=== PATIENT | male | born 1960 | race Caucasian/White ===

== ENCOUNTER 2021-03-06 06:59 | Day surgery (SDC) | payer MEDICARE, MEDICAID, SELFPAY ==
[2021-02-28 10:10] VITALS: BMI 26.2
--- NOTE | 2021-03-04 14:30 | P.CONAN_ITS ---
Documented by User: Michelle Gupta 03/04/21 14:31 HPI - Anesthesia Eval Consult details Narrative: 60yo M for Upper Endoscopy and Colonoscopy [facility] Past Medical History Medical History Back pain DDD (degenerative disc disease) Elevated cholesterol GERD (gastroesophageal reflux disease) History of asbestos exposure Hx of migraines Hypothyroidism Psoriatic arthritis Spinal stenosis Surgical History Surgical History Hx of cholecystectomy Hx of colonoscopy Hx of left inguinal hernia repair Hx of left inguinal hernia repair Hx of lumbar discectomy Hx of right inguinal hernia repair S/P scrotal varicocelectomy Social History Social History Are you a primary career and guidance counselor to a significant other at home: No Do you presently have visiting nurse or other home services: No Smoking Status: Never smoker Use of substances other than those prescribed or required for medical reasons: No Have you been hit, kicked, punched, or otherwise hurt by someone within the past year? If so, by whom?: No Advance Directives: No Advance Directives Information Provided: No Advance Directives on File: No Recently lost weight without trying: No Meds Allergies Allergy/AdvReac Type Severity Reaction Status Date / Time carisoprodol [From SOMA] Allergy Severe THROAT Unverified 02/28/21 09:58 SWELLING methotrexate [METHOTREXATE] Allergy Severe SEVERE Unverified 02/28/21 09:58 COUGH, cough monosodium glutamate [MSG] Allergy Severe MIGRAINES Unverified 02/28/21 09:58 Benadryl Allergy Unknown throat Uncoded 02/28/21 09:58 swelling Home Medications Medication Instructions Recorded Confirmed Last Taken Type diazepam 1 tab PO BEDTIME 02/28/21 02/28/21 Unknown History etanercept [Enbrel SureClick] 1 syringe SUBCUT QWEEK 02/28/21 02/28/21 Unknown History levothyroxine 1 tab PO DAILY 02/28/21 02/28/21 Unknown History omeprazole 1 cap PO DAILY 02/28/21 02/28/21 Unknown History oxycodone 1 tab PO QID PRN 02/28/21 02/28/21 Unknown History sumatriptan succinate 1 tab PO DIRECTED 02/28/21 02/28/21 Unknown History Exam Exam Date and Time: March 04, 2021 1430 Height,Weight and Vital Signs: Height 5 ft 9 in Weight 80.739 kg Assessment and Plan Assessment Anesthesia Assessment: Chart Reviewed Documented by User: Rachelle Vale 03/06/21 08:01 [facility] Past Medical History Medical History Back pain DDD (degenerative disc disease) Elevated cholesterol GERD (gastroesophageal reflux disease) History of asbestos exposure Hx of migraines Hypothyroidism Psoriatic arthritis Spinal stenosis Family History Family history of problems with anesthesia: No Surgical History Surgical History Hx of cholecystectomy Hx of colonoscopy Hx of left inguinal hernia repair Hx of left inguinal hernia repair Hx of lumbar discectomy Hx of right inguinal hernia repair S/P scrotal varicocelectomy History of Problems with Anesthesia: No Social History Social History Are you a primary career and guidance counselor to a significant other at home: No Do you presently have visiting nurse or other home services: No Smoking Status: Never smoker Use of substances other than those prescribed or required for medical reasons: No Have you been hit, kicked, punched, or otherwise hurt by someone within the past year? If so, by whom?: No Advance Directives: No Advance Directives Information Provided: No Advance Directives on File: No Recently lost weight without trying: No Meds Allergies Allergy/AdvReac Type Severity Reaction Status Date / Time carisoprodol [From SOMA] Allergy Severe THROAT Unverified 02/28/21 09:58 SWELLING methotrexate [METHOTREXATE] Allergy Severe SEVERE Unverified 02/28/21 09:58 COUGH, cough monosodium glutamate [MSG] Allergy Severe MIGRAINES Unverified 02/28/21 09:58 Benadryl Allergy Unknown throat Uncoded 02/28/21 09:58 swelling Home Medications Medication Instructions Recorded Confirmed Last Taken Type diazepam 1 tab PO BEDTIME 02/28/21 02/28/21 Unknown History etanercept [Enbrel SureClick] 1 syringe SUBCUT QWEEK 02/28/21 02/28/21 Unknown History levothyroxine 1 tab PO DAILY 02/28/21 02/28/21 Unknown History omeprazole 1 cap PO DAILY 02/28/21 02/28/21 Unknown History oxycodone 1 tab PO QID PRN 02/28/21 02/28/21 Unknown History sumatriptan succinate 1 tab PO DIRECTED 02/28/21 02/28/21 Unknown History Exam Height,Weight and Vital Signs: Vital Signs Temp Pulse Resp BP Pulse Ox 03/06/21 07:14 98.3 F 69 20 118/80 97 Airway Mallampati Class: II TM Dist: >3cm Loose/Missing/Broken Teeth: Yes (Chipped top front, a few mis-shapen, Cap top front) Heart: RRR Lungs: CTAB Assessment and Plan Assessment Anesthesia Assessment: Anesthesia Plan Discussed and Chart Reviewed Final Anesthetic Review NPO: Yes ASA Class: II Final Preanesthetic Review: No Changes in Pt Med Stat, Meds/Allgs Chart Reviewed, Consent Obtained/Reviewed and Anes Risks/Benef Reviewed Patient Risk: Low Procedure Risk: Low Assessment/Block/Sedation in SS: Assess/Block/Sedation-SS Anesthetic Plan Anesthetic Plan: MAC: Disposition: Standard PACU
[2021-03-06 07:14] VITALS: BP 118/80; PULSE 69; RESP 20; TEMP 36.8; O2SAT 97
[2021-03-06] MEDS: Lactated Ringers 1,000 ML 100 ML IVCONT (07:27)
[2021-03-06 09:18] VITALS: BP 96/48; PULSE 63; RESP 12; TEMP 36.8; O2SAT 96
--- NOTE | 2021-03-06 09:22 | PM.OP ---
Brief Operative Note Date of Service: 03/06/21 Pre-op diagnosis: GERD, Screening Post-op diagnosis: other (Hiatal hernia, Gastric polyps, Colon polyps) Procedure: EGD with biopsy, Colonoscopy to the cecum with snare polypectomy and Biospy/Removal of polyp Surgeon: Young Dillon Anesthesia: MAC Estimated blood loss (mL): 4.0 Pathology: other (A. EG Junction at 36cm B. Gastric polyps C. Ascending colon polyp D. Transverse colon polyp E. Polyp at 15cm) Condition: stable Disposition: other
[2021-03-06 09:33] VITALS: BP 105/63; PULSE 58; RESP 16; O2SAT 98
--- NOTE | 2021-03-06 11:09 | OP_ITS ---
SURGEON: Young Dillon MD INDICATIONS: The patient presents for evaluation of gastroesophageal reflux, personal history of tubular adenoma of the colon, and colorectal cancer screening. Full consent has been obtained from him for this, including risks of bleeding and perforation. PREOPERATIVE DIAGNOSIS: POSTOPERATIVE DIAGNOSIS: PROCEDURE PERFORMED: Esophagogastroduodenoscopy with biopsies, and colonoscopy to the cecum with biopsy and removal of polyp, and snare polypectomy. ESTIMATED BLOOD LOSS: COMPLICATIONS: ANESTHESIA: Monitored anesthesia care. ASSISTANTS: SPECIMENS: PREOPERATIVE DIAGNOSES: Gastroesophageal reflux, personal history of tubular adenoma of the colon, and colorectal cancer screening. POSTOPERATIVE DIAGNOSES: Gastroesophageal reflux, personal history of tubular adenoma of the colon, colorectal cancer screening, hiatal hernia, gastric polyps, colon polyps, diverticulosis, and internal hemorrhoids. DESCRIPTION OF PROCEDURE: The patient was placed in the left lateral decubitus position. The Olympus video gastroscope was passed in the posterior oropharynx and upper esophagus under direct vision. The scope was passed slowly into the distal esophagus. The gastroesophageal junction appeared at 36 cm. There was some minimal irregularity but no evidence of any esophagitis nor any definitive evidence of Mcneill's mucosa. The scope entered into the stomach. There was a small hiatal hernia. The scope was advanced to the pylorus and the duodenum was cannulated to the descending portion. The duodenum including the bulb appeared normal without mass or ulceration. The scope was withdrawn back to the stomach. The gastric antrum and body appeared normal with good peristalsis. The scope was retroflexed visualizing the proximal stomach carefully, which appeared normal, without any sign of mass or ulceration, other than some hyperplastic appearing gastric polyps. Some of these were biopsied. The scope was straightened and withdrawn back into the esophagus. Biopsies were obtained at the EG junction at 36 cm. Proximal to that, the esophageal mucosa appeared normal. The scope was withdrawn from the patient. He was turned around for the colonoscopy. The digital rectal exam revealed no abnormalities. The Olympus video pediatric colonoscope was entered into the rectum and advanced easily to the cecum. Once in the cecum, I did identify normal-appearing cecal pouch with appendiceal orifice and a normal-appearing ileocecal valve. The entire cecum and ileocecal valve appeared normal. There was transillumination of light deep in the right lower quadrant. The scope was slowly withdrawn assessing all mucosal surfaces carefully. Preparation was excellent. In the ascending colon, there was a flat approximately 3 or 4 mm polyp, which was biopsied and completely removed with cold biopsy forceps. In the transverse colon, there was approximately 8 mm polyp, which was snared and recovered by suction. The polypectomy site appeared clean, without any sign of residual polyp nor bleeding. At 15 cm was an approximately 6 to 8 mm polyp, which was snared and recovered by suction. The polypectomy site appeared clean, without any sign of residual polyp nor bleeding. I did not visualize any other polyps, colitis, or angiodysplasia. There was a mild amount of sigmoid diverticulosis. In the rectum, scope was retroflexed visualizing internal hemorrhoids, but no other pathology. The rectal mucosa appeared normal. The scope was straightened out and withdrawn from the patient. He tolerated the procedure well and was returned to the recovery area in stable condition. IMPRESSION: 1. Small hiatal hernia, gastroesophageal reflux. 2. Gastric polyps. 3. Colon polyps. 4. Diverticulosis. 5. Internal hemorrhoids. PLAN: The results of the pathology will be checked. I would recommend a repeat colonoscopy in 5 years. He was advised not to use any aspirin and NSAIDs for 1 week. He was advised to continue his daily omeprazole. MD BLAKE Ibarra/MATI / [id number] SANA
== END 2021-03-06 10:53 | disposition home or self-care (01) ==
PROVIDERS: PCP Physician Assistant; Visit Provider Internal Medicine
PROC: (CPT 45385; principal; 2021-03-06 08:00)
DX: Z12.11 Encounter for screening for malignant neoplasm of colon (principal); Z86.010 Personal history of colon polyps; D12.2 Benign neoplasm of ascending colon; D12.3 Benign neoplasm of transverse colon; K63.5 Polyp of colon; K57.30 Diverticulosis of large intestine without perforation or abscess without bleeding; K64.8 Other hemorrhoids; K21.9 Gastro-esophageal reflux disease without esophagitis; K31.7 Polyp of stomach and duodenum; K44.9 Diaphragmatic hernia without obstruction or gangrene; L40.50 Arthropathic psoriasis, unspecified; Z79.899 Other long term (current) drug therapy; Z77.090 Contact with and (suspected) exposure to asbestos; Z90.49 Acquired absence of other specified parts of digestive tract
CPT/HCPCS: 45385; 45380; 43239; 88305; 88342; J3010

== ENCOUNTER 2021-12-19 08:22 | Outpatient (REF) | payer MEDICARE, MEDICAID, SELFPAY ==
--- NOTE | 2021-12-19 15:35 | MHC.AU.HAS ---
Hearing Aid Evaluation Date of Visit: 12/19/21 Oracle Brm Developer Used: Historical Information: Description of Hearing: Normal hearing sloping to a mild to moderately-severe/severe sensorineural hearing loss. Current personal amplification information, if applicable: None Summary: Based on type and degree of hearing loss, as well as Mr. Zamarripa's report of hearing difficulties, binaural amplification is recommended to help facilitate improved communication. Discussed hearing aid styles and technologies. He is interested in rechargeable JESSICA style hearing aids. He is interested in streaming capabilities with his iPhone. Hearing Aid Prescription: Based on the individual?s shared listening needs, communication environments, dexterity, desire for connectivity, and personal preferences, the following prescription for amplification has been made: Right ear: Furnace Converter: ReSound Model: One 7 CHAUNCEY 61 DRWC Battery Size: Rechargeable Color: #75 Bookmobile Librarian: Size 1 MP Left ear: Left ear prescription to be same as Right Hearing Aid above: Furnace Converter: ReSound Model: One 7 CHAUNCEY 61 DRWC Battery Size: Rechargeable Color: #75 Bookmobile Librarian: Size 1 MP Plan of Care: Medical Clearance to be requested from PCP/ENT. Hearing Instrument Fitting to be scheduled when materials arrive. Hearing aids will be ordered once MD clearance is received. Primary Diagnosis: H90.3 Bilateral Sensorineural Hearing Loss Signature: Provider: Cuco Moses, CCC-A
--- NOTE | 2021-12-19 15:36 | MHC.AU.ANR ---
Adult Audiological Evaluation Date of Visit: 12/19/21 Reason for Appointment: Audiological evaluation due to concern for decreased hearing. Mr. Zamarripa feels his hearing has gradually decreased over time. 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 He notes that he often has to ask for repetition. Does patient feel they have a hearing loss?: Yes If Yes, Which Ear?: Both Ears When Was Hearing Difficulty First Noticed?: Years ago Hearing Handicap Inventory: HHIE SCORE: 26 Based on HHIE score, patient has: Severe perceived hearing handicap Ear History: Recent Ear Pain: Right Ear History of Ear Wax Buildup: Both Ears History of occupational noise exposure?: Yes: Toure, 30+ years Medical History: Medical History: Autoimmune Disease, Headache, Migraines, Mumps, Thyroid Disease Medical History (Other): Hypothyroid Allergies: Benadryl, carisoprodol, methotrexate, monosodium glutamate Medication List: Sumatriptan, levothroxine, omeprazole, fluticasone propionate, diazepam, oxycodone, naloxone, Enbrel Otoscopy: Right Ear: Unremarkable Left Ear: Unremarkable Tympanometry: Tympanometry performed due to: To assess integrity of the middle ear system Right Ear: Normal Middle Ear System (Type A) Left Ear: Normal Middle Ear System (Type A) Hearing Evaluation: Transducer(s) Used: Insert Earphones, Bone Conduction Method: Conventional Audiometry Stimuli Used: Pure Tones Right Ear: Description of Hearing: Normal hearing from 250-500 Hz, sloping to a mild sensorineural hearing loss (SNHL) from 0439-6860 Hz, a modereately-severe SNHL at 1899-2769 Hz, and rising to a moderate hearing loss at 6000 Hz and mild hearing loss at 8000 Hz. Left Ear: Description of Hearing: Normal hearing from 250-1000 Hz, sloping to a mild sensorineural hearing loss (SNHL) at 1500 Hz, a moderate SNHL at 2000 Hz, a severe SNHL at 3000 Hz, and rising to a moderately-severe SNHL at 4000 Hz, and mild hearing loss from 2541-2560 Hz. Speech Recognition Threshold (SRT): Method Used: Monitored Live Voice Stimuli Used: Spondee Words Right Ear: 25 dBHL Left Ear: 15 dBHL Word Discrimination: Method: Recorded Lists Word Lists Used: NU-6 Right Ear: 100% at 75 dBHL Left Ear: 100% at 75 dBHL QuickSIN: 4 dB SNR loss when presented at 75 dBHL binaurally, indicating mild [id number] understanding deficits. Recommendations: Audiological re-evaluation in one year. Trial with amplification is recommended. Mr. Zamarripa is interested in pursuing hearing aids. Discussed hearing aid styles and technologies. Decided to try JESSICA style rechargeable hearing aids. Medical clearance from a physician is required before fitting. Hearing aid(s) will be ordered after approval is received. Diagnosis: Primary Diagnosis: H90.3 Bilateral Sensorineural Hearing Loss Services Performed: Services Performed: Comprehensive Audiological Evaluation (CPT 25244) Tympanometry (CPT 89519) Signature: Student/Clinical Fellow: No I have reviewed/agreed with student/fellow documentation: N/A Provider: Cuco Moses, CCC-A
--- NOTE | 2021-12-20 15:38 | MHC.AU.MED ---
Medical Clearance for Hearing Instrumentation Date: 12/20/21 Patient Name: Emiliano Zamarripa Date of : 1960 Referring Provider: PAPITO Torres We have seen your patient on 12/19/21 and have determined that they are a candidate for amplification (See accompanying report). Specifically, they would benefit from: Hearing aid use in both ears There is a statute that addresses Medical Evaluation Requirements prior to fitting a patient with a hearing aid. According to [place] statute [facility] CMR:6.03(1), (a) General. Except as provided in 265 CMR 6.03(1)(b), a alarm signaler shall not sell a hearing aid unless the prospective user has presented to the alarm signaler a written statement signed by a licensed physician that states that the patient's hearing loss has been medically evaluated and the patient may be considered a candidate for a hearing aid. The medical evaluation must have taken place within the preceding six months. Please note: Due to the [place] Statute referenced above, we cannot accept a signature other than that of a licensed physician. SWATCH CLERK and PA signatures cannot be accepted. I am in agreement with the above recommendation. There is no medical contraindication for hearing instrumentation. Physician Signature Date Physician Name (Printed)
== END 2021-12-19 08:23 | disposition home or self-care (01) ==
LOC: HO.SH 08:22
PROVIDERS: Visit Provider Physician Assistant
DX: Z01.118 Encounter for examination of ears and hearing with other abnormal findings (principal); Z46.1 Encounter for fitting and adjustment of hearing aid; H90.3 Sensorineural hearing loss, bilateral
CPT/HCPCS: 92557; 92567; 92591

== ENCOUNTER 2022-01-10 09:11 | Outpatient (REF) | payer MEDICARE, MEDICAID, SELFPAY | END 2022-01-10 09:12 | disposition home or self-care (01) | LOC: HO.HAP 09:11 | PROVIDERS: Visit Provider Family Medicine | DX: Z46.1 Encounter for fitting and adjustment of hearing aid (principal); H90.3 Sensorineural hearing loss, bilateral | CPT/HCPCS: V5011; V5020; V5160; V5261 ==

== ENCOUNTER 2022-01-27 10:28 | Outpatient (REF) | payer MEDICARE, MEDICAID, SELFPAY ==
--- NOTE | 2022-01-27 13:22 | MHC.AU.HFU ---
Hearing Instrument Follow-Up- Binaural Date of Visit: 01/27/22 Right Ear: Certified Public Accountant: ReSound Model: One 7 [id number] Serial Number: [id number] Repair Warranty: 02/05/2025 Loss and Damage Warranty: 02/05/2025 Battery Size: Rechargeable Color: #75 Riverboat Master: Size 1 MP Type of Dome: Medium open dome Dispensed By: [facility] Date of Fittin01/10/22 Left Ear: Certified Public Accountant: ReSound Model: One 7 RT761 Serial Number: [id number] Repair Warranty: 02/05/2025 Loss and Damage Warranty: 02/05/2025 Battery Size: Rechargeable Color: #75 Riverboat Master: Size 1 MP Type of Dome: Medium open Dispensed By: [facility] Date of Fittin01/10/22 Follow-Up Summary: Patient reports that he is having trouble with the BTE portion of the hearing aids with his glasses and the left keeps sliding out of his ear. He states that his glasses are always rubbing over the hearing aids and it is very bothersome. Changed from medium open domes to large open domes for a more secure fit. He would like to try CIC style hearing aids with Bluetooth capabilities. Ordering a pair of ReSound Linx Quattro CIC-W hearing aids. Took earmold impressions without incident. He is going to hold on to the JESSICA hearing aids in the meantime. Recommendations: Patient will be contacted when materials have arrived. Diagnosis Code(s): Primary Diagnosis: H90.3 Bilateral Sensorineural Hearing Loss Signature: Provider: Cuco Moses, [facility]
== END 2022-01-27 10:29 | disposition home or self-care (01) ==
LOC: HO.HAP 10:28
PROVIDERS: Visit Provider Physician Assistant
DX: H90.3 Sensorineural hearing loss, bilateral (principal)
CPT/HCPCS: V5275

== ENCOUNTER 2022-02-27 13:42 | Outpatient (REF) | payer MEDICARE, MEDICAID, SELFPAY | END 2022-02-27 13:43 | disposition home or self-care (01) | LOC: HO.HAP 13:42 | PROVIDERS: Visit Provider Family Medicine | DX: Z13.89 Encounter for screening for other disorder (principal) ==

== ENCOUNTER 2022-03-05 14:01 | Outpatient (REF) | payer MEDICARE, MEDICAID, SELFPAY | END 2022-03-05 14:02 | disposition home or self-care (01) | LOC: HO.HAP 14:01 | PROVIDERS: Visit Provider Physician Assistant | DX: Z13.89 Encounter for screening for other disorder (principal) ==

== ENCOUNTER 2022-03-07 10:26 | Outpatient (AMB) | payer MEDICARE, MEDICAID, SELFPAY ==
--- NOTE | 2022-03-07 10:37 | A.OFFVIS_ITS ---
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 He is a patient of Dr. Gomez. He is seen for following urologic conditions - testicular microlithiasis - lower urinary tract symptoms Testicular microlithiasis Seen on prior ultrasound Reassurance provided Plan repeat ultrasound Urinary tract symptoms Progressive urinary weakness Feeling of incomplete emptying Plan for trial tamsulosin PFSH Medical History Tubular adenoma of colon Nocturia more than twice per night Back pain Psoriatic arthritis Spinal stenosis DDD (degenerative disc disease) Hypothyroidism GERD (gastroesophageal reflux disease) Hx of migraines History of asbestos exposure Elevated cholesterol Surgical History History of lumbar discectomy History of colonoscopy History of esophagogastroduodenoscopy (EGD) History of cholecystectomy History of right inguinal hernia repair History of left inguinal hernia repair S/P scrotal varicocelectomy Family History Brother Myocardial infarction Diabetes Mother Myocardial infarction Father No problems noted. Social History (Updated 10/13/23 @ 10:17 by Carola Carroll LPN) Are you a primary hospice care consultant to a significant other at home: No Do you presently have visiting nurse or other home services: No Patient Tobacco Use Status: Never used Tobacco Review of Systems Const Denies chills and Denies fever(s) Card Reports no additional complaints and Denies syncope Resp Denies cough GI Denies abdominal pain and Denies heartburn Reports as per HPI and Denies change in libido Neuro Denies syncope Psych Denies change in libido Endo Denies change in libido Physical Exam Const General: cooperative, healthy appearing, comfortable and no acute distress Orientation/consciousness: patient oriented x3 HEENT Face and sinus: Yes normal facial exam Mouth: moist mucous membranes Neck Neck: Yes normal visual inspection, Yes full ROM and Yes trachea midline Chest Chest palpation & inspection: normal inspection of the chest Resp Effort & Inspection: normal respiratory effort, able to speak in complete sentences and no respiratory distress GI Inspection: Yes normal to inspection Back/Spine/Pelvis Cervical Spine: normal cervical lordosis Thoracic/Lumbar Spine: thoracic and lumbar spine normal to inspection Skin General skin exam: no rashes or lesions noted Neuro General: patient oriented x3, gait normal, tone normal and moves all extremities Extrem General: Yes normal to inspection and Yes capillary refill normal Assessment & Plan Assessment & Plan (1) Testicular microlithiasis: Code(s): N50.89 - Other specified disorders of the male genital organs (2) Nocturia more than twice per night: Code(s): R35.1 - Nocturia Plan Ultrasound scrotum Trial tamsulosin Orders: Orders US scrotum 03/07/22 N43.3 - Hydrocele, unspecified, N50.89 - Other specified disorders of the male genital organs Medications: New tamsulosin 0.4 mg PO BEDTIME 30 caps 1RF 30 days N50.89 - Other specified disorders of the male genital organs, R35.1 - Nocturia, N40.1 - Benign prostatic hyperplasia with lower urinary tract symptoms Patient Instructions: Imaging studies, laboratory and physical exam results were discussed and reviewed in detail. No major barriers to patient understanding were identified. An opportunity to ask questions regarding the treatment plan was provided. All questions were answered. The patient expressed understanding and agreement with the above treatment plan. The patient is aware they should contact our office by phone for worsening of their current condition or the appearance of new urologic symptoms. Compliance is encouraged with any medications and followup testing that is ordered. It is a privilege to participate in the urologic care of your patient. If you have any questions or concerns regarding treatment for the above conditions, or other urologic issues, please do not hesitate to contact me. The office telephone contact is [phone]. This note is constructed using voice recognition software. While every effort has been made to ensure accuracy jewelry facer errors may have been included. Yours sincerely, Dr Bon Marie MD, [facility] - Urology Providers of Expert, Compassionate Care for the Genitourinary System Coding Level of Care Code New Pt Level 4 (23004) Diagnoses Testicular microlithiasis N50.89 Nocturia more than twice per night R35.1
== END 2022-03-07 11:39 | disposition home or self-care (01) ==
LOC: HO.HUSH 10:26
PROVIDERS: PCP Physician Assistant; Visit Provider Urology
DX: N50.89 Other specified disorders of the male genital organs (principal); R35.1 Nocturia
CPT/HCPCS: 99499

== ENCOUNTER → 2022-03-07 10:26 | Outpatient (BNVA) | payer MEDICARE, MEDICAID, SELFPAY | PROVIDERS: PCP Physician Assistant; Visit Provider Urology | DX: Z13.89 Encounter for screening for other disorder (principal) ==

== ENCOUNTER 2022-04-14 09:17 | Outpatient (REF) | payer MEDICARE, MEDICAID, SELFPAY | END 2022-04-14 09:18 | disposition home or self-care (01) | LOC: HO.HAP 09:17 | PROVIDERS: Visit Provider Physician Assistant | DX: Z13.89 Encounter for screening for other disorder (principal) ==

== ENCOUNTER 2022-04-24 09:18 | Outpatient (REF) | payer MEDICARE, MEDICAID, SELFPAY | END 2022-04-24 09:19 | disposition home or self-care (01) | LOC: HO.HAP 09:18 | PROVIDERS: Visit Provider Physician Assistant | DX: Z13.89 Encounter for screening for other disorder (principal) ==

== ENCOUNTER 2022-05-09 08:50 | Outpatient (REF) | payer MEDICARE, MEDICAID, SELFPAY | END 2022-05-09 08:51 | disposition home or self-care (01) | LOC: HO.HAP 08:50 | PROVIDERS: Visit Provider Physician Assistant | DX: Z46.1 Encounter for fitting and adjustment of hearing aid (principal); H90.3 Sensorineural hearing loss, bilateral | CPT/HCPCS: V5266 ==

== ENCOUNTER 2022-06-06 12:14 | Outpatient (REF) | payer MEDICARE, MEDICAID, SELFPAY ==
[2022-06-12 16:02] LABS: Thyroxine Binding Globulin 19.8 mcg/mL (12.7-25.1)
== END 2022-06-06 12:15 | disposition home or self-care (01) ==
LOC: HO.LAB 12:14
PROVIDERS: PCP Physician Assistant; Visit Provider Internal Medicine Rheumatology
DX: L40.50 Arthropathic psoriasis, unspecified (principal); Z79.899 Other long term (current) drug therapy
CPT/HCPCS: 36415; 84442

== ENCOUNTER 2022-06-10 09:12 | Outpatient (REF) | payer MEDICARE, MEDICAID, SELFPAY ==
--- NOTE | 2022-06-12 16:24 | MHC.AU.HFU ---
Hearing Instrument Follow-Up- Binaural Date of Visit: 06/10/22 Right Ear: Filling And Packing Supervisor: ReSound Model: Linx Quattro 7 [facility] Serial Number: [id number] Dispensed By: [facility] Date of Fittin02/27/22 Left Ear: Filling And Packing Supervisor: ReSound Model: Linx Quattro 7 [facility] Serial Number: [id number] Dispensed By: [facility] Date of Fittin02/27/2022 Follow-Up Summary: Patient's left hearing aid was dropped off on 06/10/22, reporting the Bluetooth was not working. He wanted to know if there were any better hearing aid options, as this is the second time since February this has happened. Hearing aid was inspected on 06/12/22 (no staff available 06/10 and 06/11). The external wireless antenna is loose. Contacted Marlyn Recinos at [facility]- she said that the hearing aids can still be made into ITCs so that the antenna will be protected on the inside. If patient continues to experience issues, she could potentially extend the trial period. Called patient to discuss- he would like to have the current ones remade into ITCs. We will send the left side out today, then the right side out when it has returned, as patient does not want to be without any hearing aids. Recommendations: Patient will be contacted when the left hearing aid has returned. Diagnosis Code(s): Primary Diagnosis: H90.3 Bilateral Sensorineural Hearing Loss Signature: Provider: Cuco Haro, [facility]
== END 2022-06-10 09:13 | disposition home or self-care (01) ==
LOC: HO.HAP 09:12
PROVIDERS: Visit Provider Physician Assistant
DX: Z13.89 Encounter for screening for other disorder (principal)

== ENCOUNTER 2022-06-26 09:38 | Outpatient (REF) | payer MEDICARE, MEDICAID, SELFPAY ==
--- NOTE | 2022-06-26 10:19 | MHC.AU.HFU ---
Hearing Instrument Follow-Up- Binaural Date of Visit: 06/26/22 Right Ear: Zoology Teacher: ReSound Model: Linx Quattro 7 CIC Serial Number: [id number] Repair Warranty: 03/10/2025 Battery Size: 10 Left Ear: Zoology Teacher: ReSound Model: Linx Quattro 7 ITC Serial Number: [id number] Repair Warranty: 03/10/2025 Battery Size: 312 Follow-Up Summary: Patient arrived to sampler pickup his remade left hearing aid. It was remade from a CIC to an ITC so that the wireless antennae could be internal and better protected. Patient was pleased with the fit and sound of the instrument. It was re-paired to his phone. He would like the same remake done to the right hearing aid. Recommendations: The right hearing aid was sent to [facility]. He will be contacted when the remake has arrived. Diagnosis Code(s): Primary Diagnosis: H90.3 Bilateral Sensorineural Hearing Loss Signature: Provider: Cuco Haro, [facility]
== END 2022-06-26 09:39 | disposition home or self-care (01) ==
LOC: HO.HAP 09:38
PROVIDERS: Visit Provider Physician Assistant
DX: Z13.89 Encounter for screening for other disorder (principal)

== ENCOUNTER 2022-06-27 08:32 | Outpatient (REF) | payer MEDICARE, MEDICAID, SELFPAY | END 2022-06-27 08:33 | disposition home or self-care (01) | LOC: HO.HAP 08:32 | PROVIDERS: Visit Provider Physician Assistant | DX: Z13.89 Encounter for screening for other disorder (principal) ==

== ENCOUNTER 2022-07-15 07:58 | Outpatient (REF) | payer MEDICARE, MEDICAID, SELFPAY ==
--- NOTE | 2022-07-15 12:01 | MHC.AU.HFU ---
Hearing Instrument Follow-Up- Binaural Date of Visit: 07/15/22 Right Ear: Director Reactor Projects: ReSound Model: Linx Quattro 7 CIC Serial Number: [id number] Repair Warranty: 03/10/2025 Loss and Damage Warranty: 03/10/2025 Battery Size: 10 Type of Wax Guard: ReSound Dispensed By: [facility] Date of Fittin02/27/22 Left Ear: Director Reactor Projects: ReSound Model: Linx Quattro 7 ITC Serial Number: [id number] Repair Warranty: 03/10/2025 Loss and Damage Warranty: 03/10/2025 Battery Size: 312 Dispensed By: [facility] Date of Fittin02/27/2022 Follow-Up Summary: Fit left aid from repair which needed to be paired with the Right CIC. Had difficulty with the software not identifying both aids at the same time. Guido from [facility] walked me through un-identifying each aid separately in software, then connecting aids together. Also unpaired cell phone from aids and ReSound nakita and started from the beginning. The nakita was working for both aids while in office, but did not practice phone calls. Patient wants to see how the left aid works before sending the right to make the same changes. Patient called office after this morning's appointment saying the same bluetooth problem he has been experiencing in last visit continues to be happening. He call ReSound support who told him this is an Apple problem and [employer] needs to update their ReSound nakita. Patient is very discouraged and wants to return the aids for credit. I plan to talk with Rosalva Cohn tomorrow and told patient we would contact our Explosive Operator Bomb an see if we should have the Rep come in. Signature:Provider: Cuco Vera, CCC-A
== END 2022-07-15 07:59 | disposition home or self-care (01) ==
LOC: HO.HAP 07:58
PROVIDERS: Visit Provider Physician Assistant
DX: Z13.89 Encounter for screening for other disorder (principal)

== ENCOUNTER 2022-07-30 15:36 | Outpatient (REF) | payer MEDICARE, MEDICAID, SELFPAY | END 2022-07-30 15:37 | disposition home or self-care (01) | LOC: HO.HAP 15:36 | PROVIDERS: Visit Provider Physician Assistant | DX: Z46.1 Encounter for fitting and adjustment of hearing aid (principal); H90.3 Sensorineural hearing loss, bilateral | CPT/HCPCS: V5275 ==

== ENCOUNTER 2022-08-15 11:34 | Outpatient (REF) | payer MEDICARE, MEDICAID, SELFPAY | END 2022-08-15 11:35 | disposition home or self-care (01) | LOC: HO.HAP 11:34 | PROVIDERS: Visit Provider Physician Assistant | DX: Z46.1 Encounter for fitting and adjustment of hearing aid (principal); H90.3 Sensorineural hearing loss, bilateral | CPT/HCPCS: V5266 ==

== ENCOUNTER 2022-10-10 16:00 | Outpatient (REF) | payer MEDICARE, MEDICAID, SELFPAY ==
--- NOTE | 2022-10-13 08:04 | MHC.AU.HFU ---
Hearing Instrument Follow-Up- Binaural Date of Visit: 10/10/22 Right Ear: Police Commanding Officer: Phonak Virto P 70-312 Serial #[id number] Repair Warranty: 11/05/2025 Loss and Damage Warranty: 11/05/2025 Service Plan: 08/15/2023 Battery Size: 312 Color: Eldora Type of Wax Guard: CeruStop Dispensed By: [facility] Date of Fittin08/15/2022 Left Ear: Police Commanding Officer: Phonak Virto P 70-312 Serial #[id number] Repair Warranty: 11/05/2022 Loss and Damage Warranty: 11/05/2022 Service Plan: 08/15/2023 Battery Size: 312 Type of Wax Guard: CeruStop Dispensed By: [facility] Date of Fittin08/15/2022 Follow-Up Summary: Patient is doing better with the Phonak aids and wants to keep them. Datalogging shows over 40% streaming and patient is changing battery every 2 1/2 days. Still having some problems with understanding TV, discussed trying bluetooth speakers next to his seat or try to pair to TV directly. . Recommendations: Hearing instrument follow-up or maintenance as needed.Please contact our clinic with any questions or concerns. Diagnosis Code(s):Primary Diagnosis: H90.3 Bilateral Sensorineural Hearing Loss Signature:Provider: Lilian Vera, [facility]
== END 2022-10-10 16:01 | disposition home or self-care (01) ==
LOC: HO.HAP 16:00
PROVIDERS: Visit Provider Physician Assistant
DX: Z13.89 Encounter for screening for other disorder (principal)

== ENCOUNTER 2022-10-27 09:44 | Outpatient (REF) | payer MEDICARE, MEDICAID, SELFPAY | END 2022-10-27 09:45 | disposition home or self-care (01) | LOC: HO.HAP 09:44 | PROVIDERS: Visit Provider Physician Assistant | DX: Z46.1 Encounter for fitting and adjustment of hearing aid (principal); H90.3 Sensorineural hearing loss, bilateral | CPT/HCPCS: V5266 ==

== ENCOUNTER → 2023-01-27 08:45 | Outpatient (REF) | payer MEDICARE, MEDICAID, SELFPAY ==
--- NOTE | 2023-01-27 08:51 | CA_ITS ---
Acquisition Time: 2023-01-27 09:16:26 Total Exercise Time: 00:06:47 Test Indications: Dyspnea CP Medications: LEVOTHYROXINE OMEPRAZOLE SUMATRIPTAN TIZANADINE Protocol: MAGALI Max HR: 136 BPM 85% of Pred: 159 BPM Max BP: 156/084 mmHG Max Work Load: 8.2 METS Exercise stress test with exercise 6 min 47 sec of Magali protocol, achieving 86% MPHR, with moderate sob, no chest discomfort, without arrythmia, with normotensive response to exercise, without EKG changes meeting criteria for ischemia. Test reviewed with Dr Abbott Referred By: Michelle Gomez Overread By: BORIS JACOB
== END ==
LOC: HO.CARD 08:45
PROVIDERS: PCP Physician Assistant; Visit Provider Physician Assistant
DX: R06.09 Other forms of dyspnea (principal)
CPT/HCPCS: 93017

== ENCOUNTER 2023-02-04 11:54 | Outpatient (REF) | payer MEDICARE, MEDICAID, SELFPAY | END 2023-02-04 11:55 | disposition home or self-care (01) | LOC: HO.HAP 11:54 | PROVIDERS: Visit Provider Physician Assistant | DX: H90.3 Sensorineural hearing loss, bilateral (principal) | CPT/HCPCS: V5266 ==

== ENCOUNTER 2023-05-19 09:39 | Outpatient (REF) | payer MEDICARE, MEDICAID, SELFPAY | END 2023-05-19 09:40 | disposition home or self-care (01) | LOC: HO.HAP 09:39 | PROVIDERS: Visit Provider Physician Assistant | DX: Z46.1 Encounter for fitting and adjustment of hearing aid (principal); H90.3 Sensorineural hearing loss, bilateral | CPT/HCPCS: V5266 ==

== ENCOUNTER 2023-06-05 08:40 | Outpatient (AMB) | payer MEDICARE, MEDICAID, SELFPAY ==
[2023-06-05 08:51] VITALS: BP 136/70; PULSE 65; O2SAT 98; BMI 27.8
--- NOTE | 2023-06-05 08:51 | MHC.OFFVIS ---
Intake Vital Signs 06/05/23 08:51 Height 5 ft 7 in Weight 177 lb 7.554 oz BMI 27.8 BP 136/70 Blood Pressure Location Lt brachial Position Sitting Pulse 65 Pulse Oximetry (%) 98 Oxygen Delivery Method Room Air Intake Visit Reasons: Abnormal CT scan Intake Note: New patient visit today states he feels like he has a hard time getting enough O2. Reports SOB with exertion.(2 flights of stairs) Teacher Of The Sight Impaired Required: No Marketing Programs Specialist: Marketing Programs Specialist offered & declined Accompanied by: Self / Same As Patient Allergies carisoprodol [From SOMA] Allergy (Severe, Verified 06/05/23 08:59) THROAT SWELLING methotrexate [METHOTREXATE] Allergy (Severe, Verified 06/05/23 08:59) SEVERE COUGH, cough monosodium glutamate [MSG] Allergy (Severe, Verified 06/05/23 08:59) MIGRAINES Benadryl Allergy (Unknown, Uncoded 06/05/23 08:59) throat swelling Medication List - Last Reconciled 06/05/23 by Carola Carroll LPN erythromycin 1 appl ophthalmic-Left DAILY 7 days etanercept (Enbrel SureClick) 1 syringe subcut QWEEK levothyroxine 1 tab PO DAILY omeprazole 1 cap PO DAILY oxycodone 1 tab PO QID PRN sumatriptan succinate 1 tab PO DIRECTED HPI Abnormal CT scan HPI Details Emiliano is a pleasant 63 year old male, never smoker, with underlying CAD and anxiety. He presents for pulmonary evaluation as he has had notable shortness of breath with moderate exertion over the past 3-4 months. He was also found to have elevated left hemidiaphragm on imaging that was new when compared to imaging ten years ago. 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 He was also sent for a stress test, as significant family history of CAD/RI. This was negative for any ischemic changes on EKG. He denies any personal or family history of lung conditions. He denies any environmental allergies. When reviewing record, states possible asbestos exposure, but patient denies. [facility] Medical History Back pain DDD (degenerative disc disease) Elevated cholesterol GERD (gastroesophageal reflux disease) History of asbestos exposure Hx of migraines Hypothyroidism Nocturia more than twice per night Psoriatic arthritis Spinal stenosis Surgical History Hx of cholecystectomy Hx of colonoscopy Hx of left inguinal hernia repair Hx of left inguinal hernia repair Hx of lumbar discectomy Hx of right inguinal hernia repair S/P scrotal varicocelectomy Social History (Updated 06/05/23 @ 09:00 by Carola Carroll LPN) Are you a primary customer care representative to a significant other at home: No Do you presently have visiting nurse or other home services: No Patient Tobacco Use Status: Never used Tobacco Review of Systems Const Denies chills, Denies excessive sweating, Denies fever(s), Denies headache(s) and Denies night sweats Eyes Denies dry eyes, Denies irritation and Denies itchy eyes ENT Reports Normal hearing present, Denies headache(s), Denies nasal congestion, Denies nasal discharge, Denies post nasal drip and Denies sore throat Card Denies chest pain, Denies chest pain at rest, Denies chest pain with activity, Denies leg edema, Denies orthopnea and Denies paroxysmal nocturnal dyspnea Resp Denies chest congestion, Denies cough, Denies excessive phlegm production, Denies pain on inspiration, Denies pain with cough, Denies stridor and Denies wheezing Musc Denies myalgias Neuro Reports Normal hearing present and Denies headache(s) Endo Denies excessive sweating Bebeto/Lymph Denies lymphadenopathy Aller/Immun Denies itchy eyes, Denies seasonal rhinorrhea and Denies wheezing Physical Exam Vital Signs: Last Vital Signs Pulse 65 06/05/23 08:51 BP 136/70 06/05/23 08:51 Pulse Ox 98 06/05/23 08:51 Oxygen Delivery Method Room Air 06/05/23 08:51 BMI result Body Mass Index 27.8 Const General: cooperative, healthy appearing, comfortable, no acute distress, well developed and alert Orientation/consciousness: patient oriented x3 Limitations: no limitations HEENT Head: Yes normal to inspection, Yes normocephalic and Yes atraumatic Ears: hearing grossly normal bilaterally and external ears normal Eyes General: appearance normal, both eyes and all related structures Eyelids: Yes eyelids normal Sclerae: sclerae normal EOM: EOMs intact bilaterally Neck Neck: Yes normal visual inspection and Yes no lymphadenopathy Lymphatic: no lymphadenopathy noted Chest Chest palpation & inspection: normal inspection of the chest Resp Other: diminished in left lower base Effort & Inspection: normal respiratory effort, able to speak in complete sentences, no audible wheezes, no cough, no stridor, not tachypneic, no tripod positioning and no use of accessory muscles Cardio Jugular venous distension: no JVD Rate: regular rate Rhythm: regular rhythm Skin Other: warm, dry General skin exam: no rashes or lesions noted Neuro General: patient oriented x3 Cranial nerves: Yes Normal hearing present Cognition (Neuro): normal cognition Gait exam (Neuro): Normal gait present Extrem General: Yes normal to inspection, Yes capillary refill normal, Yes no clubbing, cyanosis or edema and Yes no pedal edema Psych Appearance: grossly normal and well kempt Speech and movement: Normal speech and movement present and Clear speech present Affect: normal affect Attitude: cooperative Thought process: Normal thought process present Thought content: Normal thought content present Insight: Good insight present (Psych) Judgement: Good judgement present (Psych) Results Reviewed Results Reviewed: Assessment & Plan Assessment & Plan (1) Dyspnea on exertion: Code(s): R06.09 - Other forms of dyspnea (2) Elevated hemidiaphragm: Code(s): J98.6 - Disorders of diaphragm Plan Discussed findings on imaging, report above. Explained to patient that thinning and atelectatis is likely related to decreased lung expansion secondary to reduced function of elevated left hemidiaphragm. Will send for PFT to see if this is contributing to his dyspnea on exertion. If there are consistencies, then consider SNIFF test. All questions were answered and patient is in agreement of plan. Will follow up to review results. Orders: Orders PFT pulmonary function test Today R06.09 - Other forms of dyspnea Coding Level of Care Code New Pt Level 4 (76077) Diagnoses Dyspnea on exertion R06.09 Elevated hemidiaphragm J98.6
== END 2023-06-05 09:28 | disposition home or self-care (01) ==
PROVIDERS: PCP Physician Assistant; Visit Provider Nurse Practitioner Family
DX: R06.09 Other forms of dyspnea (principal); J98.6 Disorders of diaphragm
CPT/HCPCS: 99204

== ENCOUNTER → 2023-06-05 08:40 | Outpatient (BNVA) | payer MEDICARE, MEDICAID, SELFPAY | PROVIDERS: PCP Physician Assistant; Visit Provider Nurse Practitioner Family | DX: R06.09 Other forms of dyspnea (principal); J98.6 Disorders of diaphragm | CPT/HCPCS: 99202 ==

== ENCOUNTER 2023-06-22 07:21 | Outpatient (REF) | payer MEDICARE, MEDICAID, SELFPAY ==
--- NOTE | 2023-06-22 08:09 | PFT_ITS ---
INDICATION: Dyspnea. SPIROMETRY: FEV1 to FVC of 83% with an FEV1 of 1.96 L, which is 55% predicted and an FVC of 2.38 L, which is 52% predicted. No significant response to bronchodilators noted. Of note, the [id number] is down to 69% predicted and did have a significant response to bronchodilation. Maximum voluntary ventilation 50% predicted. LUNG VOLUMES: Total lung capacity 54% predicted with an expiratory reserve volume of 19% predicted. DIFFUSION CAPACITY: DLCO 81% predicted. COMPARISON: None. INTERPRETATION: No obstructive ventilatory defects and no significant response to bronchodilators noted, although there is evidence of some small airway disease. There is also a moderate decrease in the maximum voluntary ventilation, which can be secondary to deconditioning, although neuromuscular conditions need to be also be considered. There is a restrictive ventilatory defect consistent with moderate restrictive lung disease. Again, neuromuscular condition should be considered. In addition to that, parenchymal lung condition should be considered as well. Diffusion capacity is low normal. Clinical correlation warranted. Further imaging also warranted. Gary Prado MD MR/MODL / [id number]
== END 2023-06-22 07:22 | disposition home or self-care (01) ==
LOC: HO.RESP 07:21
PROVIDERS: PCP Physician Assistant; Visit Provider Nurse Practitioner Family
DX: R06.09 Other forms of dyspnea (principal)
CPT/HCPCS: 94010; 94727; 94729

== ENCOUNTER → 2023-06-22 08:09 | Outpatient (BNV) | payer MEDICARE, MEDICAID, SELFPAY | PROVIDERS: PCP Physician Assistant; Visit Provider Hospitalist | DX: R06.09 Other forms of dyspnea (principal) | CPT/HCPCS: 94060; 94727; 94729 ==

== ENCOUNTER 2023-06-30 08:53 | Outpatient (AMB) | payer MEDICARE, MEDICAID, SELFPAY ==
[2023-06-30 08:57] VITALS: BP 138/80; PULSE 78; O2SAT 98; BMI 27.4
--- NOTE | 2023-06-30 08:57 | A.OFFVIS_ITS ---
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: No Cider Press Operator: Cider Press Operator offered & declined Accompanied by: Self / Same As Patient Allergies carisoprodol [From SOMA] Allergy (Severe, Verified 06/30/23 09:01) THROAT SWELLING methotrexate [METHOTREXATE] Allergy (Severe, Verified 06/30/23 09:01) SEVERE COUGH, cough monosodium glutamate [MSG] Allergy (Severe, Verified 06/30/23 09:01) MIGRAINES Benadryl Allergy (Unknown, Uncoded 06/30/23 09:01) throat swelling Medication List - Last Reconciled 06/30/23 by Carola Carroll LPN erythromycin 1 appl ophthalmic-Left DAILY 7 days etanercept (Enbrel SureClick) 1 syringe subcut QWEEK levothyroxine 1 tab PO DAILY omeprazole 1 cap PO DAILY oxycodone 1 tab PO QID PRN sumatriptan succinate 1 tab PO DIRECTED HPI Abnormal CT scan HPI Details Emiliano is a pleasant 63 year old male, never smoker, with underlying CAD and anxiety. He was initially referred for new findings of elevated left hemidiaphragm with associated dyspnea on moderate exertion. 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 He denies any cervical or thoracic surgeries. Today he is here for PFT results. [facility] Medical History Back pain DDD (degenerative disc disease) Elevated cholesterol GERD (gastroesophageal reflux disease) History of asbestos exposure Hx of migraines Hypothyroidism Nocturia more than twice per night Psoriatic arthritis Spinal stenosis Surgical History Hx of cholecystectomy Hx of colonoscopy Hx of left inguinal hernia repair Hx of left inguinal hernia repair Hx of lumbar discectomy Hx of right inguinal hernia repair S/P scrotal varicocelectomy Social History (Updated 06/05/23 @ 09:00 by Carola Carroll LPN) Are you a primary dog day care attendant to a significant other at home: No Do you presently have visiting nurse or other home services: No Patient Tobacco Use Status: Never used Tobacco Review of Systems Const Denies chills, Denies excessive sweating, Denies fever(s), Denies headache(s) a nd Denies night sweats Eyes Denies dry eyes, Denies irritation and Denies itchy eyes ENT Reports Normal hearing present, Denies headache(s), Denies nasal congestion, Denies nasal discharge, Denies post nasal drip and Denies sore throat Card Denies chest pain, Denies chest pain at rest, Denies chest pain with activity, Denies leg edema, Denies orthopnea and Denies paroxysmal nocturnal dyspnea Resp Denies chest congestion, Denies cough, Denies excessive phlegm production, Denies pain on inspiration, Denies pain with cough, Denies stridor and Denies wheezing Musc Denies myalgias Neuro Reports Normal hearing present and Denies headache(s) Endo Denies excessive sweating Bebeto/Lymph Denies lymphadenopathy Aller/Immun Denies itchy eyes, Denies seasonal rhinorrhea and Denies wheezing Physical Exam Vital Signs: Last Vital Signs Pulse 78 06/30/23 08:57 BP 138/80 06/30/23 08:57 Pulse Ox 98 06/30/23 08:57 Oxygen Delivery Method Room Air 06/30/23 08:57 BMI result Body Mass Index 27.4 Const General: cooperative, healthy appearing, comfortable, no acute distress, well developed and alert Orientation/consciousness: patient oriented x3 Limitations: no limitations HEENT Head: Yes normal to inspection, Yes normocephalic and Yes atraumatic Ears: hearing grossly normal bilaterally and external ears normal Eyes General: appearance normal, both eyes and all related structures Eyelids: Yes eyelids normal Sclerae: sclerae normal EOM: EOMs intact bilaterally Neck Neck: Yes normal visual inspection and Yes no lymphadenopathy Lymphatic: no lymphadenopathy noted Chest Chest palpation & inspection: normal inspection of the chest Resp Other: diminished in left lower base Effort & Inspection: normal respiratory effort, able to speak in complete sentences, no audible wheezes, no cough, no stridor, not tachypneic, no tripod positioning and no use of accessory muscles Cardio Jugular venous distension: no JVD Rate: regular rate Rhythm: regular rhythm Skin Other: warm, dry General skin exam: no rashes or lesions noted Neuro General: patient oriented x3 Cranial nerves: Yes Normal hearing present Cognition (Neuro): normal cognition Gait exam (Neuro): Normal gait present Extrem General: Yes normal to inspection, Yes capillary refill normal, Yes no clubbing, cyanosis or edema and Yes no pedal edema Psych Appearance: grossly normal and well kempt Speech and movement: Normal speech and movement present and Clear speech present Affect: normal affect Attitude: cooperative Thought process: Normal thought process present Thought content: Normal thought content present Insight: Good insight present (Psych) Judgement: Good judgement present (Psych) Results Reviewed Results Reviewed: Assessment & Plan Assessment & Plan (1) Elevated hemidiaphragm: Code(s): J98.6 - Disorders of diaphragm (2) Dyspnea on exertion: Code(s): R06.09 - Other forms of dyspnea Plan Reviewed PFT findings with patient, which revealed some evidence of small airway disease with moderate decrease in both the maximum voluntary ventilation and restrictive ventilatory defect which could be secondary to deconditioning or neuromuscular etiology such as diaphragmatic injury. Will send for SNIFF test to rule out diaphragmatic injury. Will also send in albuterol to trial PRN as he had some response to bronchodilation in small to medium airways on PFT. All questions were answered and patient is in agreement of plan. Will follow up to review results. Orders: Orders IR fluoroscopy <1hr Today J98.6 - Disorders of diaphragm Medications: New albuterol sulfate 90 mcg/actuation 2 puffs inhalation Q4-6H PRN 1 ea 2RF shortness of breath or wheezing Coding Level of Care Code Est Pt Level 4 (78530) Diagnoses Elevated hemidiaphragm J98.6 Dyspnea on exertion R06.09
== END 2023-06-30 09:48 | disposition home or self-care (01) ==
PROVIDERS: PCP Physician Assistant; Visit Provider Nurse Practitioner Family
DX: J98.6 Disorders of diaphragm (principal); R06.09 Other forms of dyspnea
CPT/HCPCS: 99214

== ENCOUNTER → 2023-06-30 08:53 | Outpatient (BNVA) | payer MEDICARE, MEDICAID, SELFPAY | PROVIDERS: PCP Physician Assistant; Visit Provider Nurse Practitioner Family | DX: J98.6 Disorders of diaphragm (principal); R06.09 Other forms of dyspnea; Z79.891 Long term (current) use of opiate analgesic | CPT/HCPCS: 99212 ==

== ENCOUNTER 2023-07-10 10:44 | Outpatient (REF) | payer MEDICARE, MEDICAID, SELFPAY ==
--- NOTE | ~2023-07-10 | FL_ITS ---
PROCEDURE: XR FLUOROSCOPY/SNIFF TEST CLINICAL INFORMATION: Nonmovement of left diaphragm. COMPARISON: None available. TECHNIQUE: Inspiration and expiration AP and lateral views. FINDINGS: Sniff test of both diaphragms are performed. There is normal movement of the right hemidiaphragm on inspiration, expiration and sniff test. There is no mobility of the left diaphragm on inspiration/expiration or sniff test on both AP and lateral views. The left hemidiaphragm is slightly higher in position compared to right side. FLUOROSCOPY TIME: 1.0 minute DOSE AREA PRODUCT: 9.287 uGy-m2 (microgray-meter squared) FL/FL fluoroscopy <1hr IMPRESSION: Normal right hemidiaphragm with normal movement on inspiration and expiration. Immobile left hemidiaphragm which is mildly elevated on inspiration and expiration views and sniff test.
== END 2023-07-10 10:45 | disposition home or self-care (01) ==
LOC: HO.XRAY 10:44
PROVIDERS: Visit Provider Nurse Practitioner Family
DX: J98.6 Disorders of diaphragm (principal)
CPT/HCPCS: 76000

== ENCOUNTER → 2023-07-10 10:46 | Outpatient (BNV) | payer MEDICARE, MEDICAID, SELFPAY | PROVIDERS: Visit Provider Radiology Diagnostic Radiology | DX: J98.6 Disorders of diaphragm (principal) | CPT/HCPCS: 76000 ==

== ENCOUNTER 2023-07-15 08:54 | Outpatient (AMB) | payer MEDICARE, MEDICAID, SELFPAY ==
--- NOTE | 2023-07-15 08:55 | MHC.OFFVIS ---
Intake Vital Signs 07/15/23 08:59 Weight 177 lb 7.554 oz BP 126/72 Blood Pressure Location Rt brachial Position Sitting Pulse 74 Pulse Oximetry (%) 97 Oxygen Delivery Method Room Air Intake Visit Reasons: Sniff test follow up Allergies carisoprodol [From SOMA] Allergy (Severe, Verified 07/15/23 09:02) THROAT SWELLING methotrexate [METHOTREXATE] Allergy (Severe, Verified 07/15/23 09:02) SEVERE COUGH, cough monosodium glutamate [MSG] Allergy (Severe, Verified 07/15/23 09:02) MIGRAINES Benadryl Allergy (Unknown, Uncoded 07/15/23 09:02) throat swelling Medication List - Last Reconciled 07/15/23 by Lauren Roa LPN albuterol sulfate 90 mcg/actuation 2 puffs inhalation Q4-6H PRN erythromycin 1 appl ophthalmic-Left DAILY 7 days etanercept (Enbrel SureClick) 1 syringe subcut QWEEK levothyroxine 1 tab PO DAILY omeprazole 1 cap PO DAILY oxycodone 1 tab PO QID PRN sumatriptan succinate 1 tab PO DIRECTED HPI Sniff test follow up HPI Details Emiliano is a pleasant 63 year old male, never smoker, with underlying CAD and anxiety. He was initially referred for new findings of elevated left hemidiaphragm with associated dyspnea on moderate exertion. 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 He denies any cervical or thoracic surgeries. Today he is here to review SNIFF test results. Since the last visit he has been using albuterol PRN with mild improvement of symptoms. [facility] Medical History Back pain DDD (degenerative disc disease) Elevated cholesterol GERD (gastroesophageal reflux disease) History of asbestos exposure Hx of migraines Hypothyroidism Nocturia more than twice per night Psoriatic arthritis Spinal stenosis Surgical History Hx of cholecystectomy Hx of colonoscopy Hx of left inguinal hernia repair Hx of left inguinal hernia repair Hx of lumbar discectomy Hx of right inguinal hernia repair S/P scrotal varicocelectomy Social History (Updated 06/05/23 @ 09:00 by Carola Carroll LPN) Are you a primary child care leader to a significant other at home: No Do you presently have visiting nurse or other home services: No Patient Tobacco Use Status: Never used Tobacco Physical Exam Vital Signs: Last Vital Signs Pulse 74 07/15/23 08:59 BP 126/72 07/15/23 08:59 Pulse Ox 97 07/15/23 08:59 Oxygen Delivery Method Room Air 07/15/23 08:59 Results Reviewed Results Reviewed: [address] [address] Fluoroscopy Report Signed Patient: Emiliano Zamarripa MR#: [id number] : 1960 Acct:[id number] Age/Sex: 63 / M ADM Date: 07/10/23 Loc: HO.XRAY Attending Dr: Dee Holder NP Ordering Physician: Dee Holder NP Date of Service: 07/10/23 Procedure(s): FL fluoroscopy <1hr Accession Number(s): [id number] cc: Dee Holder NP~ PROCEDURE: XR FLUOROSCOPY/SNIFF TEST CLINICAL INFORMATION: Nonmovement of left diaphragm. COMPARISON: None available.? TECHNIQUE: Inspiration and expiration AP and lateral views. FINDINGS: Sniff test of both diaphragms are performed. There is normal movement of the right hemidiaphragm on inspiration, expiration and sniff test. There is no mobility of the left diaphragm on inspiration/expiration or sniff test on both AP and lateral views. The left hemidiaphragm is slightly higher in position compared to right side. FLUOROSCOPY TIME: 1.0 minute DOSE AREA PRODUCT: 9.287 uGy-m2 (microgray-meter squared) FL/FL fluoroscopy <1hr IMPRESSION: Normal right hemidiaphragm with normal movement on inspiration and expiration. ? Immobile left hemidiaphragm which is mildly elevated on inspiration and expiration views and sniff test. Assessment & Plan Assessment & Plan (1) Elevated hemidiaphragm: Code(s): J98.6 - Disorders of diaphragm (2) Dyspnea on exertion: Code(s): R06.09 - Other forms of dyspnea (3) Cervicalgia: Code(s): M54.2 - Cervicalgia Plan Reviewed SNIFF findings with patient, which revealed immobile left hemidiaphragm and right hemidiaphragm with normal movement. Briefly discussed plication of the diaphragm and patient would like to a referral to thoracic surgery. We did review his symptoms are only mild to moderate at this time and procedure is unlikely. Will trial ICS/LABA and follow up in three months to assess response. Patient also noted to have progressively worsening cervicalgia. Will refer to pain management. All questions were answered and patient is in agreement of plan. Orders: Referrals Thoracic Surgery Referral J98.6 - Disorders of diaphragm Pain Management Referral M54.2 - Cervicalgia Medications: New fluticasone furoate-vilanterol 100-25 mcg/dose (Breo Ellipta) 1 inh inhalation DAILY 60 ea 3RF Coding Level of Care Code Est Pt Level 4 (48805) Diagnoses Elevated hemidiaphragm J98.6 Dyspnea on exertion R06.09 Cervicalgia M54.2
[2023-07-15 08:59] VITALS: BP 126/72; PULSE 74; O2SAT 97
== END 2023-07-15 09:29 | disposition home or self-care (01) ==
PROVIDERS: PCP Physician Assistant Medical; Visit Provider Nurse Practitioner Family
DX: J98.6 Disorders of diaphragm (principal); R06.09 Other forms of dyspnea; M54.2 Cervicalgia
CPT/HCPCS: 99214

== ENCOUNTER → 2023-07-15 08:54 | Outpatient (BNVA) | payer MEDICARE, MEDICAID, SELFPAY | PROVIDERS: Visit Provider Nurse Practitioner Family | DX: J98.6 Disorders of diaphragm (principal); R06.09 Other forms of dyspnea; M54.2 Cervicalgia | CPT/HCPCS: 99212 ==

== ENCOUNTER 2023-08-10 08:58 | Outpatient (AMB) | payer MEDICARE, MEDICAID, SELFPAY ==
--- NOTE | 2023-08-10 08:59 | A.OFFVIS_ITS ---
Intake Vital Signs 08/10/23 09:00 Height 5 ft 7 in Weight 178 lb BMI 27.9 BP 146/71 H Blood Pressure Location Lt brachial Position Sitting Respiration 14 Pulse 66 Pulse Source Pulse Oximeter Pulse Oximetry (%) 97 Oxygen Delivery Method Room Air Intake Visit Reasons: Cervicalgia Allergies carisoprodol [From SOMA] Allergy (Severe, Verified 08/10/23 09:01) THROAT SWELLING methotrexate [METHOTREXATE] Allergy (Severe, Verified 08/10/23 09:01) SEVERE COUGH, cough monosodium glutamate [MSG] Allergy (Severe, Verified 08/10/23 09:01) MIGRAINES Benadryl Allergy (Unknown, Uncoded 08/10/23 09:01) throat swelling tbhq Adverse Reaction (Severe, Uncoded 08/10/23 09:01) migraines Medication List - Last Reconciled 08/10/23 by María Nielsen LPN albuterol sulfate 90 mcg/actuation 2 puffs inhalation Q4-6H PRN etanercept (Enbrel SureClick) 1 syringe subcut QWEEK fluticasone furoate-vilanterol 100-25 mcg/dose (Breo Ellipta) 1 inh inhalation DAILY levothyroxine 1 tab PO DAILY omeprazole 1 cap PO DAILY oxycodone 1 tab PO QID PRN sumatriptan succinate 1 tab PO DIRECTED HPI Cervicalgia HPI Details 63-year-old male who presents today to t he office for new patient evaluation of cervicalgia. The patient has a history of neck and shoulder pain that has been worsening for the past couple of months. 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 The pain is described as an aching stabbing sensation in bilateral shoulders as well as in arms and pins and needles sensation in the neck. It is rated at 5/10 in the right shoulder up to 8/10 in intensity in the entire area. He is unable to sleep normally, do his daily activities, or function normally.?He reports numbness and paresthesia sensations in his shoulder, arm, and neck, mostly on the left side.?The pain is constant throughout the day and worsens with weather changes and movements. The patient had two lumbar spine surgeries for blowing his disc while working about thirty years ago. 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 These include strengthening and stretching exercises with resistant bands and a traction device. He denies any weakness. His primary care physician, Dr. Gomez, prescribes oxycodone for pain management. He denies any implants or hardware in his body. He has a hernia mesh in place. [facility]ACED BY [facility] Medical History (Updated 07/23/23 @ 11:13 by Danay Osuna PA-C) Tubular adenoma of colon Nocturia more than twice per night Back pain Psoriatic arthritis Spinal stenosis DDD (degenerative disc disease) Hypothyroidism GERD (gastroesophageal reflux disease) Hx of migraines History of asbestos exposure Elevated cholesterol Surgical History (Updated 07/23/23 @ 11:12 by Danay Osuna PA-C) History of lumbar discectomy History of colonoscopy History of esophagogastroduodenoscopy (EGD) History of cholecystectomy History of right inguinal hernia repair History of left inguinal hernia repair S/P scrotal varicocelectomy Family History (Updated 07/23/23 @ 11:16 by Danay Osuna PA-C) Brother Myocardial infarction Diabetes Mother Myocardial infarction Father No problems noted. Social History (Updated 06/05/23 @ 09:00 by Carola Carroll LPN) Are you a primary daycare worker to a significant other at home: No Do you presently have visiting nurse or other home services: No Patient Tobacco Use Status: Never used Tobacco Review of Systems Const All systems reviewed & are unremarkable except as noted in HPI and below Physical Exam Vital Signs: Last Vital Signs Pulse 66 08/10/23 09:00 Resp 14 08/10/23 09:00 BP 146/71 H 08/10/23 09:00 Pulse Ox 97 08/10/23 09:00 Oxygen Delivery Method Room Air 08/10/23 09:00 BMI result Body Mass Index 27.9 General: Appears afebrile. Alert and oriented. Mood and affect appropriate. Follows and participates in conversation appropriately. Respiratory effort is unlabored. Able to transition from sit to stand unassisted. Ambulates with bilaterally normal heel strike and toe off. NECK: Cervical extension reproduces pain. Facet loading is positive on both sides. Neck flexion reproduces the pain on back side of the neck. External rotation of the arm reproduces pain in the left shoulder. BACK: There is a well healed incision from a prior lumbar surgery in the left paramedian position. There is stiffness on palpation of the lumbar spine. There is no tenderness on palpation. There appears to be some loss of lumbar lordosis on palpation secondary to muscle spasm. Results Reviewed Results Reviewed: No imaging is available for review. Assessment & Plan Assessment & Plan (1) Cervicalgia: Code(s): M54.2 - Cervicalgia Plan Neck pain appears to be secondary to cervical radiculopathy, potentially spinal stenosis. The patient is concerned about diaphragmatic paralysis secondary to cervical compression of the phrenic nerve roots. Ordered an MRI of the cervical spine to assess the neck pain. Patient requested order to be placed for an open MRI due to history of claustrophobia. The patient will receive a call to schedule an appointment. The patient will follow up for review of the MRI findings afterwards. Scribed for Dr. Hester by Danny Nielson, medical device engineer, on 08/10/2023. I, Dr. Hester, have personally reviewed and agree with the information entered by the scribe. Orders: Orders MR cervical spine wo con Today M54.2 - Cervicalgia Coding Level of Care Code New Pt Level 4 (65526) Diagnoses Cervicalgia M54.2
[2023-08-10 09:00] VITALS: BP 146/71; PULSE 66; RESP 14; O2SAT 97; BMI 27.9
== END 2023-08-10 09:25 | disposition home or self-care (01) ==
PROVIDERS: PCP Physician Assistant Medical; Visit Provider Internal Medicine
DX: M54.2 Cervicalgia (principal)
CPT/HCPCS: 99204

== ENCOUNTER → 2023-08-10 08:58 | Outpatient (BNVA) | payer MEDICARE, MEDICAID, SELFPAY | PROVIDERS: Visit Provider Internal Medicine ==

== ENCOUNTER 2023-08-21 09:42 | Outpatient (AMB) | payer MEDICARE, MEDICAID, SELFPAY ==
--- NOTE | 2023-08-21 10:11 | MHC.OFFVIS ---
Intake Vital Signs 08/21/23 10:29 Height 5 ft 7 in Weight 178 lb BMI 27.9 BP 130/70 Blood Pressure Location Lt brachial Position Sitting Pulse 72 Pulse Oximetry (%) 97 Intake Visit Reasons: Disorders of diaphragm Allergies carisoprodol [From SOMA] Allergy (Severe, Verified 08/21/23 10:31) THROAT SWELLING methotrexate [METHOTREXATE] Allergy (Severe, Verified 08/21/23 10:31) SEVERE COUGH, cough monosodium glutamate [MSG] Allergy (Severe, Verified 08/21/23 10:31) MIGRAINES Benadryl Allergy (Unknown, Uncoded 08/21/23 10:31) throat swelling tbhq Adverse Reaction (Severe, Uncoded 08/21/23 10:31) migraines Medication List - Last Reconciled 08/21/23 by Mackenzie Valadez MD albuterol sulfate 90 mcg/actuation 2 puffs inhalation Q4-6H PRN etanercept (Enbrel SureClick) 1 syringe subcut QWEEK fluticasone furoate-vilanterol 100-25 mcg/dose (Breo Ellipta) 1 inh inhalation DAILY levothyroxine 1 tab PO DAILY omeprazole 1 cap PO DAILY oxycodone 1 tab PO QID PRN sumatriptan succinate 1 tab PO DIRECTED HPI Disorders of diaphragm HPI Details 63-year-old male with history lower lumbar back surgery tells me noted in November of this year acutely developing shortness of breath with activity that normally did not cause him to have any respiratory difficulty. For example just carrying a bucket of water about 20 ft he was breathing are not after that. He did have some workup and a chest x-ray was done which showed an elevated left hemidiaphragm moderately and then had a sniff test done on 07/10/2023. This was reviewed by me directly and shows no movement of the left hemidiaphragm with at an elevated position. This is consistent with a phrenic nerve palsy. He also tells me that he has some cervical spine issues and is awaiting an MRI ordered by the pain management team here at [place]. He does need to have an open MRI as the closed MRIs give him significant anxiety. 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 He reports feeling generally good health denies unintentional weight loss decreased appetite fevers chills or soaking sweats. He denies cough or hemoptysis. Shortness of breath is as above. Other than above, 12 point review of systems was done and documented separately in the office chart with detailed social and family history. [facility] Medical History Tubular adenoma of colon Nocturia more than twice per night Back pain Psoriatic arthritis Spinal stenosis DDD (degenerative disc disease) Hypothyroidism GERD (gastroesophageal reflux disease) Hx of migraines History of asbestos exposure Elevated cholesterol Surgical History History of lumbar discectomy History of colonoscopy History of esophagogastroduodenoscopy (EGD) History of cholecystectomy History of right inguinal hernia repair History of left inguinal hernia repair S/P scrotal varicocelectomy Family History Brother Myocardial infarction Diabetes Mother Myocardial infarction Father No problems noted. Social History Are you a primary manager wound care to a significant other at home: No Do you presently have visiting nurse or other home services: No Patient Tobacco Use Status: Never used Tobacco Physical Exam Vital Signs: Last Vital Signs Pulse 72 08/21/23 10:29 BP 130/70 08/21/23 10:29 Pulse Ox 97 08/21/23 10:29 BMI result Body Mass Index 27.9 General: No acute distress HEENT: Moist mucous membranes, normocephalic, pupils equal round and reactive to light. Neck: No thyromegaly, supple, no JVD Lymph: No cervical, supraclavicular, or other lymphadenopathy Chest: No chest wall abnormalities or deformities Heart: Regular rate and rhythm Lungs: Clear to auscultation bilaterally Abdomen: Soft, nontender, normal bowel sounds Extremities: No edema, cyanosis, or clubbing. 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 I did discuss the sniff test and phrenic nerve palsy in general with him. We also discussed a possible treatment for this being a diaphragm plication however he is getting an MRI his cervical spine I would like to have this evaluated prior to proceeding with the plication. I have seen occasionally in the past cervical disc disease being the cause for a phrenic nerve palsy and there is potential with surgical debulking and stabilization if that is the cause for the diaphragm to come back and function normally after that. With that in mind I will also [facility]. We will also facilitate his MRI which needs to be open and has been ordered but he has not heard yet. After the MRI he can follow up with me in the office at [facility] which is his preference. Coding Level of Care Code New Pt Level 5 (39185) Diagnoses Elevated hemidiaphragm J98.6 Time Spent (min) 65
[2023-08-21 10:29] VITALS: BP 130/70; PULSE 72; O2SAT 97; BMI 27.9
== END 2023-08-21 10:53 | disposition home or self-care (01) ==
PROVIDERS: PCP Physician Assistant Medical; Visit Provider Surgery
DX: J98.6 Disorders of diaphragm (principal)

== ENCOUNTER → 2023-08-21 09:42 | Outpatient (BNVA) | payer MEDICARE, MEDICAID, SELFPAY | PROVIDERS: Visit Provider Surgery | DX: J98.6 Disorders of diaphragm (principal) | CPT/HCPCS: 99202 ==

== ENCOUNTER 2023-09-11 09:52 | Outpatient (REF) | payer MEDICARE, MEDICAID, SELFPAY | END 2023-09-11 09:53 | disposition home or self-care (01) | LOC: HO.HAP 09:52 | PROVIDERS: Visit Provider Physician Assistant Medical | DX: Z46.1 Encounter for fitting and adjustment of hearing aid (principal); H90.3 Sensorineural hearing loss, bilateral | CPT/HCPCS: V5266 ==

== ENCOUNTER 2023-10-05 10:49 | Outpatient (REF) | payer MEDICARE, MEDICAID, SELFPAY | END 2023-10-05 10:50 | disposition home or self-care (01) | LOC: HO.HAP 10:49 | PROVIDERS: Visit Provider Physician Assistant Medical | DX: Z13.89 Encounter for screening for other disorder (principal) ==

== ENCOUNTER 2023-10-13 09:56 | Outpatient (REF) | payer MEDICARE, MEDICAID, SELFPAY ==
[2023-10-13 14:30] LABS: MANUAL DIFF FLAG NO
[2023-10-13 14:40] LABS: Basophils Absolute Auto 0.1 X10*3/uL (0.0-0.2); Eosinophils Absolute Auto 0.1 X10*3/uL (0.0-0.4); Eosinophils Percent Auto 1.3 % (0-4); Hematocrit 42.4 % (42.0-52.0); Imm Gran Abs Auto 0.02 X10*3/uL (0.00-0.03); Imm Gran Pct Auto 0.4 % (0.0-0.4); Lymphocytes Absolute Auto 0.7 X10*3/uL (1.2-4.9); Lymphocytes Percent Auto 13.3 % (20-40); Mean Corpuscular Hemoglobin 31.5 pg (27.0-33.0); Mean Corpuscular Volume 95.5 fL (80.0-98.0); Mean Platelet Volume 11.1 fL (9.4-12.4); Monocytes Absolute Auto 0.5 X10*3/uL (0.1-1.2); Monocytes Percent Auto 9.1 % (2-11); Neutrophils Absolute Auto 3.9 x10*3/uL (2.0-8.3); Neutrophils Percent Auto 74.9 % (45-73); Platelet Count 256 X10*3/uL (160-400); Red Blood Count 4.44 X10*6/uL (4.60-5.80); Red Cell Distribution Width 12.6 % (11.0-16.0); White Blood Count 5.3 X10*3/uL (4.8-10.8)
== END 2023-10-13 09:57 | disposition home or self-care (01) ==
LOC: HO.WFDLDS 09:56
PROVIDERS: PCP Physician Assistant Medical; Visit Provider Nurse Practitioner Family
DX: Z91.09 Other allergy status, other than to drugs and biological substances (principal); J98.6 Disorders of diaphragm; R06.09 Other forms of dyspnea; M54.2 Cervicalgia
CPT/HCPCS: 36415; 82785; 85025; 86003; 99212

== ENCOUNTER 2023-10-13 09:56 | Outpatient (AMB) | payer MEDICARE, MEDICAID, SELFPAY ==
[2023-10-13 10:09] VITALS: BP 136/70; PULSE 75; O2SAT 98; BMI 27.9
--- NOTE | 2023-10-13 10:09 | MHC.OFFVIS ---
Intake Vital Signs 10/13/23 10:09 Height 5 ft 7 in Weight 178 lb BMI 27.9 BP 136/70 Blood Pressure Location Lt brachial Position Sitting Pulse 75 Pulse Source Pulse Oximeter Pulse Oximetry (%) 98 Oxygen Delivery Method Room Air Intake Visit Reasons: Abnormal CT Chest [facility] First Required: No Seaweed Harvester: Seaweed Harvester offered & declined Accompanied by: Self / Same As Patient Allergies carisoprodol [From SOMA] Allergy (Severe, Verified 10/13/23 10:15) THROAT SWELLING methotrexate [METHOTREXATE] Allergy (Severe, Verified 10/13/23 10:15) SEVERE COUGH, cough monosodium glutamate [MSG] Allergy (Severe, Verified 10/13/23 10:15) MIGRAINES Benadryl Allergy (Unknown, Uncoded 10/13/23 10:15) throat swelling tbhq Adverse Reaction (Severe, Uncoded 10/13/23 10:15) migraines Medication List - Last Reconciled 10/13/23 by Carola Carroll LPN albuterol sulfate 90 mcg/actuation 2 puffs inhalation Q4-6H PRN etanercept (Enbrel SureClick) 1 syringe subcut QWEEK fluticasone furoate-vilanterol 100-25 mcg/dose (Breo Ellipta) 1 inh inhalation DAILY levothyroxine 1 tab PO DAILY omeprazole 1 cap PO DAILY oxycodone 1 tab PO QID PRN sumatriptan succinate 1 tab PO DIRECTED HPI Abnormal CT Chest HPI Details Emiliano is a pleasant 63 year old male, never smoker, with underlying CAD and anxiety. He was initially referred for new findings of elevated left hemidiaphragm with associated dyspnea on moderate exertion. 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 He denies any cervical or thoracic surgeries. He had a SNIFF test which revealed immobilization of left hemidiaphragm. At the last visit he was started on Breo with good effect. Denies any respiratory symptoms at this time. [facility]LY [facility] Medical History Tubular adenoma of colon Nocturia more than twice per night Back pain Psoriatic arthritis Spinal stenosis DDD (degenerative disc disease) Hypothyroidism GERD (gastroesophageal reflux disease) Hx of migraines History of asbestos exposure Elevated cholesterol Surgical History History of lumbar discectomy History of colonoscopy History of esophagogastroduodenoscopy (EGD) History of cholecystectomy History of right inguinal hernia repair History of left inguinal hernia repair S/P scrotal varicocelectomy Family History Brother Myocardial infarction Diabetes Mother Myocardial infarction Father No problems noted. Social History (Updated 10/13/23 @ 10:17 by Carola Carroll LPN) Are you a primary rn care transition to a significant other at home: No Do you presently have visiting nurse or other home services: No Patient Tobacco Use Status: Never used Tobacco Review of Systems Const Denies chills, Denies excessive sweating, Denies fever(s), Denies headache(s) and Denies night sweats Eyes Denies dry eyes, Denies irritation and Denies itchy eyes ENT Reports Normal hearing present, Denies headache(s), Denies nasal congestion, Denies nasal discharge, Denies post nasal drip and Denies sore throat Card Denies chest pain, Denies chest pain at rest, Denies chest pain with activity, Denies claudication, Denies leg edema, Denies dyspnea, Denies dyspnea on exertion, Denies orthopnea and Denies paroxysmal nocturnal dyspnea Resp Denies chest congestion, Denies cough, Denies excessive phlegm production, Denies pain on inspiration, Denies pain with cough, Denies dyspnea, Denies dyspnea on exertion, Denies stridor and Denies wheezing Musc Denies myalgias Neuro Reports Normal hearing present and Denies headache(s) Endo Denies excessive sweating Bebeto/Lymph Denies lymphadenopathy Aller/Immun Denies itchy eyes, Denies seasonal rhinorrhea and Denies wheezing Physical Exam Vital Signs: Last Vital Signs Pulse 75 10/13/23 10:09 BP 136/70 10/13/23 10:09 Pulse Ox 98 10/13/23 10:09 Oxygen Delivery Method Room Air 10/13/23 10:09 BMI result Body Mass Index 27.9 Const General: cooperative, healthy appearing, comfortable, no acute distress, well developed and alert Orientation/consciousness: patient oriented x3 Limitations: no limitations HEENT Head: Yes normal to inspection, Yes normocephalic and Yes atraumatic Ears: hearing grossly normal bilaterally and external ears normal Eyes General: appearance normal, both eyes and all related structures Eyelids: Yes eyelids normal Sclerae: sclerae normal EOM: EOMs intact bilaterally Neck Neck: Yes normal visual inspection and Yes no lymphadenopathy Lymphatic: no lymphadenopathy noted Chest Chest palpation & inspection: normal inspection of the chest Resp Other: diminished in left lower base Effort & Inspection: normal respiratory effort, able to speak in complete sentences, no audible wheezes, no cough, no stridor, not tachypneic, no tripod positioning and no use of accessory muscles Cardio Jugular venous distension: no JVD Rate: regular rate Rhythm: regular rhythm Skin Other: warm, dry General skin exam: no rashes or lesions noted Neuro General: patient oriented x3 Cranial nerves: Yes Normal hearing present Cognition (Neuro): normal cognition Gait exam (Neuro): Normal gait present Extrem General: Yes normal to inspection, Yes capillary refill normal, Yes no clubbing, cyanosis or edema and Yes no pedal edema Psych Appearance: grossly normal and well kempt Speech and movement: Normal speech and movement present and Clear speech present Affect: normal affect Attitude: cooperative Thought process: Normal thought process present Thought content: Normal thought content present Insight: Good insight present (Psych) Judgement: Good judgement present (Psych) Assessment & Plan Assessment & Plan (1) Elevated hemidiaphragm: Comment: (Immobile left hemidiaphragm which is mildly elevated on Sniff test 07/10/23) Code(s): J98.6 - Disorders of diaphragm (2) Dyspnea on exertion: Comment: (06/22/23 PFT = FVC: 52%, FEV1 55%, FEV1/FVC 83%, TLC 54%, DLCO 81%) Code(s): R06.09 - Other forms of dyspnea (3) Cervicalgia: Code(s): M54.2 - Cervicalgia Plan Emiliano reports improvements using Breo, will continue this. He was evaluated by Dr. Valadez,thoracic surgery, who discussed possible diaphragm plication but suggested he proceed with evaluation for his cervicalgia. He stated that his cervical disc disease could be the cause for phrenic nerve palsy with the potential for surgical debulking and stabilization which could restore function of hemidiaphragm. Encouraged him to attempt MRI, as he stated he was unable to complete due to claustrophobia. All questions were answered and patient is in agreement of plan. Will follow up in 6 months or sooner if needed. Orders: Orders Rast Allergen 10/13/23 Z91.09 - Other allergy status, other than to drugs and biological substances Complete Blood Count Auto Diff 10/13/23 Z91.09 - Other allergy status, other than to drugs and biological substances Medications: New fluticasone furoate-vilanterol 200-25 mcg/dose (Breo Ellipta) 1 inh inhalation DAILY 60 ea 6RF Coding Level of Care Code Est Pt Level 4 (37389) Diagnoses Elevated hemidiaphragm J98.6 Dyspnea on exertion R06.09 Cervicalgia M54.2
== END 2023-10-13 10:41 | disposition home or self-care (01) ==
PROVIDERS: PCP Physician Assistant Medical; Visit Provider Nurse Practitioner Family
DX: J98.6 Disorders of diaphragm (principal); R06.09 Other forms of dyspnea; M54.2 Cervicalgia
CPT/HCPCS: 99214

== ENCOUNTER 2023-10-14 14:11 | Outpatient (REF) | payer MEDICARE, MEDICAID, SELFPAY | END 2023-10-14 14:12 | disposition home or self-care (01) | LOC: HO.HAP 14:11 | PROVIDERS: Visit Provider Physician Assistant Medical | DX: Z13.89 Encounter for screening for other disorder (principal) ==

== ENCOUNTER 2023-10-21 11:59 | Outpatient (REF) | payer MEDICARE, MEDICAID, SELFPAY | END 2023-10-21 12:00 | disposition home or self-care (01) | LOC: HO.HAP 11:59 | PROVIDERS: Visit Provider Physician Assistant Medical | DX: Z13.89 Encounter for screening for other disorder (principal) ==

== ENCOUNTER 2023-10-23 12:53 | Outpatient (REF) | payer MEDICARE, MEDICAID, SELFPAY | END 2023-10-23 12:54 | disposition home or self-care (01) | LOC: HO.SH 12:53 | PROVIDERS: Visit Provider Physician Assistant | DX: Z01.118 Encounter for examination of ears and hearing with other abnormal findings (principal); H90.3 Sensorineural hearing loss, bilateral | CPT/HCPCS: 92557; 92567 ==

== ENCOUNTER 2023-12-14 09:42 | Outpatient (REF) | payer MEDICARE, MEDICAID, SELFPAY | END 2023-12-14 09:43 | disposition home or self-care (01) | LOC: HO.HAP 09:42 | PROVIDERS: Visit Provider Physician Assistant Medical | DX: Z46.1 Encounter for fitting and adjustment of hearing aid (principal); H90.3 Sensorineural hearing loss, bilateral | CPT/HCPCS: V5266 ==

== ENCOUNTER 2024-01-20 09:48 | Outpatient (AMB) | payer MEDICARE, MEDICAID, SELFPAY ==
--- NOTE | 2024-01-20 09:49 | A.OFFVIS_ITS ---
Intake Vital Signs 3 01/20/24 09:50 Height 5 ft 7 in Weight 178 lb BMI 27.9 BP 150/88 H Blood Pressure Location Lt brachial Position Sitting Respiration 12 Pulse 97 Pulse Source Pulse Oximeter Pulse Oximetry (%) 98 Oxygen Delivery Method Room Air Intake Visit Reasons: MRI of Cervical Spine Results Allergies carisoprodol [From SOMA] Allergy (Severe, Verified 01/20/24 09:52) THROAT SWELLING methotrexate [METHOTREXATE] Allergy (Severe, Verified 01/20/24 09:52) SEVERE COUGH, cough monosodium glutamate [MSG] Allergy (Severe, Verified 01/20/24 09:52) MIGRAINES Benadryl Allergy (Unknown, Uncoded 01/20/24 09:52) throat swelling tbhq Adverse Reaction (Severe, Uncoded 01/20/24 09:52) migraines Medication List - Last Reconciled 01/20/24 by María Nielsen LPN albuterol sulfate 90 mcg/actuation 2 puffs inhalation Q4-6H PRN etanercept (Enbrel SureClick) 1 syringe subcut QWEEK fluticasone furoate-vilanterol 200-25 mcg/dose (Breo Ellipta) 1 inh inhalation DAILY levothyroxine 1 tab PO DAILY omeprazole 1 cap PO DAILY oxycodone 1 tab PO QID PRN sumatriptan succinate 1 tab PO DIRECTED HPI MRI of Cervical Spine Results 2 HPI0 Details 63-year-old male who presents today to t he office for a review of MRI scan result. He also reports neck pain. 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 He has been experiencing difficulty breathing. He did have some workups, and a chest x-ray was done, which showed an elevated left hemidiaphragm. He then had a sniff test done on 07/10/2023, which revealed immobilization of the left hemidiaphragm. He has been using oxycodone for pain management. His main concern at this time is the dyspnea. He denies significant neck pain. He is interested in knowing if the foraminal stenoses in his neck could be a cause for his diaphragmatic paralysis. [facility] Medical History Tubular adenoma of colon Nocturia more than twice per night Back pain Psoriatic arthritis Spinal stenosis DDD (degenerative disc disease) Hypothyroidism GERD (gastroesophageal reflux disease) Hx of migraines History of asbestos exposure Elevated cholesterol Surgical History History of lumbar discectomy History of colonoscopy History of esophagogastroduodenoscopy (EGD) History of cholecystectomy History of right inguinal hernia repair History of left inguinal hernia repair S/P scrotal varicocelectomy Family History Brother Myocardial infarction Diabetes Mother Myocardial infarction Father No problems noted. Social History (Updated 10/13/23 @ 10:17 by Carola Carroll LPN) Are you a primary animal care provider to a significant other at home: No Do you presently have visiting nurse or other home services: No Patient Tobacco Use Status: Never used Tobacco Review of Systems Const All systems reviewed & are unremarkable except as noted in HPI and below Physical Exam Vital Signs: Last Vital Signs Pulse 97 01/20/24 09:50 Resp 12 01/20/24 09:50 BP 150/88 H 01/20/24 09:50 Pulse Ox 98 01/20/24 09:50 Oxygen Delivery Method Room Air 01/20/24 09:50 BMI result Body Mass Index 27.9 General: Appears afebrile. Alert and oriented. Mood and affect appropriate. Follows and participates in conversation appropriately. Respiratory effort is unlabored. Able to transition from sit to stand unassisted. Ambulates with bilaterally normal heel strike and toe off. 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 Madison in Neurology for consideration of a phrenic nerve conduction study, in setting of previous hernia repair surgery close to the diaphragm (according to the patient) with subsequent left hemidiaphragmatic paralysis. I had a discussion with Dr. Mendez, and we agreed that his cervical foraminal stenosis is unlikely to be a source of phrenic nerve paralysis. Scribed for Dr. Hester by Danny Nielson, medical billing clerk, on 01/20/2024. I, Dr. Hester, have personally reviewed and agree with the information entered by the scribe. Coding Level of Care Code Est Pt Level 3 (72499) Diagnoses Disorder of phrenic nerve G58.8
[2024-01-20 09:50] VITALS: BP 150/88; PULSE 97; RESP 12; O2SAT 98; BMI 27.9
== END 2024-01-20 10:37 | disposition home or self-care (01) ==
PROVIDERS: PCP Physician Assistant Medical; Visit Provider Internal Medicine
DX: G58.8 Other specified mononeuropathies (principal)
CPT/HCPCS: 99213

== ENCOUNTER → 2024-01-20 09:48 | Outpatient (BNVA) | payer MEDICARE, MEDICAID, SELFPAY | PROVIDERS: PCP Physician Assistant Medical; Visit Provider Internal Medicine | DX: G58.8 Other specified mononeuropathies (principal) | CPT/HCPCS: 99212 ==

== ENCOUNTER 2024-02-11 07:44 | Outpatient (REF) | payer MEDICARE, MEDICAID, SELFPAY ==
--- NOTE | 2024-02-11 07:57 | EMG_ITS ---
Bilateral phrenic nerve conduction studies were performed. Both sites revealed somewhat reduced amplitude and distorted waveform. This might suggest bilateral phrenic nerve pathology. Clinical correlation is recommended. If there is no history of focal left-sided injury or pathology, evaluation for generalized neuropathy should be considered. MD DAMIEN Lux/MATI / [id number]
== END 2024-02-11 07:45 | disposition home or self-care (01) ==
LOC: HO.NEURO 07:44
PROVIDERS: Visit Provider Internal Medicine
DX: J98.6 Disorders of diaphragm (principal); G58.8 Other specified mononeuropathies
CPT/HCPCS: 95907

== ENCOUNTER 2024-02-22 10:41 | Outpatient (AMB) | payer MEDICARE, MEDICAID, SELFPAY ==
--- NOTE | 2024-02-22 10:48 | MHC.OFFVIS ---
Vital Signs 02/22/24 10:49 Height 5 ft 7 in Weight 178 lb BMI 27.9 BP 146/73 H Blood Pressure Location Lt brachial Position Sitting Respiration 12 Pulse 81 Pulse Source Pulse Oximeter Pulse Oximetry (%) 96 Oxygen Delivery Method Room Air Intake Visit Reasons: FOLLOW UP AFTER DIAGNOSTIC TESTING Allergies carisoprodol [From SOMA] Allergy (Severe, Verified 02/22/24 10:51) THROAT SWELLING methotrexate [METHOTREXATE] Allergy (Severe, Verified 02/22/24 10:51) SEVERE COUGH, cough monosodium glutamate [MSG] Allergy (Severe, Verified 02/22/24 10:51) MIGRAINES Benadryl Allergy (Unknown, Uncoded 02/22/24 10:51) throat swelling tbhq Adverse Reaction (Severe, Uncoded 02/22/24 10:51) migraines Medication List - Last Reconciled 02/22/24 by María Nielsen LPN albuterol sulfate 90 mcg/actuation 2 puffs inhalation Q4-6H PRN etanercept (Enbrel SureClick) 1 syringe subcut QWEEK fluticasone furoate-vilanterol 200-25 mcg/dose (Breo Ellipta) 1 inh inhalation DAILY levothyroxine 1 tab PO DAILY omeprazole 1 cap PO DAILY oxycodone 1 tab PO QID PRN sumatriptan succinate 1 tab PO DIRECTED HPI HPI FOLLOW UP AFTER DIAGNOSTIC TESTING: Details: 63-year-old male who presents today to the office for a follow up after diagnostic testing. The patient has completed nerve conduction study of the phrenic nerve, that was noted to be abnormal. He is feeling anxious today and is concerned that he would end up requiring mechanical ventilation over the supervisor intermediates without adequate treatment of his condition. We reviewed the result in the office. He was concerned about the lack of detail on the report. He is interested in phrenic nerve pacers as a treatment option. FOR[facility]LY [facility] Medical History Tubular adenoma of colon Nocturia more than twice per night Back pain Psoriatic arthritis Spinal stenosis DDD (degenerative disc disease) Hypothyroidism GERD (gastroesophageal reflux disease) Hx of migraines History of asbestos exposure Elevated cholesterol Surgical History History of lumbar discectomy History of colonoscopy History of esophagogastroduodenoscopy (EGD) History of cholecystectomy History of right inguinal hernia repair History of left inguinal hernia repair S/P scrotal varicocelectomy Family History Brother Myocardial infarction Diabetes Mother Myocardial infarction Father No problems noted. Social History (Updated 10/13/23 @ 10:17 by Carola Carroll LPN) Are you a primary md do resident urgent care to a significant other at home: No Do you presently have visiting nurse or other home services: No Patient Tobacco Use Status: Never used Tobacco Review of Systems Const All systems reviewed & are unremarkable except as noted in HPI and below Physical Exam Vital Signs: Last Vital Signs Pulse 81 02/22/24 10:49 Resp 12 02/22/24 10:49 BP 146/73 H 02/22/24 10:49 Pulse Ox 96 02/22/24 10:49 Oxygen Delivery Method Room Air 02/22/24 10:49 BMI result Body Mass Index 27.9 General: Appears afebrile. Alert and oriented. Mood and affect appropriate. Follows and participates in conversation appropriately. Respiratory effort is unlabored. Able to transition from sit to stand unassisted. Ambulates with bilaterally normal heel strike and toe off. Results Reviewed Results Reviewed: 02/11/24: NE nerve conduction velocity Bilateral phrenic nerve conduction studies were performed. Both sites revealed somewhat reduced amplitude and distorted waveform. This might suggest bilateral phrenic nerve pathology. Clinical correlation is recommended. If there is no history of focal left-sided injury or pathology, evaluation for generalized neuropathy should be considered. 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 I recommended the patient reach out to the [facility] to check if he is a candidate for phrenic nerve pacer placement. Patient expressed understanding. Follow-up as needed. Scribed for Dr. Hester by Danny Nielson, expert medical writer, on 02/22/2024. I, Dr. Hester, have personally reviewed and agree with the information entered by the scribe.
[2024-02-22 10:49] VITALS: BP 146/73; PULSE 81; RESP 12; O2SAT 96; BMI 27.9
== END 2024-02-22 11:48 | disposition home or self-care (01) ==
PROVIDERS: PCP Internal Medicine; Visit Provider Internal Medicine
DX: G58.8 Other specified mononeuropathies (principal)
CPT/HCPCS: 99213

== ENCOUNTER → 2024-02-22 10:41 | Outpatient (BNVA) | payer MEDICARE, MEDICAID, SELFPAY | PROVIDERS: Visit Provider Internal Medicine | DX: G58.8 Other specified mononeuropathies (principal) | CPT/HCPCS: 99212 ==

== ENCOUNTER 2024-04-04 11:17 | Outpatient (REF) | payer MEDICARE, MEDICAID, SELFPAY | END 2024-04-04 11:18 | disposition home or self-care (01) | LOC: HO.HAP 11:17 | PROVIDERS: Visit Provider Internal Medicine | DX: Z46.2 Encounter for fitting and adjustment of other devices related to nervous system and special senses (principal) | CPT/HCPCS: V5266 ==

== ENCOUNTER 2024-04-13 09:23 | Outpatient (AMB) | payer MEDICARE, MEDICAID, SELFPAY ==
--- NOTE | 2024-04-13 09:28 | A.OFFVIS_ITS ---
Vital Signs 04/13/24 09:29 Height 5 ft 7 in Weight 174 lb 6 oz BMI 27.3 BP 118/68 Blood Pressure Location Rt brachial Position Sitting Pulse 74 Pulse Source Pulse Oximeter Pulse Oximetry (%) 98 Oxygen Delivery Method Room Air Intake Visit Reasons: abnormal chest xray : 6 month f/u Allergies carisoprodol [From SOMA] Allergy (Severe, Verified 04/13/24 09:33) THROAT SWELLING methotrexate [METHOTREXATE] Allergy (Severe, Verified 04/13/24 09:33) SEVERE COUGH, cough monosodium glutamate [MSG] Allergy (Severe, Verified 04/13/24 09:33) MIGRAINES Benadryl Allergy (Unknown, Uncoded 04/13/24 09:33) throat swelling tbhq Adverse Reaction (Severe, Uncoded 04/13/24 09:33) migraines HPI HPI abnormal chest xray : 6 month f/u : Details: Emiliano is a pleasant 64 year old male, never smoker, with underlying elevated left hemidiaphragm, CAD and anxiety. 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 SNIFF test 07/15 revealed immobilization of left hemidiaphragm. Referred to Dr Valadez to discuss possible surgical debulking and stabilization which could restore function of hemidiaphragm but he wanted to ensure the cervical stenosis was not a contributing factor. He was then sent for MRI by Dr. Hester, pain management, however patient could not tolerate due to claustrophobia. Patient ultimately had MRI performed and per JACOB, Dr. Hester did not feel the cervical stenosis was related. 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 He has upcoming appointment scheduled [facility] on Thursday for further evaluation. At this time he continues to report dyspnea moderate exertion, unchanged with Breo. He reports infrequent use of albuterol home upon improvement in symptoms when using. Denies any cough, wheezing, chest tightness. [facility] Medical History Tubular adenoma of colon Nocturia more than twice per night Back pain Psoriatic arthritis Spinal stenosis DDD (degenerative disc disease) Hypothyroidism GERD (gastroesophageal reflux disease) Hx of migraines History of asbestos exposure Elevated cholesterol Surgical History History of lumbar discectomy History of colonoscopy History of esophagogastroduodenoscopy (EGD) History of cholecystectomy History of right inguinal hernia repair History of left inguinal hernia repair S/P scrotal varicocelectomy Family History Brother Myocardial infarction Diabetes Mother Myocardial infarction Father No problems noted. Social History Are you a primary healthcare sales representative to a significant other at home: No Do you presently have visiting nurse or other home services: No Patient Tobacco Use Status: Never used Tobacco Review of Systems Const Denies chills, Denies excessive sweating, Denies fever(s), Denies headache(s) and Denies night sweats Eyes Denies dry eyes, Denies irritation and Denies itchy eyes ENT Reports Normal hearing present, Denies headache(s), Denies nasal congestion, Denies nasal discharge, Denies post nasal drip and Denies sore throat Card Denies chest pain, Denies chest pain at rest, Denies chest pain with activity, Denies claudication, Denies leg edema, Denies orthopnea and Denies paroxysmal nocturnal dyspnea Resp Denies chest congestion, Denies cough, Denies excessive phlegm production, Denies pain on inspiration, Denies pain with cough, Denies stridor and Denies wheezing Musc Denies myalgias Neuro Reports Normal hearing present and Denies headache(s) Endo Denies excessive sweating Bebeto/Lymph Denies lymphadenopathy Aller/Immun Denies itchy eyes, Denies seasonal rhinorrhea and Denies wheezing Physical Exam Vital Signs: Last Vital Signs Pulse 74 04/13/24 09:29 BP 118/68 04/13/24 09:29 Pulse Ox 98 04/13/24 09:29 Oxygen Delivery Method Room Air 04/13/24 09:29 BMI result Body Mass Index 27.3 Const General: cooperative, healthy appearing, comfortable, no acute distress, well developed and alert Orientation/consciousness: patient oriented x3 Limitations: no limitations HEENT Head: Yes normal to inspection, Yes normocephalic and Yes atraumatic Ears: hearing grossly normal bilaterally and external ears normal Eyes General: appearance normal, both eyes and all related structures Eyelids: Yes eyelids normal Sclerae: sclerae normal EOM: EOMs intact bilaterally Neck Neck: Yes normal visual inspection and Yes no lymphadenopathy Lymphatic: no lymphadenopathy noted Chest Chest palpation & inspection: normal inspection of the chest Resp Other: diminished in left lower base Effort & Inspection: normal respiratory effort, able to speak in complete sentences, no audible wheezes, no cough, no stridor, not tachypneic, no tripod positioning and no use of accessory muscles Cardio Jugular venous distension: no JVD Rate: regular rate Rhythm: regular rhythm Skin Other: warm, dry Neuro General: patient oriented x3 Cranial nerves: Yes Normal hearing present Cognition (Neuro): normal cognition Gait exam (Neuro): Normal gait present Psych Appearance: grossly normal and well kempt Speech and movement: Normal speech and movement present and Clear speech present Affect: normal affect Attitude: cooperative Thought process: Normal thought process present Thought content: Normal thought content present Insight: Good insight present (Psych) Judgement: Good judgement present (Psych) Results Reviewed Results Reviewed: EMG : Both sites revealed somewhat reduced amplitude and distorted waveform. This might suggest bilateral phrenic nerve pathology. Clinical correlation is recommended. If there is no history of focal left-sided injury or pathology, evaluation for generalized neuropathy should be considered. 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 Given PFT findings, SNIFF test and EMG, further work up is warranted. He has upcoming evaluation with [facility] for a more thorough workup. Will follow-up with patient to review input from consultation. All questions were answered and patient is in agreement of plan. Will follow up in 3 months or sooner if needed. Coding Level of Care Code Est Pt Level 4 (03054) Diagnoses Elevated hemidiaphragm J98.6 Dyspnea on exertion R06.09 Disorder of phrenic nerve G58.8
[2024-04-13 09:29] VITALS: BP 118/68; PULSE 74; O2SAT 98; BMI 27.3
== END 2024-04-13 10:04 | disposition home or self-care (01) ==
PROVIDERS: PCP Physician Assistant Medical; Visit Provider Nurse Practitioner Family
DX: J98.6 Disorders of diaphragm (principal); R06.09 Other forms of dyspnea; G58.8 Other specified mononeuropathies
CPT/HCPCS: 99214

== ENCOUNTER → 2024-04-13 09:23 | Outpatient (BNVA) | payer MEDICARE, MEDICAID, SELFPAY | PROVIDERS: PCP Physician Assistant Medical; Visit Provider Nurse Practitioner Family | DX: J98.6 Disorders of diaphragm (principal); R06.09 Other forms of dyspnea; G58.8 Other specified mononeuropathies | CPT/HCPCS: 99212 ==

== ENCOUNTER 2024-04-28 08:37 | Outpatient (REF) | payer MEDICARE, MEDICAID, SELFPAY | END 2024-04-28 08:38 | disposition home or self-care (01) | LOC: HO.SH 08:37 | PROVIDERS: Visit Provider Physician Assistant | DX: Z46.1 Encounter for fitting and adjustment of hearing aid (principal); H90.3 Sensorineural hearing loss, bilateral | CPT/HCPCS: 92593; 99499 ==

== ENCOUNTER 2024-07-28 13:44 | Outpatient (REF) | payer MEDICARE, MEDICAID, SELFPAY | END 2024-07-28 13:45 | disposition home or self-care (01) | LOC: HO.HAP 13:44 | PROVIDERS: Visit Provider Physician Assistant Medical | DX: Z46.1 Encounter for fitting and adjustment of hearing aid (principal); H90.3 Sensorineural hearing loss, bilateral | CPT/HCPCS: V5266 ==

== ENCOUNTER 2024-09-09 14:55 | Outpatient (AMB) | payer MEDICARE, MEDICAID, SELFPAY ==
[2024-09-09 14:56] VITALS: BP 124/68; PULSE 84; TEMP 36.8; O2SAT 98; BMI 27.6
--- NOTE | 2024-09-09 14:56 | AM.OFFWIN_ITS ---
Intake Vital Signs 09/09/24 14:56 Height 5 ft 7 in Weight 176 lb BMI 27.6 BP 124/68 Blood Pressure Location Lt brachial Position Sitting Pulse 84 Pulse Source Pulse Oximeter Temp 98.2 F Temp Source Oral Pulse Oximetry (%) 98 Oxygen Delivery Method Room Air Intake Visit Reasons: EP-left side jaw pain Intake Note: Pt is here today Lt side of jaw pain x5 days Patient Tobacco Use Status: Never used Tobacco Allergies carisoprodol [From SOMA] Allergy (Severe, Verified 09/09/24 14:57) THROAT SWELLING methotrexate [METHOTREXATE] Allergy (Severe, Verified 09/09/24 14:57) SEVERE COUGH, cough monosodium glutamate [MSG] Allergy (Severe, Verified 09/09/24 14:57) MIGRAINES Benadryl Allergy (Unknown, Uncoded 09/09/24 14:57) throat swelling tbhq Adverse Reaction (Severe, Uncoded 09/09/24 14:57) migraines HPI HPI Comments History of Present Illness Details 64 y/o male patient who presents to the walk in clinic with c/o left sided Jaw pain x 5 days. Denies any injury or trauma. Denies any headaches or dizziness. Reports pain with opening mouth, or chewing. Denies any dental or Gum pain. [facility] Medical History Tubular adenoma of colon Nocturia more than twice per night Back pain Psoriatic arthritis Spinal stenosis DDD (degenerative disc disease) Hypothyroidism GERD (gastroesophageal reflux disease) Hx of migraines History of asbestos exposure Elevated cholesterol Surgical History History of lumbar discectomy History of colonoscopy History of esophagogastroduodenoscopy (EGD) History of cholecystectomy History of right inguinal hernia repair History of left inguinal hernia repair S/P scrotal varicocelectomy Family History Brother Myocardial infarction Diabetes Mother Myocardial infarction Father No problems noted. Social History Are you a primary farm or ranch animal caretaker to a significant other at home: No Do you presently have visiting nurse or other home services: No Patient Tobacco Use Status: Never used Tobacco Review of Systems Const All systems reviewed & are unremarkable except as noted in HPI and below Physical Exam Vital Signs: Last Vital Signs Temp 98.2 F 09/09/24 14:56 Pulse 84 09/09/24 14:56 BP 124/68 09/09/24 14:56 Pulse Ox 98 09/09/24 14:56 Oxygen Delivery Method Room Air 09/09/24 14:56 BMI result Body Mass Index 27.6 Const General: cooperative, no acute distress and lethargic (Mild lethagic from Oxycodone. Takes Oxy chronically for back pain) Orientation/consciousness: patient oriented x3 and lethargic (Mild lethagic from Oxycodone. Takes Oxy chronically for back pain) HEENT Head: Yes normocephalic Ears: external ears normal and TM's normal bilaterally General nose exam: Normal nasal mucous membranes and turbinates present Face and sinus: Yes sinuses nontender Mouth: moist mucous membranes and other (Mild tenderness at left Jaw. Normal TMJ movement. No dislocation.) Teeth and gingiva: gingiva normal Throat: Yes uvula midline Neuro General: patient oriented x3, gait normal and moves all extremities Psych Speech and movement: Normal speech and movement present Assessment & Plan Assessment & Plan (1) Jaw pain: Code(s): R68.84 - Jaw pain Plan: NSAIDs for pain relief. Ordered Prednisone for few days. IceHot Advised to f/u with Dentist Coding Level of Care Code Est Pt Level 3 (61076) Diagnoses Jaw pain R68.84 Time Spent (min) 15
--- OUTSIDE RECORDS SUMMARY | 2024-09-09 14:56 | XMS_ITS | Continuity of Care Document ---
Author Organization [facility] Address [address] [place] [address]- Care Team Providers Care Hand Decorator Name Role Phone Duc Carpio Primary Care Physician [place] [facility] [place] - 04/04/20 [facility] [address] [place] [address]- [facility] Attending Physician: Shanice Renteria MD Admitting Physician: Shanice Renteria MD Referring Physician: Duc Carpio Allergies, Adverse Reactions, Alerts Substance Reaction Severity Status Soma Active Benedryl Allergy Sinus Activ e Immunizations Given and Recorded Vaccine Date Status Refusal Reason influenza virus vaccine, inactivated 1 07/19/15 Re corded Tetanus Toxoid 2 01/27/06 Recorded 1Location History: [address] [place] 2Location History: [address] [facility] Medications Cymbalta 60 mg oral enteric coated capsule 1 capsule = 60 mg, By Mouth, Daily, # 30 capsule, 0 Refills, Maintenance, 01/13/20 9:40:00 EST, EC Capsule, [facility] # [facility], 172.26, cm, 01/13/20 9:02:00 EST, Height Start Date: 01/13/20 Status: Ordered diazepam 5 mg oral tablet 5 mg, 1, tablet, By Mouth, Daily at bedtime, Refills 0, Maintenance, 07/01/18 12:13:41 EDT Start Date: 07/01/18 Status: Ordered Enbrel = 50 mg, Subcutaneous Infusion, 0 Refills, Maintenance, 07/01/18 12:12:05 EDT Start Date: 07/01/18 Status: Ordered ferrous sulfate 325 mg oral enteric coated tablet 325 mg, 1, tablet, By Mouth, Daily, # 30 tablet, Refills 0, Maintenance, 07/01/18 12:11:32 EDT Start Date: 07/01/18 Status: Ordered levothyroxine 125 mcg (0.125 mg) oral capsule 1 capsule = 125 mcg, By Mouth, Daily, 0 Refills, Maintenance, 03/02/20 10:53:00 EDT Start Date: 03/02/20 Status: Ordered omeprazole 20 mg oral delayed release tablet 1 tablet = 20 mg, By Mouth, Daily, 0 Refills, Maintenance, 07/01/18 12:12:53 EDT Start Date: 07/01/18 Status: Ordered oxyCODONE 5 mg oral capsule 1 capsule = 5 mg, By Mouth, Every 6 hours, PRN for pain, 0 Refills, Maintenance, 07/01/18 12:14:02 EDT, Capsule Start Date: 07/01/18 Status: Ordered SUMAtriptan 50 mg oral tablet 1 tablet = 50 mg, By Mouth, Daily, PRN for migraine headache, may repeat dose after 2 hours up to amaximum of 2, # 9 tablet, 0 Refills, Maintenance, 07/01/18 12:15:10 EDT, Tablet Start Date: 07/01/18 Status: Ordered Problem List Condition Effective Dates Status Health Status Inform ant Direct inguinal hernia(Confirmed) Active Abdominal hernia without obs truction or gangrene(Confirmed) Active Hyperlipidemia(Confirmed) Active Hypothyroidism(Confirmed) Active Erectile dysfunction(Confirmed) Active Lumbar disc disease(Confirmed) Active Migraines(Confirmed) Active L5 Radiculopathy(Confirmed) Active Spinal stenosis(Confirmed) Active Social History Social History Type Response Smoking Status Never smoker entered on: 07/13/18 Sex
--- OUTSIDE RECORDS SUMMARY | 2024-09-09 14:56 | XMS_ITS | Continuity of Care Document ---
Author Organization [facility] Address [address] [place] [address]- Care Team Providers Care Prop Attendant Name Role Phone Duc Carpio Primary Care Physician Encounter 05/05/23 - 05/12/23 [facility] [place] [address] [place] [address]- Attending Physician: Michelle Underwood Admitting Physician: Michelle Underwood Referring Physician: Michelle Underwood Allergies, Adverse Reactions, Alerts Substance Reaction Severity Status Soma Active Benedryl Allergy Sinus Activ e Immunizations Given and Recorded Vaccine Date Status Refusal Reason influenza virus vaccine, inactivated 1 07/19/15 Re corded Tetanus Toxoid 2 01/27/06 Recorded 1Location History: [address] [place] 2Location History: [address] [facility] Medications Cymbalta 60 mg oral enteric coated [...] Date: 07/01/18 Status: Ordered Problem List Condition Confirmation Course Effective Dates Status H ealth Status Informant Direct inguinal hernia Confirmed Active Abdominal hernia without obstruction or gangrene Confirmed Active Hyperlipidemia Confirmed Active Hypothyroidism Confirmed Active Erectile dysfunction Confirmed Active Lumbar disc disease Confirmed Active Migraines Confirmed Active L5 Radiculopathy Confirmed Active Spinal stenosis Confirmed Active Results Radiology Reports * Exam Date Time Procedure Performing Provider Status 05/05/23 9:[address] Chest W/O Contrast Jerman Juarez; Génesis (Verified) Notes: (CT Chest W/O Contrast) Reason For Exam: 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 Weight-based protocol was performed using automatic exposure control. CTDIvol Body: 11.16 mGy, DLP Body: 398 mGy*cm. COMPARISON: Chest x-ray performed on 04/22/2023 FINDINGS: The heart is normal in size. There is no pericardial effusion. There is no thoracic adenopathy by size criteria. No endobronchial lesions are seen. Consolidation with air bronchograms in the left lower lobe is present, likely representing collapse or scar. There is elevation of the left hemidiaphragm with thinning of the diaphragmatic musculature. No discrete defect is present. The visualized portions of the liver, spleen, pancreas, adrenal glands and kidneys have an unremarkable unenhanced appearance. The gallbladder is surgically absent. Scoliosis and degenerative change within the spine is identified. IMPRESSION: Thinning of the left hemidiaphragm with elevation and adjacent collapse or consolidation within theleft lower lobe. There is no evidence of a left apical mass. WSN: [id number] Ordering Physician: Michelle Gomez Dictated By: Jeniffer Sung MD Dictated Date/Time: 05/05/23 12:09 p Reviewed By: Jeniffer Sung MD Signed By: Jeniffer Sung MD Signed Date/Time: 05/05/23 12:09 pm Transcribed By: RAJESH Transcribed Date/Time: 05/05/23 12:06 pm Social History Social History Type Response Smoking Status Never smoker entered on: 07/13/18 Sex Patient Care team information Care Team Personnel Name: Duc Carpio Position: [facility] Outreach Member Role: PCP Address: Address: [facility] [address] [place] [address]- Care Team Related Persons Name: SANTHOSH LANCE Address: home [address] [place] [id number]
--- OUTSIDE RECORDS SUMMARY | 2024-09-09 14:56 | XMS_ITS | Patient Health Record ---
Author Organization [facility] Address [address] [place] [id number] Care Team Providers Care Hydro Mechanic Name Role Phone JENNIFER CHRISTIANSON Primary Care Provider Young Pena [phone] ALLERGIES Allergen (clinical drug ingredient) Drug/Non Drug Allergy documented on EMR Reaction Allergy Type Onset Date Status carisoprodol Soma Unknown Drug Allergy Acti ve diphenhydramine Benadryl Unknown Drug Allergy A ctive REASON FOR REFERRAL No Information MEDICATIONS Medication SIG (Take, Route, Frequency, Duration) Notes Start Date End Date Status oxyCODONE HCl Orally Active Levothyroxine Sodium 125 MCG 1 tablet in the morning on an empty stomach Orally Once a day Active Enbrel 50 MG/ML 1 ml Subcutaneous weekly Active Omeprazole 20 MG 1 capsule 30 minutes before morning meal Orally Once a day Active Imitrex as needed Active IMMUNIZATIONS Vaccine Route Administration Date Status Comme nts Influenza Unknown 08/23/2015 Administered Influenza Unknown 07/24/2020 Administered SOCIAL HISTORY Sex Assigned At : Social History Observation Description Sex Assigned At Unknown PROBLEMS Problem Type ICD Code Onset Dates Problem Status W/U Status Risk SNOMED Code Notes Problem GERD (gastroesophage al reflux disease) (K21.9) Active confirmed Gastroesophagea l reflux disease (411635223) Problem History of adenomatous polyp of colon (Z86.010) Active confirmed History of adenomatous polyp of colon (506757663) Problem Encounter for screening for malignant neoplasm of colon (Z12.11) Active confirmed Screening for malignant neoplasm of colon (109420445) PLAN OF TREATMENT Pending Test Test Name Order Date Pathology 03/06/2021 Future Test Test Name Order Date COLONOSCOPY 10/02/2015 UPPER GI ENDOSCOPY 02/12/2021 COLONOSCOPY 02/12/2021 Insurance Providers Payer Name Payer Address Payer Phone Subscriber Number Group Number Insured Name Patient Relationship to Insured Coverage Start Date Coverage End Date MEDICARE OF [place] [address] [place] [id number] PHIL LANCE Self - patient is the insured MEDICAID OF [facility] [address] [place] [phone] [id number] NATALIOPHIL Self - patient is the insured MEDICAL (GENERAL) HISTORY Medical History History ICD Code Colonoscopy 07-22-2010--1 sma ll tubular adenoma, mild diiverticulosis, small internal hemorrhoids Chronic back problems--on Oxycodone Hypothyroidism Hyperlipidemia Denies NH,DM,CVA,Lung disease,renal dise ase Psoriatic arthritis--Dr. Bose Negative colonoscopy in 12/2015 Migraines GERD Surgical History Surgery Date(Month/Year) 2 lower back operations--L4/L5 surgery on a left varicocele hernia-right inguinal and 2 on the left CCY
--- OUTSIDE RECORDS SUMMARY | 2024-09-09 14:56 | XMS_ITS | Continuity of Care Document ---
Author Organization [facility] Address [address] [place] [address]- Care Team Providers Care Machine Sizer Name Role Phone Duc Carpio Primary Care Physician Encounter [facility] [place] Date(s): 01/13/20 - 01/20/20 [facility] [address] [place] [address] [place] [facility] Attending Physician: Ulysses Weaver MD Admitting Physician: Ulysses Weaver MD Referring Physician: Duc Carpio Allergies, Adverse Reactions, Alerts Substance Reaction Severity Status Soma Active Benedryl Allergy Sinus Activ e Immunizations Given and Recorded Vaccine Date Status Refusal Reason influenza virus vaccine, inactivated 1 07/19/15 Re corded Tetanus Toxoid 2 01/27/06 Recorded 1Location History: [address] [place] 2Location History: [address] [place] Medications aspirin 81 mg oral enteric coated tablet 81, mg, 1, tablet, By Mouth, Daily, 0, 0, 12/28/08 14:10:09, Print TAMIR Number, [id number], Constant Indicator Start Date: 12/28/08 Status: Ordered Crestor 5 mg oral tablet 1 tablet = 5 mg, By Mouth, Daily, # 30 tablet, 0 Refills, Maintenance, 07/01/18 12:11:13 EDT, Tablet Start Date: 07/01/18 Status: Ordered Cymbalta 60 mg oral enteric coated capsule [...] 12:11:32 EDT Start Date: 07/01/18 Status: Ordered omeprazole 20 mg oral delayed [...] Active L5 Radiculopathy(Confirmed) Active Spinal stenosis(Confirmed) Active Vital Signs Most recent to oldest [Reference Range]: 1 Height 172.26 cm (01/13/20 9:02 AM) Weight 78 kg (01/13/20 9:02 AM) Body Mass Index [18.5-24.99] 26.29 *H* (01/13/20 9:02 AM) Social History Social History Type Response Smoking Status Never smoker entered on: 07/13/18 Sex
--- OUTSIDE RECORDS SUMMARY | 2024-09-09 14:56 | XMS_ITS | Continuity of Care Document ---
Author Organization [facility] Address [address] [place] [address]- Care Team Providers Care Water Taxi Boat Mate Name Role Phone Duc Carpio Primary Care Physician En[place] [facility] [place] Date(s): 03/05/20 - 03/15/20 [facility] [address] [address] [facility] Attending Physician: Herman Cruz Admitting Physician: Herman Cruz Referring Physician: AdmtrHerman Allergies, Adverse Reactions, Alerts Substance Reaction Severity Status Soma Active Benedryl Allergy Sinus Activ e Immunizations Given and Recorded Vaccine Date Status Refusal Reason influenza virus vaccine, inactivated 1 07/19/15 Re corded Tetanus Toxoid 2 01/27/06 Recorded 1Location History: [address] [place] 2Location History: [address] [facility] Medications Cymbalta 60 mg oral enteric coated [...]
--- OUTSIDE RECORDS SUMMARY | 2024-09-09 14:56 | XMS_ITS | Continuity of Care Document ---
Author Organization [facility] ter Address [address] [place] [address]- Care Team Providers Care Machinist Set Up Name Role Phone Ketan Hoffmann MD Primary Care Physician Encounter [facility] [place] Date(s): 11/22/19 - 11/22/[address] [address]- [facility] Attending Physician: Not on Staff, Attending MD Allergies, Adverse Reactions, Alerts Substance Reaction Severity Status Soma Active Benedryl Allergy Sinus Activ e Immunizations Given and Recorded Vaccine Date Status Refusal Reason influenza virus vaccine, inactivated 1 07/19/15 Re corded Tetanus Toxoid 2 01/27/06 Recorded 1Location History: [address] [place] 2Location History: [address] [place] Medications aspirin 81 mg oral enteric coated tablet 81, mg, 1, tablet, By Mouth, Daily, 0, 0, 12/28/08 14:10:09, Print TAMIR Number, [id number], Constant Indicator Start Date: 12/28/08 Status: Ordered Crestor 5 mg oral tablet 1 tablet = 5 mg, By Mouth, Daily, # 30 tablet, 0 Refills, Maintenance, 07/01/18 12:11:13 EDT, Tablet Start Date: 07/01/18 Status: Ordered diazepam 5 mg oral tablet [...]
--- OUTSIDE RECORDS SUMMARY | 2024-09-09 14:56 | XMS_ITS | Continuity of Care Document ---
Author Organization [facility] Address [address] [place] [address]- Care Team Providers Care Wire Bender Hand Name Role Phone Duc Carpio Primary Care Physician Encounter [facility] [place] Date(s): 03/05/20 - 03/12/20 [facility] [address] [place] [address] [facility] Attending Physician: Shanice Renteria MD Admitting Physician: Shanice Renteria MD Referring Physician: Duc Carpio Allergies, Adverse Reactions, Alerts Substance Reaction Severity Status Soma Active Benedryl Allergy Sinus Activ e Immunizations Given and Recorded Vaccine Date Status Refusal Reason influenza virus vaccine, inactivated 1 07/19/15 Re corded Tetanus Toxoid 2 01/27/06 Recorded 1Location History: [address] [place] 2Location History: [address] [facility] Medications Cymbalta 60 mg oral enteric coated [...]
--- OUTSIDE RECORDS SUMMARY | 2024-09-09 14:56 | XMS_ITS | Continuity of Care Document ---
Author Organization [facility] Address [address] [place] [address]- Care Team Providers Care Fence Machine Operator Name Role Phone Duc Carpio Primary Care Physician [place] [facility] [place] 02/[place] 04/04/20 [facility] [address] [place] [address] [facility] Attending Physician: Shanice Renteria MD Admitting Physician: Shanice Renteria MD Referring Physician: Duc Carpio Allergies, Adverse Reactions, Alerts Substance Reaction Severity Status Soma Active Benedryl Allergy Sinus Activ e Immunizations Given and Recorded Vaccine Date Status Refusal Reason influenza virus vaccine, inactivated 1 07/19/15 Re corded Tetanus Toxoid 2 01/27/06 Recorded 1Location History: [address] [place] 2Location History: [address] [facility] Medications Cymbalta 60 mg oral enteric [...] oldest [Reference Range]: 1 Height 172.26 cm (03/05/20 10:32 AM) Weight 78 kg (03/05/20 10:32 AM) Social History Social History Type Response Smoking Status Never smoker entered on: 07/13/18 Sex
--- OUTSIDE RECORDS SUMMARY | 2024-09-09 14:56 | XMS_ITS | Continuity of Care Document ---
Author Organization [facility] ter Address [address] [place] [address]- Care Team Providers Care Shared Services Manager Name Role Phone Ketan Hoffmann MD Primary Care Physician [phone] Encounter [facility] Date(s): 11/22/19 - 11/22/[address] [address]- [facility] Attending Physician: Duc Carpio Allergies, Adverse Reactions, Alerts Substance Reaction Severity Status Soma Active Benedryl Allergy Sinus Activ e Immunizations Given and Recorded Vaccine Date Status Refusal Reason influenza virus vaccine, inactivated 1 07/19/15 Re corded Tetanus Toxoid 2 01/27/06 Recorded 1Location History: [address] [place] 2Location History: [address] [place] Medications aspirin 81 mg oral enteric coated tablet 81, mg, 1, tablet, By Mouth, Daily, 0, 0, 12/28/08 14:10:09, Print TAMIR Number, [id number], Constant Indicator Start Date: 12/28/08 Status: Ordered [...]
--- OUTSIDE RECORDS SUMMARY | 2024-09-09 14:56 | XMS_ITS | Continuity of Care Document ---
Author Organization [facility] Address [address] [place] [address]- Care Team Providers Care Operations Leader Name Role Phone Duc Carpio Primary Care Physician En[place] [facility] [place] Date(s): 01/13/20 - 03/28/20 [facility] [address] [place] [address]- [facility] Attending Physician: Ulysses Weaver MD Admitting Physician: Ulysses Weaver MD Referring Physician: Duc Carpio Allergies, Adverse Reactions, Alerts Substance Reaction Severity Status Soma Active Benedryl Allergy Sinus Activ e Immunizations Given and Recorded Vaccine Date Status Refusal Reason influenza virus vaccine, inactivated 1 07/19/15 Re corded Tetanus Toxoid 2 01/27/06 Recorded 1Location History: [address] [place] 2Location History: [address] [facility] Medications Cymbalta 60 mg oral enteric coated [...]
--- OUTSIDE RECORDS SUMMARY | 2024-09-09 14:56 | XMS_ITS | Continuity of Care Document ---
Author Organization [facility] Address [address] [place] [address]- Care Team Providers Care Cocoa Butter Filter Operator Name Role Phone Duc Carpio Primary Care Physician [place] [facility] [place] 02/27/20 - 03/08/20 [facility] [address] [place] [address]- [facility] Attending Physician: Herman Cruz Admitting Physician: Herman Cruz Referring Physician: AdmtrHerman Allergies, Adverse Reactions, Alerts Substance Reaction Severity Status Soma Active Benedryl Allergy Sinus Activ e Immunizations Given and Recorded Vaccine Date Status Refusal Reason influenza virus vaccine, inactivated 1 07/19/15 Re corded Tetanus Toxoid 2 01/27/06 Recorded 1Location History: [address] [place] 2Location History: [address] [facility] Medications Cymbalta 60 mg oral enteric [...]
== END 2024-09-09 15:31 | disposition home or self-care (01) ==
PROVIDERS: PCP Physician Assistant Medical; Visit Provider Nurse Practitioner Family
DX: R68.84 Jaw pain (principal)

== ENCOUNTER → 2024-09-09 14:55 | Outpatient (BNVA) | payer MEDICARE, MEDICAID, SELFPAY | PROVIDERS: PCP Physician Assistant Medical; Visit Provider Nurse Practitioner Family | DX: R68.84 Jaw pain (principal) | CPT/HCPCS: 99212 ==

== ENCOUNTER 2024-09-21 10:17 | Outpatient (AMB) | payer MEDICARE, MEDICAID, SELFPAY ==
[2024-09-21 10:22] VITALS: BP 128/68; PULSE 68; O2SAT 100; BMI 28.5
--- NOTE | 2024-09-21 10:22 | A.OFFVIS_ITS ---
Vital Signs 09/21/24 10:22 Height 5 ft 7 in Weight 182 lb BMI 28.5 BP 128/68 Blood Pressure Location Lt brachial Position Sitting Pulse 68 Pulse Source Pulse Oximeter Pulse Oximetry (%) 100 Oxygen Delivery Method Room Air Intake Visit Reasons: abnormal chest ct Agricultural Equipment Operator Required: No Associate Software Engineer: Associate Software Engineer offered & declined Accompanied by: Self / Same As Patient Allergies carisoprodol [From SOMA] Allergy (Severe, Verified 09/21/24 10:27) THROAT SWELLING methotrexate [METHOTREXATE] Allergy (Severe, Verified 09/21/24 10:27) SEVERE COUGH, cough monosodium glutamate [MSG] Allergy (Severe, Verified 09/21/24 10:27) MIGRAINES Benadryl Allergy (Unknown, Uncoded 09/21/24 10:27) throat swelling tbhq Adverse Reaction (Severe, Uncoded 09/21/24 10:27) migraines Medication List - Last Reconciled 09/21/24 by Carola Carroll LPN albuterol sulfate 90 mcg/actuation 2 puffs inhalation Q4-6H PRN fluticasone furoate-vilanterol 200-25 mcg/dose (Breo Ellipta) 1 inh inhalation DAILY levothyroxine 137 mcg PO DAILY omeprazole 1 cap PO DAILY oxycodone 5 mg orally PRN; 10mg at hs sumatriptan succinate 1 tab PO DIRECTED HPI HPI abnormal chest ct: Details: Emiliano is a pleasant 64 year old male, never smoker, with underlying elevated left hemidiaphragm, CAD and anxiety. 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 SNIFF test 07/15 revealed immobilization of left hemidiaphragm. Referred to Dr Valadez to discuss possible surgical debulking and stabilization which she proceeded with. He had occasion surgery performed in June in has recovered quite well. He reports notable improvements in respiratory symptoms, no longer using inhalers. [facility] Medical History Tubular adenoma of colon Nocturia more than twice per night Back pain Psoriatic arthritis Spinal stenosis DDD (degenerative disc disease) Hypothyroidism GERD (gastroesophageal reflux disease) Hx of migraines History of asbestos exposure Elevated cholesterol Surgical History History of lumbar discectomy History of colonoscopy History of esophagogastroduodenoscopy (EGD) History of cholecystectomy History of right inguinal hernia repair History of left inguinal hernia repair S/P scrotal varicocelectomy Family History Brother Myocardial infarction Diabetes Mother Myocardial infarction Father No problems noted. Social History Are you a primary critical care unit nurse to a significant other at home: No Do you presently have visiting nurse or other home services: No Patient Tobacco Use Status: Never used Tobacco Review of Systems Const Denies chills, Denies excessive sweating, Denies fever(s), Denies headache(s) and Denies night sweats Eyes Denies dry eyes, Denies irritation and Denies itchy eyes ENT Reports Normal hearing present, Denies headache(s), Denies nasal congestion, Denies nasal discharge, Denies post nasal drip and Denies sore throat Card Denies chest pain, Denies chest pain at rest, Denies chest pain with activity, Denies claudication, Denies leg edema, Denies dyspnea, Denies dyspnea on exertion, Denies orthopnea and Denies paroxysmal nocturnal dyspnea Resp Denies chest congestion, Denies cough, Denies excessive phlegm production, Denies pain on inspiration, Denies pain with cough, Denies dyspnea, Denies dyspnea on exertion, Denies stridor and Denies wheezing Musc Denies myalgias Neuro Reports Normal hearing present and Denies headache(s) Endo Denies excessive sweating Bebeto/Lymph Denies lymphadenopathy Aller/Immun Denies itchy eyes, Denies seasonal rhinorrhea and Denies wheezing Physical Exam Vital Signs: Last Vital Signs Pulse 68 09/21/24 10:22 BP 128/68 09/21/24 10:22 Pulse Ox 100 09/21/24 10:22 Oxygen Delivery Method Room Air 09/21/24 10:22 BMI result Body Mass Index 28.5 Const General: cooperative, healthy appearing, comfortable, no acute distress, well developed and alert Orientation/consciousness: patient oriented x3 Limitations: no limitations HEENT Head: Yes normal to inspection, Yes normocephalic and Yes atraumatic Ears: hearing grossly normal bilaterally and external ears normal Eyes General: appearance normal, both eyes and all related structures Eyelids: Yes eyelids normal Sclerae: sclerae normal EOM: EOMs intact bilaterally Neck Neck: Yes normal visual inspection and Yes no lymphadenopathy Lymphatic: no lymphadenopathy noted Chest Chest palpation & inspection: normal inspection of the chest Resp Other: diminished in left lower base Effort & Inspection: normal respiratory effort, able to speak in complete sentences, no audible wheezes, no cough, no stridor, not tachypneic, no tripod positioning and no use of accessory muscles Cardio Jugular venous distension: no JVD Rate: regular rate Rhythm: regular rhythm Skin Other: warm, dry Neuro General: patient oriented x3 Cranial nerves: Yes Normal hearing present Cognition (Neuro): normal cognition Gait exam (Neuro): Normal gait present Psych Appearance: grossly normal and well kempt Speech and movement: Normal speech and movement present and Clear speech present Affect: normal affect Attitude: cooperative Thought process: Normal thought process present Thought content: Normal thought content present Insight: Good insight present (Psych) Judgement: Good judgement present (Psych) Assessment & Plan Assessment & Plan (1) Elevated hemidiaphragm: Comment: (Immobile left hemidiaphragm which is mildly elevated on Sniff test 07/10/23) Code(s): J98.6 - Disorders of diaphragm Category: Medical (2) Dyspnea on exertion: Comment: (06/22/23 PFT = FVC: 52%, FEV1 55%, FEV1/FVC 83%, TLC 54%, DLCO 81%) Code(s): R06.09 - Other forms of dyspnea Category: Medical (3) Disorder of phrenic nerve: Code(s): G58.8 - Other specified mononeuropathies Category: Medical Plan At this time dianne denies any respiratory symptoms after plication surgery in June. Will obtain records from [facility]. Will obtain repeat PFT in 6 months. All questions were answered and patient is in agreement of plan. Will follow up in 6 months or sooner if needed. Orders: Orders PFT pulmonary function test 6 Months G58.8 - Other specified mononeuropathies, R06.09 - Other forms of dyspnea Coding Level of Care Code Est Pt Level 3 (17318) Diagnoses Elevated hemidiaphragm J98.6 Dyspnea on exertion R06.09 Disorder of phrenic nerve G58.8
== END 2024-09-21 11:01 | disposition home or self-care (01) ==
LOC: HO.HPSW 10:18
PROVIDERS: PCP Physician Assistant Medical; Visit Provider Nurse Practitioner Family
DX: J98.6 Disorders of diaphragm (principal); R06.09 Other forms of dyspnea; G58.8 Other specified mononeuropathies
CPT/HCPCS: 99213

== ENCOUNTER → 2024-09-21 10:17 | Outpatient (BNVA) | payer MEDICARE, MEDICAID, SELFPAY | PROVIDERS: PCP Physician Assistant Medical; Visit Provider Nurse Practitioner Family | DX: J98.6 Disorders of diaphragm (principal); R06.09 Other forms of dyspnea; G58.8 Other specified mononeuropathies; I25.10 Atherosclerotic heart disease of native coronary artery without angina pectoris | CPT/HCPCS: 99212 ==

== ENCOUNTER 2024-10-28 12:31 | Outpatient (REF) | payer MEDICARE, MEDICAID, SELFPAY | END 2024-10-28 12:32 | disposition home or self-care (01) | LOC: HO.HAP 12:31 | PROVIDERS: Visit Provider Physician Assistant Medical | DX: Z46.1 Encounter for fitting and adjustment of hearing aid (principal); H90.3 Sensorineural hearing loss, bilateral | CPT/HCPCS: V5266 ==

== ENCOUNTER 2024-10-28 12:40 | Outpatient (REF) | payer SELFPAY | END 2024-10-28 12:41 | disposition home or self-care (01) | LOC: HO.HAP 12:40 | PROVIDERS: Visit Provider Physician Assistant Medical | DX: Z46.1 Encounter for fitting and adjustment of hearing aid (principal); H90.3 Sensorineural hearing loss, bilateral | CPT/HCPCS: V5267 ==

== ENCOUNTER 2025-01-26 11:56 | Outpatient (REF) | payer MEDICARE, MEDICAID, SELFPAY ==
--- OUTSIDE RECORDS SUMMARY | 2025-01-26 14:34 | XMS_ITS | Patient Health Record ---
Author Organization [facility] Address [address] [place] [address] Care Team Providers Care Film Writer Name Role Phone JENNIFER CHRISTIANSON Primary Care Provider Young Pena [phone] Allergies Allergen (clinical drug ingredient) Drug/Non Drug Allergy documented on EMR Reaction Allergy Type Onset Date Status carisoprodol Soma Unknown Drug Allergy Acti ve diphenhydramine Benadryl Unknown Drug Allergy A ctive Reason For Referral No Information Medications Medication SIG (Take, Route, Frequency, Duration) Notes Start Date End Date Status oxyCODONE HCl Orally Active Levothyroxine Sodium 125 MCG 1 tablet in the morning on an empty stomach Orally Once a day Active Enbrel 50 MG/ML 1 ml Subcutaneous weekly Active Omeprazole 20 MG 1 capsule 30 minutes before morning meal Orally Once a day Active Imitrex as needed Active Immunizations Vaccine Route Administration Date Status Comme nts Influenza Unknown 08/23/2015 Administered Influenza Unknown 07/24/2020 Administered Problems Problem Type SNOMED Code ICD Code Onset Dates Problem Status W/U Status Risk Notes Problem Screening for malignant neoplasm of colon (966750471) Encounter for screening for malignant neoplasm of colon (Z12.11) Active confirmed Problem History of adenomatous polyp of colon (321837426) History of adenomatous polyp of colon (Z86.010) Active confirmed Problem Gastroesophageal reflux disease (678662648) GERD (gastroesophag eal reflux disease) (K21.9) Active confirmed Plan Of Treatment Pending Test Test Name Order Date Pathology 03/06/2021 Future Test Test Name Order Date COLONOSCOPY 10/02/2015 UPPER GI ENDOSCOPY 02/12/2021 COLONOSCOPY 02/12/2021 Insurance Providers Payer Name Payer Address Payer Phone Subscriber Number Group Number Insured Name Patient Relationship to Insured Coverage Start Date Coverage End Date MEDICARE OF [place] [address] [place] [address] [id number] PHIL LANCE Self - patient is the insured MEDICAID OF [facility] [address] [place] [address] [id number] PHIL LANCE Self - patient is the insured Medical (General) History Medical History History ICD Code Colonoscopy 07-22-2010--1 sma ll tubular adenoma, mild diiverticulosis, small internal hemorrhoids Chronic back problems--on Oxycodone Hypothyroidism Hyperlipidemia Denies [place],DM,CVA,Lung disease,renal dise ase Psoriatic arthritis--Dr. Bose Negative colonoscopy in 12/2015 Migraines GERD Surgical History Surgery Date(Month/Year) 2 lower back operations--L4/L5 surgery on a left varicocele hernia-right inguinal and 2 on the left CCY
== END 2025-01-26 11:57 | disposition home or self-care (01) ==
LOC: HO.HAP 11:56
PROVIDERS: Visit Provider Physician Assistant Medical
DX: Z46.1 Encounter for fitting and adjustment of hearing aid (principal); H90.3 Sensorineural hearing loss, bilateral
CPT/HCPCS: V5266

== ENCOUNTER 2025-03-08 15:45 | Outpatient (REF) | payer MEDICARE, MEDICAID, SELFPAY ==
--- NOTE | 2025-03-08 16:48 | MHC.AU.HA3 ---
Hearing Instrument Follow-Up- Binaural Date of Visit: 03/08/25 Right Ear: Make, Model, Color, Serial Number: Donnie Virto P 70-312 Serial #[id number] Convenience Store Manager Repair Warranty: 11/05/2025 Convenience Store Manager Loss and Damage Warranty: 11/05/2025 [facility] Service Plan: 08/15/2023 Battery Size: 312 Director Of Surgery/Slim Tube: Earmold/Dome/CShell/SlimTip: Type of Wax Guard: CeruStop Dispensed By: [facility] Date of Fittin08/15/2022 Left Ear: Make, Model, Color, Serial Number: Phonak Virto P 70-312 Serial #[id number] Convenience Store Manager Repair Warranty: 11/05/2022 Convenience Store Manager Loss and Damage Warranty: 11/05/2022 [facility] Service Plan: 08/15/2023 Battery Size: 312 Director Of Surgery/Slim Tube: Earmold/Dome/CShell/SlimTip: Type of Wax Guard: CeruStop Dispensed By: [facility] Date of Fittin08/15/2022 Follow-Up Summary: Emiliano is here for re-evaluation and hearing aid maintenance. Hearing stable. Notes his left aid seems to cut out when he raises his arm above his head and sometimes when out in his driveway. Also reports only getting 1.5 days from batteries dispensed here, longer with ones from [facility]. Cleaned aids, replaced wax guards, ran through dehumidifier. Left microphones not amplifying. Sending for repair. Right vent has small crack, pt does not want to send out at this time. Recommend monitoring battery life with new batch. Will call when left device returns. Recommendations: Recommendations: Patient will be contacted when materials have arrived. Diagnosis Code(s): H90.3 binaural sensorineural hearing loss Signature: Provider: Cuco Galvin, CCC-A
--- OUTSIDE RECORDS SUMMARY | 2025-03-08 18:07 | XMS_ITS | Patient Health Record ---
Author Organization [facility] Address [address] [place] [address] Care Team Providers Care Careers Counsellor Name Role Phone JENNIFER CHRISTIANSON Primary Care Provider Young Pena [phone] Allergies Allergen (clinical drug ingredient) Drug/Non Drug [...] Problem Screening for malignant neoplasm of colon (797527885) Encounter for screening for malignant neoplasm of colon (Z12.11) Active confirmed Problem History of adenomatous polyp of colon (039025985) History of adenomatous polyp of colon (Z86.010) Active confirmed Problem Gastroesophageal reflux disease (660185329) GERD (gastroesophag eal reflux disease) (K21.9) Active confirmed Plan Of Treatment Pending Test Test Name Order Date Pathology 03/06/2021 Future Test Test Name Order Date COLONOSCOPY 10/02/2015 UPPER GI ENDOSCOPY 02/12/2021 COLONOSCOPY 02/12/2021 Insurance Providers Payer Name Payer Address Payer Phone Subscriber Number Group Number Insured Name Patient Relationship to Insured Coverage Start Date Coverage End Date MEDICARE OF [place] [address] [place] [address] [id number] PHIL LANCE Self - patient is the insured MEDICAID OF [facility] [address] [place] [address] [id number] PHIL LANCE Self - patient is the insured Medical (General) History Medical History History ICD Code Colonoscopy 07-22-2010--1 sma ll tubular adenoma, mild diiverticulosis, small internal hemorrhoids Chronic back problems--on Oxycodone Hypothyroidism Hyperlipidemia Denies [place],DM,CVA,Lung disease,renal dise ase Psoriatic arthritis--Dr. Bose Negative colonoscopy in 12/2015 Migraines GERD Surgical History Surgery Date(Month/Year) 2 lower back operations--L4/L5 surgery on a left varicocele hernia-right inguinal and 2 on the left CCY
== END 2025-03-08 15:46 | disposition home or self-care (01) ==
LOC: HO.SH 15:45
PROVIDERS: Visit Provider Physician Assistant
DX: Z01.118 Encounter for examination of ears and hearing with other abnormal findings (principal); Z46.1 Encounter for fitting and adjustment of hearing aid; H90.3 Sensorineural hearing loss, bilateral
CPT/HCPCS: 92552; 92556; 92593; 99499

== ENCOUNTER 2025-03-14 07:54 | Outpatient (REF) | payer MEDICARE, MEDICAID, SELFPAY ==
--- NOTE | 2025-03-14 07:57 | PFT_ITS ---
Spirometry [] Lung Volumes [] Diffusion Capacity [] Methacholine Challenge [] Flow Volume Loops [] MVV [] MIP/MEP(Max inspiratory pressure/Max expiratory pressure) [] 6 Minute Walk Test [] ABG [] Interpretation [] MTDD
--- OUTSIDE RECORDS SUMMARY | 2025-03-14 07:58 | XMS_ITS | Patient Health Record ---
Author Organization [facility] Address [address] [place] [address] Care Team Providers Care Genetic Coordinator Name Role Phone JENNIFER CHRISTIANSON Primary Care Provider Young Pena [phone] Allergies Allergen (clinical drug ingredient) Drug/Non Drug [...] Problem Screening for malignant neoplasm of colon (300270784) Encounter for screening for malignant neoplasm of colon (Z12.11) Active confirmed Problem History of adenomatous polyp of colon (749569439) History of adenomatous polyp of colon (Z86.010) Active confirmed Problem Gastroesophageal reflux disease (324774713) GERD (gastroesophag eal reflux disease) (K21.9) Active [...] OF [place] [address] [place] [address] [phone] [id number] PHIL LANCE Self - patient is the insured MEDICAID OF [facility] [address] [place] [address] [id number] PHIL LANCE Self - patient is the insured Medical (General) History Medical History History ICD Code Colonoscopy 07-22-2010--1 sma ll tubular adenoma, mild diiverticulosis, small internal hemorrhoids Chronic back problems--on Oxycodone Hypothyroidism Hyperlipidemia Denies [place],DM,CVA,Lung disease,renal dise ase Psoriatic arthritis--Dr. Bose Negative colonoscopy in 12/2015 Migraines GERD Surgical History Surgery Date(Month/Year) 2 lower back operations--L4/L5 surgery on a left varicocele hernia-right inguinal and 2 on the left CCY
[2025-03-14 08:42] VITALS: PULSE 72; O2SAT 99
== END 2025-03-14 07:55 | disposition home or self-care (01) ==
LOC: HO.RESP 07:54
PROVIDERS: PCP Physician Assistant; Visit Provider Nurse Practitioner Family
DX: G58.8 Other specified mononeuropathies (principal); R06.09 Other forms of dyspnea
CPT/HCPCS: 94010; 94640; 94727; 94729

== ENCOUNTER → 2025-03-14 07:57 | Outpatient (BNV) | payer MEDICARE, MEDICAID, SELFPAY | PROVIDERS: PCP Physician Assistant; Visit Provider Internal Medicine Pulmonary Disease | DX: R06.09 Other forms of dyspnea (principal) | CPT/HCPCS: 94060; 94727; 94729 ==

== ENCOUNTER 2025-03-21 09:55 | Outpatient (AMB) | payer MEDICARE, MEDICAID, SELFPAY ==
[2025-03-21 09:58] VITALS: BP 126/70; PULSE 79; O2SAT 97; BMI 29.3
--- NOTE | 2025-03-21 09:58 | MHC.OFFVIS ---
Vital Signs 03/21/25 09:58 Height 5 ft 7 in Weight 187 lb BMI 29.3 BP 126/70 Pulse 79 Pulse Source Pulse Oximeter Pulse Oximetry (%) 97 Oxygen Delivery Method Room Air Intake Visit Reasons: abnormal chest ct Catering Coordinator: Catering Coordinator offered & declined Accompanied by: Self / Same As Patient Allergies carisoprodol [From SOMA] Allergy (Severe, Verified 03/21/25 10:01) THROAT SWELLING methotrexate [METHOTREXATE] Allergy (Severe, Verified 03/21/25 10:01) SEVERE COUGH, cough monosodium glutamate [MSG] Allergy (Severe, Verified 03/21/25 10:01) MIGRAINES Benadryl Allergy (Unknown, Uncoded 03/21/25 10:01) throat swelling tbhq Adverse Reaction (Severe, Uncoded 03/21/25 10:01) migraines Medication List - Last Reconciled 03/21/25 by Carola Carroll LPN albuterol sulfate 90 mcg/actuation 2 puffs inhalation Q4-6H PRN fluticasone furoate-vilanterol 200-25 mcg/dose (Breo Ellipta) 1 inh inhalation DAILY levothyroxine 137 mcg PO DAILY omeprazole 1 cap PO DAILY oxycodone 5 mg orally PRN; 10mg at hs sumatriptan succinate 1 tab PO DIRECTED HPI HPI abnormal chest ct: Details: Emiliano is a pleasant 64 year old male, never smoker, with underlying elevated left hemidiaphragm s/p plication 06/2024, CAD and anxiety. Unsure of underlying cause of left hemidiaphragm elevation however underwent SNIFF test 07/15 which revealed immobilization of left hemidiaphragm. He was then referred to Dr. Valadez, who performed surgical debulking and stabilization of left hemidiaphragm in 06/2024. He has been doing quite well since surgery, notes occasional tightness, now recent imaging. He reports intermittent dyspnea with moderate exertion, denies wheezing, cough. He does have albuterol MDI however does not use. He denies any visits to urgent care or hospitalizations related to respiratory distress since the last visit. Today he presents to review post surgery PFT. [facility] Medical History Tubular adenoma of colon Nocturia more than twice per night Back pain Psoriatic arthritis Spinal stenosis DDD (degenerative disc disease) Hypothyroidism GERD (gastroesophageal reflux disease) Hx of migraines History of asbestos exposure Elevated cholesterol Surgical History History of lumbar discectomy History of colonoscopy History of esophagogastroduodenoscopy (EGD) History of cholecystectomy History of right inguinal hernia repair History of left inguinal hernia repair S/P scrotal varicocelectomy Family History Brother Myocardial infarction Diabetes Mother Myocardial infarction Father No problems noted. Social History Are you a primary morning caregiver to a significant other at home: No Do you presently have visiting nurse or other home services: No Patient Tobacco Use Status: Never used Tobacco Review of Systems Const Denies chills, Denies excessive sweating, Denies fever(s), Denies headache(s) and Denies night sweats Eyes Denies dry eyes, Denies irritation and Denies itchy eyes ENT Reports Normal hearing present, Denies headache(s), Denies nasal congestion, Denies nasal discharge, Denies post nasal drip and Denies sore throat Card Denies chest pain, Denies chest pain at rest, Denies chest pain with activity, Denies claudication, Denies leg edema, Denies orthopnea and Denies paroxysmal nocturnal dyspnea Resp Denies chest congestion, Denies cough, Denies excessive phlegm production, Denies pain on inspiration, Denies pain with cough, Denies stridor and Denies wheezing Musc Denies myalgias Neuro Reports Normal hearing present and Denies headache(s) Endo Denies excessive sweating Bebeto/Lymph Denies lymphadenopathy Aller/Immun Denies itchy eyes, Denies seasonal rhinorrhea and Denies wheezing Physical Exam Vital Signs: Last Vital Signs Pulse 79 03/21/25 09:58 BP 126/70 03/21/25 09:58 Pulse Ox 97 03/21/25 09:58 Oxygen Delivery Method Room Air 03/21/25 09:58 BMI result Body Mass Index 29.3 Const General: cooperative, healthy appearing, comfortable, no acute distress, well developed and alert Orientation/consciousness: patient oriented x3 Limitations: no limitations HEENT Head: Yes normal to inspection, Yes normocephalic and Yes atraumatic Ears: hearing grossly normal bilaterally and external ears normal Eyes General: appearance normal, both eyes and all related structures Eyelids: Yes eyelids normal Sclerae: sclerae normal EOM: EOMs intact bilaterally Neck Neck: Yes normal visual inspection and Yes no lymphadenopathy Lymphatic: no lymphadenopathy noted Chest Chest palpation & inspection: normal inspection of the chest Resp Effort & Inspection: normal respiratory effort, able to speak in complete sentences, no audible wheezes, no cough, no stridor, not tachypneic, no tripod positioning and no use of accessory muscles Auscultation: clear to auscultation bilaterally Cardio Jugular venous distension: no JVD Rate: regular rate Rhythm: regular rhythm Skin Other: warm, dry General skin exam: no rashes or lesions noted Neuro General: patient oriented x3 Cranial nerves: Yes Normal hearing present Cognition (Neuro): normal cognition Gait exam (Neuro): Normal gait present Extrem General: Yes normal to inspection, Yes capillary refill normal, Yes no clubbing, cyanosis or edema and Yes no pedal edema Psych Appearance: grossly normal and well kempt Speech and movement: Normal speech and movement present and Clear speech present Affect: normal affect Attitude: cooperative Thought process: Normal thought process present Thought content: Normal thought content present Insight: Good insight present (Psych) Judgement: Good judgement present (Psych) Assessment & Plan Assessment & Plan (1) Elevated hemidiaphragm: Comment: (Immobile left hemidiaphragm which is mildly elevated on Sniff test 07/10/23) Code(s): J98.6 - Disorders of diaphragm Category: Medical (2) Dyspnea on exertion: Comment: (06/22/23 PFT = FVC: 52%, FEV1 55%, FEV1/FVC 83%, TLC 54%, DLCO 81%) Code(s): R06.09 - Other forms of dyspnea Category: Medical (3) Disorder of phrenic nerve: Code(s): 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 Decreased expiratory reserve volume suggests extrathoracic restriction likely secondary to abdominal obesity. There have been notable improvements in FEV1, previously 55 now 80, TLC previously 54 now 73, and DLCO previously 81 now 98. At this time Emiliano reports intermittent dyspnea on exertion, recommended to trial albuterol MDI. He is aware to call if symptoms change or worsen. Will send for CXR to assess post surgery changes. All questions were answered and patient is in agreement of plan. Will follow up in 9-12 months or sooner if needed. Orders: Orders XR chest 2V Today G58.8 - Other specified mononeuropathies, J98.6 - Disorders of diaphragm Coding Level of Care Code Est Pt Level 4 (14940) Diagnoses Elevated hemidiaphragm J98.6 Dyspnea on exertion R06.09 Disorder of phrenic nerve G58.8
== END 2025-03-21 10:16 | disposition home or self-care (01) ==
LOC: HO.HPSW 09:56
PROVIDERS: PCP Physician Assistant Medical; Visit Provider Nurse Practitioner Family
DX: J98.6 Disorders of diaphragm (principal); R06.09 Other forms of dyspnea; G58.8 Other specified mononeuropathies
CPT/HCPCS: 99214

== ENCOUNTER → 2025-03-21 09:55 | Outpatient (BNVA) | payer MEDICARE, MEDICAID, SELFPAY | PROVIDERS: PCP Physician Assistant Medical; Visit Provider Nurse Practitioner Family | DX: J98.6 Disorders of diaphragm (principal); G58.8 Other specified mononeuropathies; R06.09 Other forms of dyspnea | CPT/HCPCS: 99212 ==

== ENCOUNTER 2025-04-12 10:03 | Outpatient (REF) | payer MEDICARE, MEDICAID, SELFPAY ==
--- OUTSIDE RECORDS SUMMARY | 2025-04-12 11:30 | XMS_ITS | Patient Health Record ---
Author Organization [facility] Address [address] [place] [address] Care Team Providers Care Electrical Construction Project Manager Name Role Phone JENNIFER CHRISTIANSON Primary Care Provider Young Pena [phone] Allergies Allergen (clinical drug ingredient) Drug/Non Drug [...] Problem Screening for malignant neoplasm of colon (562155247) Encounter for screening for malignant neoplasm of colon (Z12.11) Active confirmed Problem History of adenomatous polyp of colon (Z86.010) Active confirmed Problem Gastroesophageal reflux disease (852362312) GERD (gastroesophag eal reflux disease) (K21.9) Active [...] OF [place] [address] [place] [address] [id number] PHIL LANCE Self - patient is the insured [facility]ICAID OF [facility] [address] [place] [address] [id number] PHIL LANCE Self - patient is the insured Medical (General) History Medical History History ICD Code Colonoscopy 07-22-2010--1 sma ll tubular adenoma, mild diiverticulosis, small internal hemorrhoids Chronic back problems--on Oxycodone Hypothyroidism Hyperlipidemia Denies [place],DM,CVA,Lung disease,renal dise ase Psoriatic arthritis--Dr. Bose Negative colonoscopy in 12/2015 Migraines GERD Surgical History Surgery Date(Month/Year) 2 lower back operations--L4/L5 surgery on a left varicocele hernia-right inguinal and 2 on the left CCY
== END 2025-04-12 10:04 | disposition home or self-care (01) ==
LOC: HO.HAP 10:03
PROVIDERS: Visit Provider Physician Assistant Medical
DX: Z13.89 Encounter for screening for other disorder (principal)

== ENCOUNTER 2025-05-05 11:47 | Outpatient (REF) | payer MEDICARE, MEDICAID, SELFPAY ==
--- OUTSIDE RECORDS SUMMARY | 2025-05-05 12:44 | XMS_ITS | Clinical Summary ---
Author Organization [facility] Address [address] [place] [address] Care Team Providers Care Tab Cutter Name Role Phone Michelle Richardson Primary Care Provider [phone] Surgical History Surgery Date Site/Laterality Comments CHOLECYSTECTOMY PROCEDURE: NE LAPAROSCOPY SURG CHOLECYSTECTOMY HERNIA REPAIR Bilateral PROCEDURE: NE RPR 1ST INGUN HRNA AGE 7 MO-5 YRS REDUCIBLE OTHER SURGICAL HISTORY N/A PROCEDURE: NE ESOPHAG MUC INTEG W/ESO EGD COLONOSCOPY N/A PROCEDURE: HISTORICAL COLONOSCOPY BACK SURGERY N/A PROCEDURE: HISTORICAL BACK SURGERY; COMMENT: Lumbar Discectomy Medical History Medical History Date Comments Hyperlipidemia DX:Hyperlipidemi a Degenerative disc disease, cervical DX:Degenerative disc disease, cervical Spinal stenosis DX:Spinal stenos is Psoriatic arthritis (CMS/HCC V24, CMS/HCC V28) DX:Psoriatic arthritis (HCC) Hypothyroidism DX:Hypothyroidis m Nocturia more than twice per night DX:Nocturia more than twice per night Back pain DX:Back pain GERD (gastroesophageal reflux disease) DX:GERD (gastroesophageal reflux disease) Hx of migraines DX:Hx of migrain es History of asbestos exposure DX: History of asbestos exposure Disorders of diaphragm 07/20/2024 DX:Disord ers of diaphragm; COMMENT: Left paralyzed diaphragm Family History Medical History Relation Name Comments Diabetes Brother Heart attack Brother No Known Problems Father Heart attack Mother Relation Name Status Comments Brother Father Mother Social History Tobacco Use Types Packs/Day Years Used Date Smoking Tobacco: Never Smokeless Tobacco: Never Sex and Gender Information Value Date Recorded Sex Assigned at Not on file Legal Sex Male 11:25 AM EST Gender Identity Not on file Sexual Orientation Not on file Obstetrics History Last Filed Vital Signs Vital Sign Reading Time Taken Comments Blood Pressure 154/81 08/01/2024 1:44 PM EDT Sit ting L Arm Pulse 70 08/01/2024 1:44 PM EDT Temperature - - Respiratory Rate - - Oxygen Saturation - - Inhaled Oxygen Concentration - - Weight 78.9 kg (174 lb) 08/01/2024 1:44 PM EDT Height 172.7 cm (5' 8 ) 08/01/2024 1:44 PM EDT Body Mass Index 26.46 08/01/2024 1:44 PM EDT Plan of Treatment Health Maintenance Due Date Last Done Comments DTaP,Tdap,and Td Vaccines (1 - Tdap) 1980 Pneumococcal Vaccine: 50+ Ye ars (1 of 1 - PCV) 2011 Zoster Vaccines (1 of 2) 2011 Cholesterol Screening (Lipid Panel) 12/22/2023 Colorectal Cancer Screening: Colonoscopy 12/22/2023 Depression Screening 12/22/2023 HIV Screening 12/22/2023 Hepatitis C Screening 12/22/2023 Social Influencers of Health Screening 12/22/2023 COVID-19 Vaccine ( - 2023-2 5 season) 2024 Influenza Vaccine (Season Ended) 2025 RSV Immunization Adult Patie nts (1 - 1-dose 75+ series) 2036 HIB Vaccines Aged Out No longer eligi ble based on patient's age to complete this topic HPV Vaccines Aged Out No longer eligi ble based on patient's age to complete this topic Hepatitis A Vaccines Aged Out No long er eligible based on patient's age to complete this topic Hepatitis B Vaccines Aged Out No long er eligible based on patient's age to complete this topic IPV Vaccines Aged Out No longer eligi ble based on patient's age to complete this topic MMR Vaccines Aged Out No longer eligi ble based on patient's age to complete this topic Meningococcal ACWY Vaccine Aged Out N o longer eligible based on patient's age to complete this topic Meningococcal B Vaccine Aged Out No l onger eligible based on patient's age to complete this topic Pneumococcal Vaccine: Pediat rics (0 to 5 Years) and At-Risk Patients (6 to 64 Years) Aged Out No longer eligible b ased on patient's age to complete this topic RSV Immunization Patients Un alexia 20 months Aged Out No longer eligible b ased on patient's age to complete this topic Varicella Vaccines Aged Out No longer eligible based on patient's age to complete this topic Care Teams Tab Cutter Relationship Specialty Start Date End Date Michelle Richardson PA [address] [place] [address] PCP - General 08/01/24
== END 2025-05-05 11:48 | disposition home or self-care (01) ==
LOC: HO.SH 11:47
PROVIDERS: Visit Provider Physician Assistant Medical
DX: Z46.1 Encounter for fitting and adjustment of hearing aid (principal)
CPT/HCPCS: V5266

== ENCOUNTER 2025-08-09 13:32 | Outpatient (REF) | payer MEDICARE, MEDICAID, SELFPAY ==
--- OUTSIDE RECORDS SUMMARY | 2011-08-15 | XMS_ITS | Encounter Summary ---
Author Organization [facility] Address [address] [place] [address] [place] [phone] Phone Care Team Providers Care Public Health Service Officer Name Role Phone Unavailable Primary Care Provider Unavailabl e Encounter Details Date Type Department Care Team (Late st Contact Info) Description 08/15/2011 Hospital Encounter [facility],Outside Imaging [address] [place], [place] [phone] System, Provider Not In, PhD [address] [address] Social History Tobacco Use Types Packs/Day Years [...] Care Team (Late st Contact Info) Description 08/24/2025 11:00 AM EDT Office Visit [facility] Rheumatology [address] [place] [address] Thelma Anna MD [address] [facility], [address] [place] [address] [email or web address] documented as of this encounter Procedures Procedure [...] It is not the complete legal health record.[facility]
--- OUTSIDE RECORDS SUMMARY | 2025-08-09 17:21 | XMS_ITS | Patient Health Record ---
Author Organization [facility] Address [address] [place] [address] Care Team Providers Care Geriatric Social Work Professor Name Role Phone JENNIFER CHRISTIANSON Primary Care Provider Young Pena [phone] Allergies Allergen (clinical drug ingredient) Drug/Non Drug [...] Problem Screening for malignant neoplasm of colon (142229232) Encounter for screening for malignant neoplasm of colon (Z12.11) Active confirmed Problem History of adenomatous polyp of colon (619132026) History of adenomatous polyp of colon (Z86.010) Active confirmed Problem Gastroesophageal reflux disease (562073003) GERD (gastroesophag eal reflux disease) (K21.9) Active [...] OF [place] [address] [place] [address] [id number] PHIL LANCE Self - patient is the insured MEDICAID OF [facility] [address] [place] [address] [phone] [id number] PHIL LANCE Self - patient is the insured Medical (General) History Medical History History ICD Code Colonoscopy 07-22-2010--1 sma ll tubular adenoma, mild diiverticulosis, small internal hemorrhoids Chronic back problems--on Oxycodone Hypothyroidism Hyperlipidemia Denies MA,DM,CVA,Lung disease,renal dise ase Psoriatic arthritis--Dr. Bose Negative colonoscopy in 12/2015 Migraines GERD Surgical History Surgery Date(Month/Year) 2 lower back operations--L4/L5 surgery on a left varicocele hernia-right inguinal and 2 on the left CCY
--- OUTSIDE RECORDS SUMMARY | 2025-08-09 17:21 | XMS_ITS | Encounter Summary ---
Author Organization [facility] Address [address] [place] [address] Phone Care Team Providers Care Painting Department Supervisor Name Role Phone Thelma Anna MD Unavailable [phone] Ketan Hoffmann MD Unavailable [phone] Duc Burch Primary Care Provider Michelle Richardson Primary Care Provider [phone] Encounter Details Date Type Department Care Team (Late st Contact Info) Description 01/24/2020 Ancillary Orders [facility],Outside Imaging [address] [place], [place] [id number] System, Provider Not In, [facility] [address] [address] Social History Tobacco Use Types Packs/Day Years Used Date Smoking Tobacco: Never Smokeless Tobacco: Never Alcohol Use Standard Drinks/Week Comments No 0 (1 standard drink = 0.6 oz pur e alcohol) Sex and Gender Information Value Date Recorded Sex Assigned at Not on file Legal Sex Male 9:47 PM EDT Gender Identity Not on file Sexual Orientation Not on file documented as of this encounter Plan of Treatment Upcoming Encounters Date Type Department Care Team (Late st Contact Info) Description 08/24/2025 11:00 AM EDT Office Visit [facility] Rheumatology [address] [place] [address] Thelma Anna MD [address] [place] [address], [address] [place] [address] [email or web address] documented as of this encounter Results * MRI Spine (Bone) Outside (No Interpretation) (05/01/2014 12:00 AM EDT) Narrative SYSTEMGENERATED, DOCUMENTATION - 01/24/2020 5:23 PM EST This study is for PACS storage only and not for interpretation. us Provider Not In System PhD IMG OUTSIDE IMAGING W /OUT INTERPRETATION Final Result * MRI Lower Extremity Outside (No Interpretation) (08/15/2011 12:00 AM EDT) Narrative SYSTEMGENERATED, DOCUMENTATION - 01/24/2020 5:24 PM EST This study is for PACS storage only and not for interpretation. us Provider Not In System PhD IMG OUTSIDE IMAGING W /OUT INTERPRETATION Final Result documented in this encounter Visit Diagnoses Not on filedocumented in this encounter Care Teams Painting Department Supervisor Relationship Specialty Start Date End Date Duc Burch PA [address] [place] [address] [email or web address] PCP - General Unknown Provider Specialty 09/29/18 06/11/23 Michelle Richardson PA [address] [place] [phone] [email or web address] PCP - General Physician Court Usher 06/12/23 Thelma Anna MD [address] [facility], [address] [place] [address] [email or web address] Historical LMR Provider 09/10/17 Ketan Hoffmann MD [address] [address] Historical LMR Provider 09/10/17 2 documented as of this encounter Additional Source Comments The information contained in this document represents components of the legal health record. It is not the complete legal health record.[facility]
--- OUTSIDE RECORDS SUMMARY | 2025-08-09 17:21 | XMS_ITS | Encounter Summary ---
Author Organization [facility] Address [address] [place] [address] Phone Care Team Providers Care Deputy K 9 Name Role Phone Thelma Anna MD Unavailable Ketan Hoffmann MD Unavailable [phone] Duc Burch Primary Care Provider [phone] Michelle Richardson Primary Care Provider [phone] Reason for Referral * MRI/CAT Scan - Closed Specialty Diagnoses / Procedures Referred By Contac t Referred To Contact Radiology Diagnoses Other intervertebral disc displacement, lumbar region Procedures MRI Lumbar Spine Ulysses Weaver MD [address] [place] [address] Phone: tel: fax: Referral ID Status Reason Start Date Expiration Date Visits Re quested Visits Authorized [id number] Closed 01/18/2020 01/17/2021 1 1 Encounter Details Date Type Department Care Team (Late st Contact Info) Description 01/18/2020 Ancillary Orders Virtual Department [address] [place] [address] Ulysses Weaver MD [address] [place] [address] Other intervertebral disc displacement, lumbar region Social History Tobacco Use Types Packs/Day Years [...] Description 08/24/2025 11:00 AM EDT Office Visit [facility] Rheumatology [address] [place] [address] Thelma Anna MD [address] [facility], [address] [place] [address] [email or web address] documented as of this encounter Results * MRI LUMBAR SPINE (NEURO) WITHOUT CONTRAST (01/20/2020 3:21 PM EST) Anatomical Region Laterality Modality L-spine Magnetic Resonan ce 01/20/2020 5:33 PM EST Impressions 01/20/2020 6:00 PM EST Advanced multilevel degenerative changes as described above. Severe canal stenosis at L3-L4 and L4-L5. Severe neuroforaminal stenosis on the right at L3-L4 and on the left at L4-L5. POS - [id number] Narrative 01/20/2020 6:00 PM EST EXAM: MRI LUMBAR SPINE (NEURO) WITHOUT INTRAVENOUS CONTRAST COMPARISON: Lumbar spine MRI images from November 13, 2009 HISTORY: Other intervertebral disc displacement, lumbar region TECHNIQUE: Exam performed on a 1.5 Lizabeth high-field MRI scanner. Magnetic resonance imaging of the lumbar spine was performed WITHOUT injected contrast using standard department protocols. Sagittal T1, T2 and STIR, axial T1 and T2 sequences were obtained. FINDINGS: ALIGNMENT: Levocurvature of the lumbar spine. Minimal retrolisthesis of L1 on L2 and L4 on L5. VERTEBRAL BODIES: Vertebral body heights are relatively maintained. Prominent degenerative endplate changes from L1 to L5 levels. Schmorl's nodes at multiple levels. INTERVERTEBRAL DISCS: Desiccation changes of all included discs. Asymmetrical loss of height of the discs from T1-L5.. SPINAL CORD/CONUS: Included spinal cord has normal caliber and signal characteristics. The conus terminates normally at L1 level. Level by level analysis yields the following: T11-T12: No disc herniation. No significant canal or neuroforaminal stenosis. T12-L1: Mild bulging disc contributes to mild canal stenosis. No significant neuroforaminal stenosis. L1-2: Combination of bulging disc, posterior marginal osteophytes and hypertrophy of posterior elements results in moderate canal stenosis and moderate bilateral neuroforaminal stenosis. L2-3: Combination of bulging disc, posterior marginal osteophytes and hypertrophy of posterior elements results in moderate/severe canal stenosis and moderate/severe right and mild left neuroforaminal stenosis. L3-4: Combination of bulging disc, posterior marginal osteophytes and hypertrophy of posterior elements results in severe canal stenosis and severe right and moderate/severe left neuroforaminal stenosis. L4-5: Combination of bulging disc, posterior marginal osteophytes and hypertrophy of posterior elements results in severe canal stenosis, and severe left and moderate right neuroforaminal stenosis. Synovial cyst posterior to the left facet joint measures 1.5 cm. L5-S1: Deformity of the right lamina, likely post surgical. Facet arthropathy contributes to mild right neuroforaminal stenosis. No significant canal or left neuroforaminal stenosis. Advanced multilevel degenerative changes have progressed from 2008. OTHERS:Visualized portions of the retroperitoneal structures are grossly unremarkable. Posterior paraspinal soft tissues are unremarkable. Procedure Note Sujey Covington MD - 01/20/2020 EXAM: MRI LUMBAR SPINE (NEURO) WITHOUT INTRAVENOUS CONTRAST COMPARISON: Lumbar spine MRI images from November 13, 2009 HISTORY: Other intervertebral disc displacement, lumbar region TECHNIQUE: Exam performed on a 1.5 Lizabeth high-field MRI scanner. Magneticresonance imaging of the lumbar spine was performed WITHOUT injectedcontrast using standard department protocols. Sagittal T1, T2 and STIR,axial T1 and T2 sequences were obtained. FINDINGS: ALIGNMENT: Levocurvature of the lumbar spine. Minimal retrolisthesis of L1on L2 and L4 on L5. VERTEBRAL BODIES: Vertebral body heights are relatively maintained.Prominent degenerative endplate changes from L1 to L5 levels. Schmorl'snodes at multiple levels. INTERVERTEBRAL DISCS: Desiccation changes of all included discs.Asymmetrical loss of height of the discs from T1-L5.. SPINAL CORD/CONUS: Included spinal cord has normal caliber and signalcharacteristics. The conus terminates normally at L1 level. Level by level analysis yields the following: T11-T12: No disc herniation. No significant canal or neuroforaminalstenosis. T12-L1: Mild bulging disc contributes to mild canal stenosis. Nosignificant neuroforaminal stenosis. L1-2: Combination of bulging disc, posterior marginal osteophytes andhypertrophy of posterior elements results in moderate canal stenosis andmoderate bilateral neuroforaminal stenosis. L2-3: Combination of bulging disc, posterior marginal osteophytes andhypertrophy of posterior elements results in moderate/severe canalstenosis and moderate/severe right and mild left neuroforaminalstenosis. L3-4: Combination of bulging disc, posterior marginal osteophytes andhypertrophy of posterior elements results in severe canal stenosis andsevere right and moderate/severe left neuroforaminal stenosis. L4-5: Combination of bulging disc, posterior marginal osteophytes andhypertrophy of posterior elements results in severe canal stenosis, andsevere left and moderate right neuroforaminal stenosis. Synovial cystposterior to the left facet joint measures 1.5 cm. L5-S1: Deformity of the right lamina, likely post surgical. Facetarthropathy contributes to mild right neuroforaminal stenosis. Nosignificant canal or left neuroforaminal stenosis. Advanced multilevel degenerative changes have progressed from 2008. OTHERS:Visualized portions of the retroperitoneal structures are grosslyunremarkable. Posterior paraspinal soft tissues are unremarkable. IMPRESSION: Advanced multilevel degenerative changes as described above. Severe canalstenosis at L3-L4 and L4-L5. Severe neuroforaminal stenosis on the rightat L3-L4 and on the left at L4-L5. POS - [id number] Ulysses Weaver MD [facility] MR XSPECIALTY Final Result documented in this encounter Visit Diagnoses Diagnosis Other intervertebral disc displacement, lumbar region Other intervertebral disc displacement, lumbar region documented in this encounter Care Teams Deputy K 9 Relationship Specialty Start Date End Date Duc Burch PA [address] [place] [address] [email or web address] PCP - General Unknown Provider Specialty 09/29/18 06/11/23 Michelle Richardson PA [address] [place] [phone] [email or web address] PCP - General Physician Gas Compressor Turbine Operator 06/12/23 Thelma Anna MD [address] [facility] [address] [place] [address] [email or web address] Historical LMR Provider 09/10/17 Ketan Hoffmann MD [address] [address] Historical LMR Provider 09/10/17 2 documented as of this encounter Additional Source Comments The information contained in this document represents components of the legal health record. It is not the complete legal health record.[facility]
--- OUTSIDE RECORDS SUMMARY | 2025-08-09 17:21 | XMS_ITS | Clinical Summary ---
Author Organization [facility] Address [address] [place] [id number] Phone Care Team Providers Care Data Officer Name Role Phone Thelma Anna MD Unavailable [phone] Michelle Richardson Primary Care Provider [phone] Allergies Active Allergy Reactions Criticality Noted Date Comments Carisoprodol 06/24/2017 Other reaction(s): uvula swelling Diphenhydramine Hcl 06/24/2017 Other reaction(s): uvula swelling Gabapentin Diarrhea 05/23/2019 Methotrexate 08/02/2020 Topiramate 11/25/2017 Sleeping all the time. Not all there Medications SUMAtriptan (IMITREX) 100 MG tablet Take 1 tablet by mouth as needed. As needed for migraine Active omeprazole (PRILOSEC) 20 MG capsule Take 20 mg by mouth every other day. Active oxyCODONE 5 MG immediate release tablet Take 5 mg by mouth every 6 (six) hours as needed for moderate pain. Active levothyroxine (SYNTHROID, LEVOTHROID) 137 MCG tablet Take 1 tablet by mouth daily. 3 Active VENTOLIN HFA 90 mcg/actuation inhaler Inhale 2 puffs into the lungs every 4 (four) hours as needed. 4 Active etanercept (ENBREL SURECLICK) 50 mg/mL (1 mL) PnIjIndications:P soriatic arthritis Inject 1 mL (50 mg total) under the skin every 7 days. 4 mL 11 5 Active secukinumab (COSENTYX PEN, 2 PENS,) 150 mg/mL subcutaneous pen injectionIndicati ons:Psoriatic arthritis Inject 1 mL (150 mg total) under the skin every 28 days. 1 mL 11 5 Active Active Problems Problem Noted Date Diagnosed Date Encounter for monitoring of etanercept therapy 0 04/24/2025 Assessment & Plan (04/24/2025 10:02 AM EDT): Hold Enbrel when running fever, feeling sick or taking antibiotics. Complete entire course of antibiotics and wait at least 48 hours after the last dose to make sure that infection does not recur. Monitor for injection site reactions. Make sure to inform any new MD, PA, [employer] about chronic therapy with Enbrel particularly in emergency situations. Achilles tendinitis of left lower extremity 12/2024 Assessment & Plan (04/24/2025 10:40 AM EDT): Use warm packs prior to gentle stretching and muscle strengthening exercises as educated by PT-formal referral provided. He may benefit from topical Voltaren, Arnica or Biofreeze applied 2-3 times daily and if needed at bedtime. \ Wear well-fitting, supportive shoes Chronic left-sided low back pain with sciatica 1 Assessment & Plan (12/19/2024 3:20 PM EST): Avoid bending, stooping, heavy lifting, sudden turns. Use warm pack followed by gentle, regular ROM, stretching and core muscle strengthening exercises. Topical cream/gel versus medicated patches may provide additional benefit Assessment & Plan (08/25/2024 1:02 PM EDT): Avoid bending, stooping, heavy lifting, sudden turns. Use warm pack followed by gentle, regular ROM, stretching and core muscle strengthening exercises. Topical cream/gel versus medicated patches may provide additional benefit Status post plication of diaphragm 08/25/2024 Assessment & Plan (04/24/2025 10:02 AM EDT): He did find it is completely restoring his breathing . Assessment & Plan (12/20/2024 10:24 PM EST): He did find it is completely restoring his breathing . Assessment & Plan (08/25/2024 1:02 PM EDT): He did not find it is completely restoring his breathing but feels a bit better and is in the process of recovering. Stiff neck 07/14/2024 Assessment & Plan (07/14/2024 12:39 PM EDT): Use warm pack versus warm shower prior to gentle ROM, stretching, massage. He may benefit from regular topical Arnica versus Biofreeze versus Voltaren 2-3 times daily and if needed at bedtime. If symptoms persist or progress may need to consider epidural steroid injection. 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 Valadez Assessment & Plan (05/17/2024 7:29 PM EDT): He is interested in surgical correction and is awaiting neurosurgical consult with Dr. Rene Lovell on 05/18/2024. Anxiety 10/22/2023 Assessment & Plan (05/16/2024 9:27 AM EDT): Encouraged to improve his stress and anxiety management strategies by meditating, listening to relaxation tape and consider formal psychotherapy. Assessment & Plan (10/22/2023 10:35 AM EST): Encouraged to improve his stress and anxiety management strategies by meditating, listening to relaxation tape and consider formal psychotherapy. Needle phobia 04/16/2022 Assessment & Plan (04/19/2022 9:31 PM EDT): Due to ongoing anxiety related to subcutaneous Enbrel weekly injections and request for switching to oral medications I provided him with pamphlet on Arava (leflunomide) and Xeljanz (tofacitinib). I briefly explained the mode of action of each medication and most frequent side effects including but not limited to increased risk of infection, GI abnormalities, skin rashes, liver function abnormalities etc. I have stressed need for close monitoring explaining that there is no guarantee that either of those medications will be working as successfully as Enbrel. Need for immunization against influenza 08/14/20 21 Lateral epicondylitis of right elbow 05/13/2021 Assessment & Plan (05/25/2021 10:09 AM EDT): Avoid overuse, injuries and falls. Gentle stretching and muscle strengthening examples of appropriate exercises with pictures and written descriptions of proper technique printed today for home use. Consider using lateral elbow pad for extended activities. If not better or worse formal PT-offered today but patient prefers to try first home exercise program. Advice given about COVID-19 virus by telephone 1 01/10/2020 Assessment & Plan (04/19/2022 9:33 PM EDT): I reviewed with Emiliano that due to his chronic immunosuppression with Enbrel he should get COVID-19 vaccine booster dose preferably at least 2 weeks prior to considered switching from Enbrel to either Arava or Xeljanz. No need to miss any Enbrel subcutaneous injections while receiving COVID-19 booster vaccine dose. Assessment & Plan (11/09/2020 4:09 PM EST): Continue social distancing, wearing face mask whenever leaving household and diligent hand hygiene. Patient was interested in my opinion regarding availability and his eligibility for COVID-19 vaccine. I explained to him that unfortunately there are no data regarding safety of COVID-19 vaccines in patients with systemic rheumatic diseases treated with biologic modifying antirheumatic medications therefore my advice is to hold on vaccination until more information becomes available regarding their safety. Acquired hypothyroidism 08/02/2020 Assessment & Plan (11/09/2020 4:04 PM EST): Carefully continue thyroid hormone replacement therapy as prescribed and close follow-up with prescribing physician as scheduled. Assessment & Plan (08/05/2020 7:59 PM EDT): Carefully continue thyroid hormone replacement therapy as prescribed and close follow-up with prescribing physician as scheduled. Rotator cuff disorder, left 01/19/2019 Assessment & Plan (06/12/2023 9:23 AM EDT): Avoid repetitive pulling, pushing, heavy lifting. Use warm packs versus warm shower prior to gentle, regular exercises-examples of exercises with pictures and detailed instructions printed for home use today. If not better or worse may need to consider formal PT and/or local steroid injection. Assessment & Plan (05/24/2019 11:45 PM EDT): Joint protection, energy conservation. Gentle, regular exercise routine after warm pack or warm shower. Avoid heavy lifting, repetitive pulling or pushing and extended holding arms above the shoulder level. Topical cream versus patch 2-3 times daily or at least at bedtime x 3 weeks. Call if worse or with questions Assessment & Plan (01/23/2019 11:43 AM EST): Joint protection, energy conservation. Gentle, regular exercise routine after warm pack or warm shower. Avoid heavy lifting, repetitive pulling or pushing and extended holding arms above the shoulder level. Topical cream versus patch 2-3 times daily or at least at bedtime x 3 weeks. Call if worse or with questions Acute pain of left shoulder 09/29/2018 Chronic right shoulder pain 2018 Psoriatic arthritis 11/25/2017 Assessment & Plan (04/24/2025 10:38 AM EDT): Clinically skin disease appears more active particularly on posterior neck and face although the joint exam remains quite stable. He completed 3 months of oral Xeljanz (tofacitinib) but reports worse skin appearance and is interested in returning to weekly subcutaneous Enbrel that he stopped in February 2024 because he believes it may have been contributed to development of L phrenic nerve paralysis. While on Enbrel both joint and skin disease were much better controlled and he realized that getting weekly injection is a acceptable [place] to pay for satisfactory disease control that he could not achieve with oral medication= Xeljanz taken daily. Despite taking weekly subcutaneous Enbrel since early December 2024 until now his skin disease is no better and he is ready to switch it to a different biologic drug modifying antirheumatic therapy-I provided him with pamphlets on Cosentyx (secukinumab), Taltz (ixekizumab) and Tremfya (guselkumab) to review and let me know his preference so I can put prescription for approval by his insurance. Gentle, regular exercise routine. Continue close follow-up with neurosurgeon as scheduled. Avoid sick contacts and follow diligent hand hygiene Call with problems or questions otherwise return in 16 weeks. Assessment & Plan (12/20/2024 10:23 PM EST): Clinically skin disease appears more active particularly on posterior neck and face although the joint exam remains quite stable. He completed 3 months of oral Xeljanz (tofacitinib) but reports worse skin appearance and is interested in returning to weekly subcutaneous Enbrel that he stopped in February 2024 because he believes it may have been contributed to development of L phrenic nerve paralysis. While on Enbrel both joint and skin disease were much better controlled and he realized that getting weekly injection is a acceptable [place] to pay for satisfactory disease control that he could not achieve with oral medication= Xeljanz taken daily. Gentle, regular exercise routine. Continue close follow-up with neurosurgeon as scheduled. Avoid sick contacts and follow diligent hand hygiene Call with problems or questions otherwise return in 16 weeks. Assessment & Plan (08/25/2024 1:01 PM EDT): Clinically skin disease appears more active particularly on posterior neck although the joint exam remains quite stable. He is interested in taking a different DMARD than Enbrel that he believes may have been contributing to development of L phrenic nerve paralysis. He prefers to take oral medication therefore I gave him literature on Rinvoq (upadacitinib) taken daily and ask to check his insurance formulary in addition to a new set of lab work. I requested update on his vaccination status regarding pneumonia, yearly influenza, Shingrix at least 14 days prior to starting Rinvoq (upadacitinib) Gentle, regular exercise routine. Continue close follow-up with neurosurgeon as scheduled. Avoid sick contacts and follow diligent hand hygiene Call with problems or questions otherwise return in 10 weeks. Assessment & Plan (07/14/2024 12:37 PM EDT): Clinically skin disease appears more active particularly on posterior neck although the joint exam remains quite stable. He is interested in taking a different DMARD than Enbrel that he believes may have been contributing to development of L phrenic nerve paralysis. He prefers to take oral medication therefore I gave him literature on Rinvoq (upadacitinib) taken daily and ask to check his insurance formulary in addition to a new set of lab work. Gentle, regular exercise routine. Continue close follow-up with neurosurgeon as scheduled. Avoid sick contacts and follow diligent hand hygiene Call with problems or questions. Assessment & Plan (05/17/2024 7:25 PM EDT): Get labs monitoring safety of therapy today and prior to next visit - standing orders in [facility]. Carefully monitor his disease as he decided to stop Enbrel believing that it may have been contributing to development of L phrenic nerve paralysis. Gentle, regular exercise routine. Continue close follow-up with neurosurgeon as scheduled. Avoid sick contacts and follow diligent hand hygiene Call with problems or questions. Assessment & Plan (10/22/2023 10:14 AM EST): Get labs monitoring safety of therapy today and prior to next visit - standing orders in [facility]. Carefully continue current medications as prescribed. Joint protection, energy conservation. Gentle, regular exercise routine. Hold Enbrel whenever feeling sick, running fever or taking antibiotics. Make sure to wait at least 48 hours after last dose of antibiotic to make sure that the symptoms do not return before restarting regular weekly Enbrel schedule. Avoid sick contacts and follow diligent hand hygiene Call with problems or questions. Assessment & Plan (06/12/2023 9:01 AM EDT): Get labs monitoring safety of therapy today and prior to next visit - standing orders in [facility]. Carefully continue current medications as prescribed. Joint protection, energy conservation. Gentle, regular exercise routine. Hold Enbrel whenever feeling sick, running fever or taking antibiotics. Make sure to wait at least 48 hours after last dose of antibiotic to make sure that the symptoms do not return before restarting regular weekly Enbrel schedule. Avoid sick contacts and follow diligent hand hygiene Call with problems or questions. Assessment & Plan (12/21/2022 5:09 PM EST): Get labs monitoring safety of therapy today and prior to next visit - standing orders in [facility]. Carefully continue current medications as prescribed. Joint protection, energy conservation. Gentle, regular exercise routine. Hold Enbrel whenever feeling sick, running fever or taking antibiotics. Make sure to wait at least 48 hours after last dose of antibiotic to make sure that the symptoms do not return before restarting regular weekly Enbrel schedule. Avoid sick contacts and follow diligent hand hygiene Call with problems or questions. Assessment & Plan (04/19/2022 9:27 PM EDT): Get labs monitoring safety of therapy prior to next visit - standing orders in [facility]. Carefully continue current medications as prescribed. Joint protection, energy conservation. Gentle, regular exercise routine. Hold Enbrel whenever feeling sick, running fever or taking antibiotics. Make sure to wait at least 48 hours after last dose of antibiotic to make sure that the symptoms do not return before restarting regular weekly Enbrel schedule. Avoid sick contacts and follow diligent hand hygiene Call with problems or questions. Assessment & Plan (11/25/2021 10:20 AM EST): Get labs monitoring safety of therapy today. Carefully continue current medications as prescribed. Hold Enbrel whenever feeling sick, running fever or taking antibiotics. Make sure to wait at least 48 hours after last dose of antibiotic to make sure that the symptoms do not return before restarting regular weekly Enbrel schedule. Avoid sick contacts and follow diligent hand hygiene Get labs monitoring prior to next visit. Call with problems or questions. Assessment & Plan (08/14/2021 8:13 AM EDT): Get labs monitoring safety of therapy today. Carefully continue current medications as prescribed. Hold Enbrel whenever feeling sick, running fever or taking antibiotics. Make sure to wait at least 48 hours after last dose of antibiotic to make sure that the symptoms do not return before restarting regular weekly Enbrel schedule. Avoid sick contacts and follow diligent hand hygiene Get labs monitoring prior to next visit. Call with problems or questions. Assessment & Plan (05/13/2021 8:26 AM EDT): Get labs monitoring safety of therapy today. Carefully continue current medications as prescribed. Hold Enbrel whenever feeling sick, running fever or taking antibiotics. Make sure to wait at least 48 hours after last dose of antibiotic to make sure that the symptoms do not return before restarting regular weekly Enbrel schedule. Avoid sick contacts and follow diligent hand hygiene Get labs monitoring prior to next visit. Call with problems or questions. Assessment & Plan (11/09/2020 4:04 PM EST): Get labs monitoring safety of therapy today. Carefully continue current medications as prescribed. Hold Enbrel whenever feeling sick, running fever or taking antibiotics. Make sure to wait at least 48 hours after last dose of antibiotic to make sure that the symptoms do not return before restarting regular weekly Enbrel schedule. Avoid sick contacts and follow diligent hand hygiene Get labs monitoring prior to next visit. Call with problems or questions. Assessment & Plan (08/02/2020 11:15 AM EDT): Get labs monitoring safety of therapy today. Carefully continue current medications as prescribed. Hold Enbrel whenever feeling sick, running fever or taking antibiotics. Make sure to wait at least 48 hours after last dose of antibiotic to make sure that the symptoms do not return before restarting regular weekly Enbrel schedule. Avoid sick contacts and follow diligent hand hygiene Get labs monitoring prior to next visit. Call with problems or questions. Assessment & Plan (05/07/2020 9:14 AM EDT): Get labs monitoring safety of therapy today. Carefully continue current medications as prescribed. Hold Enbrel whenever feeling sick, running fever or taking antibiotics. Make sure to wait at least 48 hours after last dose of antibiotic to make sure that the symptoms do not return before restarting regular weekly Enbrel schedule. Avoid sick contacts and follow diligent hand hygiene Get labs monitoring prior to next visit. Call with problems or questions. Assessment & Plan (11/25/2019 8:31 AM EST): Carefully continue current medications as prescribed. Hold Enbrel whenever feeling sick, running fever or taking antibiotics. Make sure to wait at least 48 hours after last dose of antibiotic to make sure that the symptoms do not return before restarting regular weekly Enbrel schedule. Avoid sick contacts and follow diligent hand hygiene Get labs monitoring prior to next visit. Call with problems or questions. Assessment & Plan (09/06/2019 3:49 PM EDT): Carefully continue current medications as prescribed. Hold Enbrel whenever feeling sick, running fever or taking antibiotics. Make sure to wait at least 48 hours after last dose of antibiotic to make sure that the symptoms do not return before restarting regular weekly Enbrel schedule. Avoid sick contacts and follow diligent hand hygiene particularly in view of mild leukopenia. Get labs monitoring prior to next visit. Call with problems or questions. Assessment & Plan (05/24/2019 11:44 PM EDT): Remain on current medications carefully. Hold Enbrel whenever feeling sick, running fever or taking antibiotics. Avoid sick contacts and follow diligent hand hygiene particularly in view of mild leukopenia. Get labs monitoring prior to next visit. Call with problems or questions. Assessment & Plan (01/23/2019 11:41 AM EST): Remain on current medications carefully. Hold Enbrel whenever feeling sick, running fever or taking antibiotics. Avoid sick contacts and follow diligent hand hygiene particularly in view of mild leukopenia. Get labs monitoring prior to next visit. Call with problems or questions. Gastroesophageal reflux disease 11/25/2017 Assessment & Plan (04/24/2025 10:01 AM EDT): Avoid late, large, spicy meals. Keep headboard elevated at 45 angle for nighttime. Carefully continue Prilosec 20 mg every other day as prescribed Assessment & Plan (12/19/2024 3:20 PM EST): Avoid late, large, spicy meals. Keep headboard elevated at 45 angle for nighttime. Carefully continue Prilosec 20 mg every other day as prescribed Assessment & Plan (08/25/2024 11:24 AM EDT): Avoid late, large, spicy meals. Keep headboard elevated at 45 angle for nighttime. Carefully continue Prilosec 20 mg every other day as prescribed Assessment & Plan (07/14/2024 12:37 PM EDT): Avoid late, large, spicy meals. Keep headboard elevated at 45 angle for nighttime. Carefully continue Prilosec 20 mg every other day as prescribed Assessment & Plan (05/16/2024 9:27 AM EDT): Avoid late, large, spicy meals. Keep headboard elevated at 45 angle for nighttime. Assessment & Plan (10/22/2023 10:15 AM EST): Avoid late, large, spicy meals. Keep headboard elevated at 45 angle for nighttime. Assessment & Plan (06/12/2023 9:02 AM EDT): Avoid late, large, spicy meals. Keep headboard elevated at 45 angle for nighttime. Assessment & Plan (12/17/2022 11:53 AM EST): Avoid late, large, spicy meals. Keep headboard elevated at 45 angle for nighttime. Continue omeprazole daily Assessment & Plan (04/16/2022 10:20 AM EDT): Avoid late, large, spicy meals. Keep headboard elevated at 45 angle for nighttime. Assessment & Plan (11/25/2021 10:20 AM EST): Avoid late, large, spicy meals. Keep headboard elevated at 45 angle for nighttime. Assessment & Plan (08/14/2021 8:14 AM EDT): Avoid late, large, spicy meals. Keep headboard elevated at 45 angle for nighttime. Assessment & Plan (05/13/2021 8:27 AM EDT): Avoid late, large, spicy meals. Keep headboard elevated at 45 angle for nighttime. Assessment & Plan (11/09/2020 4:04 PM EST): Avoid late, large, spicy meals. Keep headboard elevated at 45 angle for nighttime. Assessment & Plan (08/02/2020 11:16 AM EDT): Avoid late, large, spicy meals. Keep headboard elevated at 45 angle for nighttime. Assessment & Plan (05/07/2020 8:58 AM EDT): Avoid late, large, spicy meals. Keep headboard elevated at 45 angle for nighttime. Assessment & Plan (11/25/2019 8:32 AM EST): Avoid late, large, spicy meals. Keep headboard elevated at 45 angle for nighttime. Assessment & Plan (09/06/2019 3:49 PM EDT): Avoid late, large, spicy meals. Keep headboard elevated at 45 angle for nighttime. Assessment & Plan (05/24/2019 11:44 PM EDT): Avoid late, large, spicy meals. Keep headboard elevated at 45 angle for nighttime. Assessment & Plan (01/23/2019 11:42 AM EST): Avoid late, large, spicy meals. Keep headboard elevated at 45 angle for nighttime. Spinal stenosis at L4-L5 level 11/25/2017 Assessment & Plan (07/14/2024 12:14 PM EDT): Chronic low back pain that is only tolerable with chronic opiate use. Encouraged to use warm pack alternating with ice pack and gentle stretching. Consider massage versus warm pool exercise program Assessment & Plan (05/16/2024 9:17 AM EDT): Chronic low back pain that is only tolerable with chronic opiate use. Encouraged to use warm pack alternating with ice pack and gentle stretching. Consider massage versus warm pool exercise program Assessment & Plan (10/22/2023 10:35 AM EST): Chronic low back pain that is only tolerable with chronic opiate use. Encouraged to use warm pack alternating with ice pack and gentle stretching. 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 Build up regular exercise routine up to the goal of 30-45 minutes daily. Monitor for increasing shortness of breath, reduced respiratory drive, increasing constipation Assessment & Plan (12/19/2024 3:20 PM EST): Take exactly as prescribed, try to limit frequency by employing non-for pharmacologic measures such as topical creams, warm packs, patches, regular relaxation/mediation/positive imagery sessions etc. Build up regular exercise routine up to the goal of 30-45 minutes daily. Monitor for increasing shortness of breath, reduced respiratory drive, increasing constipation Assessment & Plan (08/25/2024 11:24 AM EDT): Take exactly as prescribed, try to limit frequency by employing non-for pharmacologic measures such as topical creams, warm packs, patches, regular relaxation/mediation/positive imagery sessions etc. Build up regular exercise routine up to the goal of 30-45 minutes daily. Monitor for increasing shortness of breath, reduced respiratory drive, increasing constipation Assessment & Plan (07/14/2024 12:14 PM EDT): Take exactly as prescribed, try to limit frequency by employing non-for pharmacologic measures such as topical creams, warm packs, patches, regular relaxation/mediation/positive imagery sessions etc. Build up regular exercise routine up to the goal of 30-45 minutes daily. Monitor for increasing shortness of breath, reduced respiratory drive, increasing constipation Assessment & Plan (05/16/2024 9:19 AM EDT): Take exactly as prescribed, try to limit frequency by employing non-for pharmacologic measures such as topical creams, warm packs, patches, regular relaxation/mediation/positive imagery sessions etc. Build up regular exercise routine up to the goal of 30-45 minutes daily. Monitor for increasing shortness of breath, reduced respiratory drive, increasing constipation Assessment & Plan (10/22/2023 10:15 AM EST): Take exactly as prescribed, try to limit frequency by employing non-for pharmacologic measures such as topical creams, warm packs, patches, regular relaxation/mediation/positive imagery sessions etc. Build up regular exercise routine up to the goal of 30-45 minutes daily. Monitor for increasing shortness of breath, reduced respiratory drive, increasing constipation Assessment & Plan (06/12/2023 9:03 AM EDT): Take exactly as prescribed, try to limit frequency by employing non-for pharmacologic measures such as topical creams, warm packs, patches, regular relaxation/mediation/positive imagery sessions etc. Build up regular exercise routine up to the goal of 30-45 minutes daily. Monitor for increasing shortness of breath, reduced respiratory drive, increasing constipation Assessment & Plan (12/17/2022 11:51 AM EST): Take exactly as prescribed, try to limit frequency by employing non-for pharmacologic measures such as topical creams, warm packs, patches, regular relaxation/mediation/positive imagery sessions etc. Build up regular exercise routine up to the goal of 30-45 minutes daily. Monitor for increasing shortness of breath, reduced respiratory drive, increasing constipation Assessment & Plan (04/16/2022 10:20 AM EDT): Take exactly as prescribed, try to limit frequency by employing non-for pharmacologic measures such as topical creams, warm packs, patches, regular relaxation/mediation/positive imagery sessions etc. Build up regular exercise routine up to the goal of 30-45 minutes daily. Monitor for increasing shortness of breath, reduced respiratory drive, increasing constipation Assessment & Plan (11/25/2021 10:20 AM EST): Take exactly as prescribed, try to limit frequency by employing non-for pharmacologic measures such as topical creams, warm packs, patches, regular relaxation/mediation/positive imagery sessions etc. Build up regular exercise routine up to the goal of 30-45 minutes daily. Monitor for increasing shortness of breath, reduced respiratory drive, increasing constipation Assessment & Plan (08/14/2021 8:14 AM EDT): Take exactly as prescribed, try to limit frequency by employing non-for pharmacologic measures such as topical creams, warm packs, patches, regular relaxation/mediation/positive imagery sessions etc. Build up regular exercise routine up to the goal of 30-45 minutes daily. Monitor for increasing shortness of breath, reduced respiratory drive, increasing constipation Assessment & Plan (05/13/2021 8:27 AM EDT): Take exactly as prescribed, try to limit frequency by employing non-for pharmacologic measures such as topical creams, warm packs, patches, regular relaxation/mediation/positive imagery sessions etc. Build up regular exercise routine up to the goal of 30-45 minutes daily. Monitor for increasing shortness of breath, reduced respiratory drive, increasing constipation Assessment & Plan (11/09/2020 4:05 PM EST): Take exactly as prescribed, try to limit frequency by employing non-for pharmacologic measures such as topical creams, warm packs, patches, regular relaxation/mediation/positive imagery sessions etc. Build up regular exercise routine up to the goal of 30-45 minutes daily. Monitor for increasing shortness of breath, reduced respiratory drive, increasing constipation Assessment & Plan (08/02/2020 11:16 AM EDT): Take exactly as prescribed, try to limit frequency by employing non-for pharmacologic measures such as topical creams, warm packs, patches, regular relaxation/mediation/positive imagery sessions etc. Build up regular exercise routine up to the goal of 30-45 minutes daily. Monitor for increasing shortness of breath, reduced respiratory drive, increasing constipation Assessment & Plan (05/07/2020 8:59 AM EDT): Take exactly as prescribed, try to limit frequency by employing non-for pharmacologic measures such as topical creams, warm packs, patches, regular relaxation/mediation/positive imagery sessions etc. Build up regular exercise routine up to the goal of 30-45 minutes daily. Monitor for increasing shortness of breath, reduced respiratory drive, increasing constipation Assessment & Plan (11/25/2019 8:32 AM EST): Take exactly as prescribed, try to limit frequency by employing non-for pharmacologic measures such as topical creams, warm packs, patches, regular relaxation/mediation/positive imagery sessions etc. Build up regular exercise routine up to the goal of 30-45 minutes daily. Monitor for increasing shortness of breath, reduced respiratory drive, increasing constipation Assessment & Plan (09/06/2019 3:50 PM EDT): Take exactly as prescribed, try to limit frequency by employing non-for pharmacologic measures such as topical creams, warm packs, patches, regular relaxation/mediation/positive imagery sessions etc. Build up regular exercise routine up to the goal of 30-45 minutes daily. Monitor for increasing shortness of breath, reduced respiratory drive, increasing constipation Assessment & Plan (05/24/2019 11:45 PM EDT): Take exactly as prescribed, try to limit frequency by employing non-for pharmacologic measures such as topical creams, warm packs, patches, regular relaxation/mediation/positive imagery sessions etc. Build up regular exercise routine up to the goal of 30-45 minutes daily. Monitor for increasing shortness of breath, reduced respiratory drive, increasing constipation Assessment & Plan (01/23/2019 11:44 AM EST): Take exactly as prescribed, try to limit frequency by employing non-for pharmacologic measures such as topical creams, warm packs, patches, regular relaxation/mediation/positive imagery sessions etc. Build up regular exercise routine up to the goal of 30-45 minutes daily. Monitor for increasing shortness of breath, reduced respiratory drive, increasing constipation Resolved Problems Problem Noted Date Diagnosed Date Resolved Date Long-term current use of tofacitinib 12/19/2024 04/24/2025 Assessment & Plan (12/20/2024 10:26 PM EST): Carefully continue as long as he does not have fevers or require antibiotics. If sick hold Xeljanz. Monitor for any weakness, abdominal pain, nausea, vomiting, diarrhea, unusual skin discoloration etc. If taking antibiotics complete entire course of antibiotics and wait at least 48 hours after last dose to make sure that infection does not recur before restarting regular daily Xeljanz. Make sure to inform any new MD, PA, [employer] SUPERVISOR about chronic therapy with Xeljanz particularly in emergency situations. Sprain of left rotator cuff capsule 01/19/2019 01/19/2019 On etanercept therapy 11/25/20172023 Assessment & Plan (05/17/2024 7:28 PM EDT): At this time he is off of Enbrel since February 2024 and is not sure whether he will restart it. 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 Make sure to inform any new MD, [employer] SUPERVISOR or PA about chronic immunosuppression with Enbrel especially in emergency situations. Avoid sick contacts. Regular laboratory and office visits for monitoring safety as scheduled. Assessment & Plan (10/22/2023 10:15 AM EST): Hold Enbrel (etanercept) whenever feeling sick, running fever or taking antibiotics. Complete entire course of antibiotics and wait at least 48 hours after the last dose before returning to its usual weekly dosing schedule. Make sure to inform any new MD, [employer] SUPERVISOR or PA about chronic immunosuppression with Enbrel especially in emergency situations. Avoid sick contacts. Regular laboratory and office visits for monitoring safety as scheduled. Assessment & Plan (06/12/2023 9:03 AM EDT): Hold Enbrel (etanercept) whenever feeling sick, running fever or taking antibiotics. Complete entire course of antibiotics and wait at least 48 hours after the last dose before returning to its usual weekly dosing schedule. Make sure to inform any new MD, [employer] SUPERVISOR or PA about chronic immunosuppression with Enbrel especially in emergency situations. Avoid sick contacts. Regular laboratory and office visits for monitoring safety as scheduled. Assessment & Plan (12/21/2022 5:10 PM EST): Hold Enbrel (etanercept) whenever feeling sick, running fever or taking antibiotics. Complete entire course of antibiotics and wait at least 48 hours after the last dose before returning to its usual weekly dosing schedule. Make sure to inform any new MD, [employer]OR or PA about chronic immunosuppression with Enbrel especially in emergency situations. Avoid sick contacts. Regular laboratory and office visits for monitoring safety as scheduled. Assessment & Plan (04/16/2022 10:20 AM EDT): Make sure to inform any new MD, [employer] SUPERVISOR or PA about chronic immunosuppression with Enbrel especially in emergency situations. Avoid sick contacts. Regular laboratory and office visits for monitoring safety as scheduled. Assessment & Plan (11/25/2021 10:20 AM EST): Make sure to inform any new MD, [employer] SUPERVISOR or PA about chronic immunosuppression with Enbrel especially in emergency situations. Avoid sick contacts. Regular laboratory and office visits for monitoring safety as scheduled. Assessment & Plan (08/14/2021 8:14 AM EDT): Make sure to inform any new MD, [employer] SUPERVISOR or PA about chronic immunosuppression with Enbrel especially in emergency situations. Avoid sick contacts. Regular laboratory and office visits for monitoring safety as scheduled. Assessment & Plan (05/13/2021 8:26 AM EDT): Make sure to inform any new MD, [employer] SUPERVISOR or PA about chronic immunosuppression with Enbrel especially in emergency situations. Avoid sick contacts. Regular laboratory and office visits for monitoring safety as scheduled. Assessment & Plan (11/09/2020 4:04 PM EST): Make sure to inform any new MD, [employer] SUPER[employer]OR or PA about chronic immunosuppression with Enbrel especially in emergency situations. Avoid sick contacts. Regular laboratory and office visits for monitoring safety as scheduled. Assessment & Plan (08/02/2020 11:16 AM EDT): Make sure to inform any new MD, [employer] SUPER[employer]OR or PA about chronic immunosuppression with Enbrel especially in emergency situations. Avoid sick contacts. Regular laboratory and office visits for monitoring safety as scheduled. Assessment & Plan (05/07/2020 9:00 AM EDT): Make sure to inform any new MD, [employer]PER[employer]OR or PA about chronic immunosuppression with Enbrel especially in emergency situations. Avoid sick contacts. Regular laboratory and office visits for monitoring safety as scheduled. Assessment & Plan (11/25/2019 8:32 AM EST): Make sure to inform any new MD, [employer] SUPERVISOR or PA about chronic immunosuppression with Enbrel especially in emergency situations. Avoid sick contacts. Regular laboratory and office visits for monitoring safety as scheduled. Assessment & Plan (09/06/2019 3:50 PM EDT): Make sure to inform any new MD, [employer] SUPER[employer]OR or PA about chronic immunosuppression with Enbrel especially in emergency situations. Avoid sick contacts. Regular laboratory and office visits for monitoring safety as scheduled. Assessment & Plan (05/24/2019 11:45 PM EDT): Make sure to inform any new MD, [employer] SUPER[employer]OR or PA about chronic immunosuppression with Enbrel especially in emergency situations. Regular laboratory and office visits for monitoring safety as scheduled. Assessment & Plan (01/23/2019 11:44 AM EST): Make sure to inform any new MD, [employer] SUPERVISOR or PA about chronic immunosuppression with Enbrel especially in emergency situations. Regular laboratory and office visits for monitoring safety as scheduled. Encounter for monitoring leflunomide therapy 8 2018 On statin therapy 11/25/2017 11/25/2021 Assessment & Plan (05/13/2021 8:26 AM EDT): Monitor for muscle tenderness, swelling and weakness Assessment & Plan (11/09/2020 4:05 PM EST): Monitor for muscle tenderness, swelling and weakness Assessment & Plan (01/23/2019 11:45 AM EST): Monitor for muscle tenderness, swelling and weakness Encounters Date Type Department Care Team Description 07/03/2025 Refill [facility] Rheumatology [address] [place] [address] Thelma Anna MD Medication Refill 06/05/[address] [facility] [address] [place] [phone] [place], [facility] [employer] initial assessment 06/02/[address] [address] Gabrielle Balderrama RPH 05/31/2025 Orders Only [facility] Rheumatology [address] [place] [address] [place] [address] Thelma Anna MD Psoriatic arthritis (Primary Dx) 05/31/2025 Telephone [facility] Rheumatology [address] [place] [address] [place] [address] Thelma Anna MD change medications 05/10/2025 Telephone [facility] Rheumatology [address] [place] [address] [place] [address] Thelma Anna MD Medication Management from Last 3 Months Immunizations Immunization Administration Dates Next Due Influenza Quadrivalent Prese rvative Free IM 01/21/2024,09/05/2022,08/14/2021,2019,08/25/2018 Social History Tobacco Use Types Packs/Day Years Used Date Smoking Tobacco: Never Smokeless Tobacco: Never Tobacco Cessation:Counseling Given: Not Answered Alcohol Use Standard Drinks/Week Comments No 0 [...] on file Sexual Orientation Not on file Last Filed Vital Signs Vital Sign Reading Time Taken Comments Blood Pressure 124/74 04/24/2025 10:00 AM EDT Pulse 72 04/24/2025 10:00 AM EDT Temperature - - Respiratory Rate - - Oxygen Saturation 99% 04/24/2025 10:00 AM EDT Inhaled Oxygen Concentration - - Weight 81.6 kg (180 lb) 04/24/2025 10:00 AM EDT Height 175.3 cm (5' 9 ) 04/24/2025 10:00 AM EDT Body Mass Index 26.58 04/24/2025 10:00 AM EDT Plan of Treatment Upcoming Encounters Date Type Department Care Team (Late st Contact Info) Description 08/24/2025 11:00 AM EDT Office Visit [facility] Rheumatology [address] [place] [address] Thelma Anna MD 22 [facility], [address] [place] [address] Health Maintenance Due Date Last Done Comments TSH LEVEL 1961 DEPRESSION SCREENING 1973 HIV ONE-TIME SCREENING (18-65 YEARS) 1979 PNEUMOCOCCAL VACCINES (50+ years) (1 of 2 - PCV) 1980 COLOGUARD 2006 COLONOSCOPY 2006 COLORECTAL CANCER SCREENING 2006 FIT TEST 2006 FOBT 2006 SIGMOIDOSCOPY 2006 VIRTUAL COLONOSCOPY 2006 RSV VACCINE (1 - Risk 60-74 years 1-dose series) 2021 INFLUENZA VACCINE (#1) 2025 , 01/21/2024, 09/05/2022, Additional history exists COVID-19 VACCINE ( season) 2025 09/05/2022, 10/30/2021, 03/25/2021, Additional history exists SCREENING FOR DIABETES 08/25/2027 08/25/2024 Adult Td,Tdap Booster 09/07/2028 09/07/2018 LIPID PANEL 08/25/2029 08/25/2024 HEPATITIS C SCREENING Completed 08/25/2024 ZOSTER VACCINES Completed 02/01/2025, 09/12/2024 SMOKING STATUS SCREENING (Once After 26 Yrs) Completed 04/24/2025 HEPATITIS A VACCINES Aged Out No long er eligible based on patient's age to complete this topic HIB VACCINES Aged Out No longer eligi ble based on patient's age to complete this topic MENINGOCOCCAL VACCINES (ACWY) Aged Out No longer eligible based on patient's age to complete this topic MENINGOCOCCAL VACCINES (B) Aged Out N o longer eligible based on patient's age to complete this topic Medical Devices Not on file Procedures Procedure Name Priority Date/Time Associated Diagnosis Comments LIPID PANEL Routine 08/25/2024 11:42 AM EDT Psoriatic arthritis HEPATITIS C ANTIBODY, QUALITATIVE Routine 08/25/2024 11:42 AM EDT Psoriatic arthritis Need for hepatitis C screening test from Last 3 Months or Most Recently Relevant to Health Maintenance Results * Hepatitis C antibody, qualitative (08/25/2024 11:42 AM EDT) HCV NON-REACTIV E NON-REACTI VE [facility] Blood 08/25/2024 11:4 2 AM EDT 08/25/2024 11:48 AM EDT us Thelma Anna MD LAB BLOOD ORDERABLES Fin al Result [address] [address] * (ABNORMAL) Lipid panel (08/25/2024 11:42 AM EDT) HDL 69 mg/dL [facility] Comment: Interpretation <40 mg/dL: Low HDL cholesterol (major risk factor for CHD) Greater than or equal to 60 mg/dL: High HDL cholesterol ( negative risk factor for CHD) HDL - cholesterol is affected by a number of factors, e.g. smoking, excerise, hormones, sex and age. CHOLESTEROL 239 0 - 240 mg/dL [facility] TRIGLYCERIDES 77 30 - 160 mg/dL [facility] LDL 155(H) 50 - 129 mg/dL [facility] Comment: LDL levels in terms of risk for coronary heart disease: <100 mg/dL: Optimal 100-129 mg/dL: Near or above optimal 130-159 mg/dL: Borderline high 160-189 mg/dL: High >190 mg/dL: Very High CARDIAC RISK RATIO 3.5 3.4 - 5.0 [facility] Blood 08/25/2024 11:4 2 AM EDT 08/25/2024 11:48 AM EDT us Thelma Anna MD LAB BLOOD ORDERABLES Fin al Result [facility] [address] [place] [address] from Last 3 Months or Most Recently Relevant to Health Maintenance Insurance [facility] MEDICARE PART A & B [id number] MEDICARE PART A & [facility] [place] [facility] & [place] & [facility] & B Care Teams Data Officer Relationship Specialty Start Date End Date Michelle Richardson PA [address] [place] [phone] [email or web address] PCP - General Physician Advertiser 06/12/23 Thelma Anna MD [address] [place] [address], [facility] [address] [place] [address] [email or web address] Historical LMR Provider 09/10/17 Additional Source Comments The information contained in this document represents components of the legal health record. It is not the complete legal health record.[facility]
--- OUTSIDE RECORDS SUMMARY | 2025-08-09 17:21 | XMS_ITS | Encounter Summary ---
Author Organization [facility] Address [address] [place] [phone] Phone Care Team Providers Care Platform Power Technician Name Role Phone Thelma Anna MD Unavailable [phone] Ketan Hoffmann MD Unavailable [phone] Duc Burch Primary Care Provider [phone] Michelle Richardson Primary Care Provider [phone] Encounter Details Date Type Department Care Team (Late st Contact Info) Description 01/18/2020 Procedure Pass [address] [place] [address] Social History Tobacco Use Types Packs/Day Years [...] on file documented as of this encounter Last Filed Vital Signs Vital Sign Reading Time Taken Comments Blood Pressure - - Pulse - - Temperature - - Respiratory Rate - - Oxygen Saturation - - Inhaled Oxygen Concentration - - Weight 79.4 kg (175 lb) 01/18/2020 11:29 AM EST Height 175.3 cm (5' 9 ) 01/18/2020 11:29 AM EST Body Mass Index 25.84 01/18/2020 11:29 AM EST documented in this encounter Plan of Treatment Upcoming Encounters Date Type Department Care Team (Late st Contact Info) Description 08/24/2025 11:00 AM EDT Office Visit [facility] Rheumatology [address] [place] [address] Thelma Anna MD 22 [facility] [address] [place] [address] [email or web address] documented as of this encounter Visit Diagnoses Not on filedocumented in this encounter Care Teams Platform Power Technician Relationship Specialty Start Date End Date Duc Burch PA [address] [address] [email or web address] [email or web address] - General Unknown Provider Specialty 09/29/18 06/11/23 Michelle Richardson PA [address] [place] [phone] [email or web address] [email or web address] - General Physician Telephone Diaphragm Assembler 06/12/23 Thelma Anna MD [address] [address] [email or web address] Historical LMR Provider 09/10/17 Ketan Hoffmann MD [address] [address] Historical LMR Provider 09/10/17 2 documented as of this encounter Additional Source Comments The information contained in this document represents components of the legal health record. It is not the complete legal health record.[facility]
== END 2025-08-09 13:33 | disposition home or self-care (01) ==
LOC: HO.HAP 13:32
PROVIDERS: Visit Provider Physician Assistant Medical
DX: Z46.1 Encounter for fitting and adjustment of hearing aid (principal); H90.3 Sensorineural hearing loss, bilateral
CPT/HCPCS: V5266

== ENCOUNTER 2025-09-25 13:27 | Outpatient (AMB) | payer MEDICARE, MEDICAID, SELFPAY ==
--- NOTE | 2025-09-25 13:41 | A.OFFVIS_ITS ---
Vital Signs 09/25/25 13:42 Height 5 ft 7 in Weight 178 lb BMI 27.9 BP 122/82 Blood Pressure Location Lt brachial Position Sitting Respiration 16 Pulse 71 Pulse Source Pulse Oximeter Pulse Oximetry (%) 97 Oxygen Delivery Method Room Air Intake Visit Reasons: CHRONIC PAIN Interactive Marketing Strategist Required: No Allergies carisoprodol (From [facility]) Allergy (Severe, Verified 09/25/25 13:44) THROAT SWELLING methotrexate (METHOTREXATE) Allergy (Severe, Verified 09/25/25 13:44) SEVERE COUGH, cough monosodium glutamate (MSG) Allergy (Severe, Verified 09/25/25 13:44) MIGRAINES Benadryl Allergy (Unknown, Uncoded 09/25/25 13:44) throat swelling tbhq Adverse Reaction (Severe, Uncoded 09/25/25 13:44) migraines Medication List - Last Reconciled 09/25/25 by María Nielsen LPN albuterol sulfate 90 mcg/actuation 2 puffs inhalation Q4-6H PRN fluticasone furoate-vilanterol 200-25 mcg/dose (Breo Ellipta) 1 inh inhalation DAILY levothyroxine 137 mcg PO DAILY omeprazole 1 cap PO DAILY oxycodone 5 mg orally PRN; 10mg at hs sumatriptan succinate 1 tab PO DIRECTED HPI HPI CHRONIC PAIN: Details: History of Present Illness The patient is a 65-year-old male presenting with 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 The patient underwent surgery at [facility] with Dr. Valadez, but the nerve was already by the time tests were conducted. The patient reports chronic back pain, which has been exacerbated by increased physical activity. He has a history of two back surgeries, the last being a discectomy in 2004, followed by a procedure to remove scar tissue in [place] a year later. The patient experiences anxiety during MRI procedures and requires sedation, such as Valium, to complete them. The patient also has a history of psoriatic arthritis, for which he takes medication and undergoes regular kidney function tests due to the medication regimen. Pain Description - Onset: Chronic back pain has been present for several years, exacerbated by physical activity in recent months. - Quality: The pain is described as worsening and persistent. - Location: Primarily in the back, with radiation to the legs. - Exacerbating factors: Increased physical activity worsens the pain. - Relieving factors: The patient supplements prescribed medication with Tylenol for pain relief. Physical Exam - Appears afebrile. - Alert and oriented. - Mood and affect appropriate. - Follows and participates in conversation appropriately. - Respiratory effort is unlabored. Pain Management - Affect: The patient reports increased pain impacting his daily activities. - Analgesia: Currently on oxycodone 5 mg, five times a day, supplemented with Tylenol. - Adverse Effects: No specific adverse effects from medication reported. - Activities of Daily Living: Pain is exacerbated by work and physical activity. - Aberrant Drug Related Behaviors: The patient reports taking more medication than prescribed due to inadequate pain control. [facility] Medical History Tubular adenoma of colon Nocturia more than twice per night Back pain Psoriatic arthritis Spinal stenosis DDD (degenerative disc disease) Hypothyroidism GERD (gastroesophageal reflux disease) Hx of migraines History of asbestos exposure Elevated cholesterol Surgical History History of lumbar discectomy History of colonoscopy History of esophagogastroduodenoscopy (EGD) History of cholecystectomy History of right inguinal hernia repair History of left inguinal hernia repair S/P scrotal varicocelectomy Family History Brother Myocardial infarction Diabetes Mother Myocardial infarction Father No problems noted. Social History Are you a primary career services representative to a significant other at home: No Do you presently have visiting nurse or other home services: No Patient Tobacco Use Status: Never used Tobacco Physical Exam Vital Signs: Last Vital Signs Pulse 71 09/25/25 13:42 Resp 16 09/25/25 13:42 BP 122/82 09/25/25 13:42 Pulse Ox 97 09/25/25 13:42 Oxygen Delivery Method Room Air 09/25/25 13:42 BMI result Body Mass Index 27.9 Assessment & Plan Assessment & Plan (1) Lumbar radiculopathy: Code(s): M54.16 - Radiculopathy, lumbar region Category: Medical Plan Plan Patient was informed and verbally consented to the use of an ambient scribe for clinic note documentation during this visit. 1. Phrenic Nerve Dysfunction - No new interventions discussed for phrenic nerve dysfunction during this visit. 2. Chronic Back Pain - An MRI of the lumbar spine with contrast was ordered to assess the current status. - Follow-up: Patient to schedule a follow-up appointment after the MRI to discuss results and potential interventions. 3. Psoriatic Arthritis - Continue current medication regimen and regular kidney function tests. Discussion Notes I discussed with the patient the need for an MRI of the lumbar spine to evaluate the current status of his back pain. We also talked about the importance of scheduling a follow-up appointment after the MRI to review the results and consider further treatment options. Patient Instructions - Schedule an MRI of the lumbar spine with contrast as soon as possible. - Contact the office to arrange a follow-up appointment after the MRI is completed. - Continue current medication regimen and report any new symptoms or side effects. Orders: Orders MR lumbar spine wo/w con 09/25/25 M54.16 - Radiculopathy, lumbar region Coding Level of Care Code Est Pt Level 4 (95851) Diagnoses Lumbar radiculopathy M54.16
[2025-09-25 13:42] VITALS: BP 122/82; PULSE 71; RESP 16; O2SAT 97; BMI 27.9
== END 2025-09-25 13:58 | disposition home or self-care (01) ==
LOC: HO.PMC 13:28
PROVIDERS: PCP Physician Assistant; Visit Provider Internal Medicine
DX: M54.16 Radiculopathy, lumbar region (principal)
CPT/HCPCS: 99214

== ENCOUNTER → 2025-09-25 13:27 | Outpatient (BNVA) | payer MEDICARE, MEDICAID, SELFPAY | PROVIDERS: PCP Physician Assistant; Visit Provider Internal Medicine | DX: M54.16 Radiculopathy, lumbar region (principal) | CPT/HCPCS: 99212 ==

== ENCOUNTER → 2025-10-20 17:51 | Outpatient (BNV) | payer MEDICARE, MEDICAID, SELFPAY | PROVIDERS: PCP Physician Assistant; Visit Provider Radiology Vascular & Interventional Radiology | DX: M47.26 Other spondylosis with radiculopathy, lumbar region (principal); M99.63 Osseous and subluxation stenosis of intervertebral foramina of lumbar region | CPT/HCPCS: 72148 ==

== ENCOUNTER 2025-10-20 18:10 | Outpatient (REF) | payer MEDICARE, MEDICAID, SELFPAY ==
--- OUTSIDE RECORDS SUMMARY | 2011-08-14 23:00 | XMS_ITS | Encounter Summary ---
Author Organization [facility] Address [address] [place] [address] [place] [phone] Phone Care Team Providers Care Assembly Mechanic Name Role Phone Unavailable Primary Care Provider Unavailabl e Encounter Details Date Type Department Care Team (Late st Contact Info) Description 08/15/2011 Hospital Encounter [facility],Outside Imaging [address] [place], [place] [phone] System, Provider Not In, PhD [address] [address] Social History Tobacco Use Types Packs/Day Years [...] Description 12/27/2025 9:00 AM EST Office Visit [facility] Rheumatology [address] [place] [address] Thelma Anna MD 22 [facility], [address] [place] [address] [email or web address] documented as of this encounter Procedures Procedure [...] It is not the complete legal health record.[facility]
--- NOTE | ~2025-10-20 | MR_ITS ---
CLINICAL HISTORY: M54.16 - Radiculopathy, lumbar region MR lumbar spine without gadolinium Comparison: None Findings: No acute fracture or acute malalignment. Severe degenerative changes are present with near-complete disc space loss throughout the lumbar spine. The conus terminates normally at L1. The cauda equina are unremarkable. Retroperitoneal and paravertebral soft tissues are within expected limits. No suspicious marrow lesion. Individual levels: T12-L1: Small posterior disc protrusion with no significant central canal stenosis or neural foraminal narrowing. L1-L2: Prominent broad-based disc protrusion and facet hypertrophy. Moderate bilateral neural foraminal narrowing and moderately severe central canal stenosis. L2-L3: Broad-based and right eccentric disc protrusion. Moderately severe central canal stenosis and severe right neural foraminal narrowing. L3-L4: Broad-based disc osteophyte complex. Significant facet hypertrophy. Severe central canal stenosis and bilateral neural foraminal narrowing. L4-L5: Left eccentric disc osteophyte complex. Severe left neural foraminal narrowing and moderate right neural foraminal narrowing. There is also moderately severe central canal stenosis. L5-S1: No significant central canal stenosis. Mild bilateral neural foraminal narrowing. Impression: Advanced lumbar spondylosis with multilevel central canal stenosis and neural foraminal narrowing. This document has been electronically signed by: Tru Lamas MD on 10/23/2025 09:33:15
--- OUTSIDE RECORDS SUMMARY | 2025-10-20 18:13 | XMS_ITS | Encounter Summary ---
Author Organization [facility] Address [address] [place] [phone] Phone Care Team Providers Care Plate Grinder Name Role Phone Thelma Anna MD Unavailable [phone] Ketan Hoffmann MD Unavailable Duc Burch Primary Care Provider Michelle Richardson Primary Care Provider [phone] Encounter Details Date Type Department Care Team (Late st Contact Info) Description 01/24/2020 Ancillary Orders [facility],Outside Imaging [address] [place], [place] [id number] System, Provider Not In, [place] [address] Social History Tobacco Use Types Packs/Day Years [...] Description 12/27/2025 9:00 AM EST Office Visit [facility] Rheumatology [address] [place] [phone] Thelma Anna MD [address] [place] [address], [address] [place] [address] [email or web address] documented as of this encounter Results * [...] on filedocumented in this encounter Care Teams Plate Grinder Relationship Specialty Start Date End Date Duc Burch PA [address] [place] [address] [place] [id number] [email or web address] PCP - General Unknown Provider Specialty 09/29/18 06/11/23 Michelle Richardson PA [address] [place] [phone] [email or web address] PCP - General Physician Form Press Operator 06/12/23 Thelma nAna MD [address] [facility], [address] [place] [address] [email or web address] Historical LMR Provider 09/10/17 Ketan Hoffmann MD [address] [address] Historical LMR Provider 09/10/17 2 documented as of this encounter Additional Source Comments The information contained in this document represents components of the legal health record. It is not the complete legal health record.[facility]
--- OUTSIDE RECORDS SUMMARY | 2025-10-20 18:13 | XMS_ITS | Clinical Summary ---
Author Organization [facility] Address [address] [place] [address] Phone Care Team Providers Care Ceo And Founder Name Role Phone Thelma Anna MD Unavailable [phone] Michelle Richardson Primary Care Provider [phone] Allergies Active Allergy Reactions Criticality Noted Date [...] 4 (four) hours as needed. 4 Active secukinumab (COSENTYX PEN, 2 PENS,) 150 mg/mL subcutaneous pen injectionIndicati ons:Psoriatic arthritis Inject 1 mL (150 mg total) under the skin every 28 days. 1 mL 11 5 Active Active Problems Problem Noted Date Diagnosed Date Long-term current use of secukinumab 08/24/2025 Assessment & Plan (08/24/2025 11:43 AM EDT): Hold Cosentyx when running fever, feeling sick or taking antibiotics. Complete entire course of antibiotics and wait at least 48 hours after the last dose to make sure that infection does not recur. Monitor for injection site reactions. Make sure to inform any new MD, PA, SPLICER OPERATOR about chronic therapy with Cosentyx particularly in emergency situations. Achilles tendinitis of [...] is scheduled for it on Thursday-07/20/2024 at [facility] in [place] with Dr. Valadez Assessment & Plan (05/17/2024 [...] 2018 Psoriatic arthritis 11/25/2017 Assessment & Plan (08/24/2025 11:42 AM EDT): Clinically skin disease appears more [...] subcutaneous Enbrel since early December 2024 until summer his skin disease was no better and he switched Enbrel to Cosentyx (secukinumab) that appears helpful for both skin and joint disease. Get monitoring labs today-standing orders in [facility]. Gentle, regular exercise routine. Get yearly influenza vaccine by mid-and August 2025. Continue close follow-up with neurosurgeon as scheduled. Avoid sick contacts and follow diligent hand hygiene Call with problems or questions otherwise return in 16 weeks. Assessment & Plan (04/24/2025 10:38 AM EDT): [...] to next visit - standing orders in [facility]. Carefully monitor his disease as he [...] to next visit - standing orders in [facility]. Carefully continue current medications as prescribed. [...] to next visit - standing orders in [facility]. Carefully continue current medications as prescribed. [...] to next visit - standing orders in [facility]. Carefully continue current medications as prescribed. [...] to next visit - standing orders in [facility]. Carefully continue current medications as prescribed. [...] Gastroesophageal reflux disease 11/25/2017 Assessment & Plan (08/24/2025 11:14 AM EDT): Avoid late, large, spicy meals. Keep headboard elevated at 45 angle for nighttime. Carefully continue Prilosec 20 mg every other day as prescribed Assessment & Plan (04/24/2025 10:01 AM EDT): [...] Consider massage versus warm pool exercise program senior care current use of opiate analgesic 2017 Assessment & Plan (08/24/2025 11:14 AM EDT): Take exactly as prescribed, try to limit frequency by employing non-for pharmacologic measures such as topical creams, warm packs, patches, regular relaxation/mediation/positive imagery sessions etc. Build up regular exercise routine up to the goal of 30-45 minutes daily. Monitor for increasing shortness of breath, reduced respiratory drive, increasing constipation Assessment & Plan (04/24/2025 10:02 AM EDT): [...] Problem Noted Date Diagnosed Date Resolved Date Encounter for monitoring of etanercept therapy 04/24/2025 08/24/2025 Assessment & Plan (04/24/2025 10:02 AM EDT): Hold Enbrel when running fever, feeling sick or taking antibiotics. Complete entire course of antibiotics and wait at least 48 hours after the last dose to make sure that infection does not recur. Monitor for injection site reactions. Make sure to inform any new MD, PA, SPLICER OPERATOR about chronic therapy with Enbrel particularly in emergency situations. Long-term current use of tofacitinib 12/19/2024 04/24/2025 [...] sure to inform any new MD, PA, SPLICER OPERATOR about chronic therapy with Xeljanz particularly in [...] Make sure to inform any new MD, SPLICER OPERATOR or PA about chronic immunosuppression with Enbrel [...] Make sure to inform any new MD, SPLICER OPERATOR or PA about chronic immunosuppression with Enbrel [...] Make sure to inform any new MD, SPLICER OPERATOR or PA about chronic immunosuppression with Enbrel [...] Make sure to inform any new MD, SPLICER OPERATOR or PA about chronic immunosuppression with Enbrel especially in emergency situations. Avoid sick contacts. Regular laboratory and office visits for monitoring safety as scheduled. Assessment & Plan (04/16/2022 10:20 AM EDT): Make sure to inform any new MD, SPLICER OPERATOR or PA about chronic immunosuppression with Enbrel especially in emergency situations. Avoid sick contacts. Regular laboratory and office visits for monitoring safety as scheduled. Assessment & Plan (11/25/2021 10:20 AM EST): Make sure to inform any new MD, SPLICER OPERATOR or PA about chronic immunosuppression with Enbrel especially in emergency situations. Avoid sick contacts. Regular laboratory and office visits for monitoring safety as scheduled. Assessment & Plan (08/14/2021 8:14 AM EDT): Make sure to inform any new MD, SPLICER OPERATOR or PA about chronic immunosuppression with Enbrel especially in emergency situations. Avoid sick contacts. Regular laboratory and office visits for monitoring safety as scheduled. Assessment & Plan (05/13/2021 8:26 AM EDT): Make sure to inform any new MD, SPLICER OPERATOR or PA about chronic immunosuppression with Enbrel especially in emergency situations. Avoid sick contacts. Regular laboratory and office visits for monitoring safety as scheduled. Assessment & Plan (11/09/2020 4:04 PM EST): Make sure to inform any new MD, SPLICER OPERATOR or PA about chronic immunosuppression with Enbrel especially in emergency situations. Avoid sick contacts. Regular laboratory and office visits for monitoring safety as scheduled. Assessment & Plan (08/02/2020 11:16 AM EDT): Make sure to inform any new MD, SPLICER OPERATOR or PA about chronic immunosuppression with Enbrel especially in emergency situations. Avoid sick contacts. Regular laboratory and office visits for monitoring safety as scheduled. Assessment & Plan (05/07/2020 9:00 AM EDT): Make sure to inform any new MD, SPLICER OPERATOR or PA about chronic immunosuppression with Enbrel especially in emergency situations. Avoid sick contacts. Regular laboratory and office visits for monitoring safety as scheduled. Assessment & Plan (11/25/2019 8:32 AM EST): Make sure to inform any new MD, SPLICER OPERATOR or PA about chronic immunosuppression with Enbrel especially in emergency situations. Avoid sick contacts. Regular laboratory and office visits for monitoring safety as scheduled. Assessment & Plan (09/06/2019 3:50 PM EDT): Make sure to inform any new MD, SPLICER OPERATOR or PA about chronic immunosuppression with Enbrel especially in emergency situations. Avoid sick contacts. Regular laboratory and office visits for monitoring safety as scheduled. Assessment & Plan (05/24/2019 11:45 PM EDT): Make sure to inform any new MD, SPLICER OPERATOR or PA about chronic immunosuppression with Enbrel especially in emergency situations. Regular laboratory and office visits for monitoring safety as scheduled. Assessment & Plan (01/23/2019 11:44 AM EST): Make sure to inform any new MD, SPLICER OPERATOR or PA about chronic immunosuppression with Enbrel [...] Encounters Date Type Department Care Team Description 08/24/2025 11:35 AM EDT - 08/24/2025 11:59 PM EDT Hospital Encounter [address] [place] [address] Thelma Anna MD Discharge Disposition: Home or Self Care 08/24/2025 11:00 AM EDT Office Visit [facility] Rheumatology [address] [place] [address] Thelma Anna MD Psoriatic arthritis (Primary Dx); Long-term current use of secukinumab; senior care current use of opiate analgesic; Gastroesophageal reflux disease, unspecified whether esophagitis present from Last 3 Months Immunizations Immunization Administration [...] Sign Reading Time Taken Comments Blood Pressure 118/70 08/24/2025 11:02 AM EDT Pulse 77 08/24/2025 11:02 AM EDT Temperature - - Respiratory Rate - - Oxygen Saturation 96% 08/24/2025 11:02 AM EDT Inhaled Oxygen Concentration - - Weight 79.9 kg (176 lb 3.2 oz) 08/24/2025 11:02 AM EDT Height 175.3 cm (5' 9 ) 08/24/2025 11:02 AM EDT Body Mass Index 26.02 08/24/2025 11:02 AM EDT Plan of Treatment Upcoming Encounters Date Type Department Care Team (Late st Contact Info) Description 12/27/2025 9:00 AM EST [facility] [address] [place] [address] Thelma Anna MD 22 [facility], [address] [place] [address] [email or web address] Health Maintenance Due Date Last Done Comments TSH LEVEL 1961 DEPRESSION SCREENING 1973 HIV ONE-TIME SCREENING (18-65 YEARS) 1979 COLOGUARD 2006 COLONOSCOPY 2006 COLORECTAL CANCER SCREENING 2006 FIT TEST 2006 FOBT 2006 SIGMOIDOSCOPY 2006 VIRTUAL COLONOSCOPY 2006 PNEUMOCOCCAL VACCINES (50+ years) (1 of 1 - PCV) 2011 INFLUENZA VACCINE (#1) 2025 , 01/21/2024, 09/05/2022, Additional history exists COVID-19 VACCINE (2024- season) 2025 09/05/2022, 10/30/2021, 03/25/2021, Additional history exists SCREENING FOR DIABETES 08/24/2028 08/24/2025 Adult Td,Tdap Booster 09/07/2028 09/07/2018 LIPID PANEL 08/25/2029 08/25/2024 RSV VACCINE (1 - 1-dose 75+ series) 2036 HEPATITIS C SCREENING Completed 08/25/2024 ZOSTER VACCINES Completed 02/01/2025, 09/12/2024 SMOKING STATUS SCREENING (Once After 26 Yrs) Completed 08/24/2025 HEPATITIS A VACCINES Aged Out No long [...] Procedure Name Priority Date/Time Associated Diagnosis Comments COMPREHENSIVE METABOLIC PANEL (CMP) Routine 08/24/2025 11:45 AM EDT 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 current 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 of opiate analgesic Encounter for monitoring of etanercept therapy C-REACTIVE PROTEIN (CRP) Routine 08/24/2025 11:45 AM EDT Psoriatic arthritis senior care current use of opiate analgesic Encounter for monitoring of etanercept therapy SEDIMENTATION RATE (ESR) Routine 08/24/2025 11:45 AM EDT Psoriatic arthritis senior care current use of opiate analgesic Encounter for monitoring of etanercept therapy CBC AND DIFFERENTIAL Routine 08/24/2025 11:45 AM EDT 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5 - 1.5 mg/dL [facility] GLUCOSE 84 70 - 99 mg/dL [facility] ALBUMIN 4.4 3.9 - 4.8 g/dL [facility] TOTAL PROTEIN 7.2 6.5 - 8.0 g/dL [facility] CALCIUM 9.0 8.4 - 10.3 mg/dL [facility] ALKALINE PHOSPHATASE 89 39 - 117 U/L [facility] TOTAL BILIRUBIN 0.4 0.0 - 1.2 mg/dL [facility] AST 24 0 - 37 U/L [facility] ALT 13 0 - 40 U/L [facility] GLOBULIN 2.8 1 - 4.8 g/dL [facility] EGFR 95 >59 mL/min/1.7 3m2 [facility] Comment:Estimated glomerular filtration rate calculated using the CKD-EPI refit equation. ANION GAP 16 10 - 20 mmol/L [facility] Blood 08/24/2025 11:4 5 AM EDT 08/24/2025 11:51 AM EDT Thelma Anna MD LAB BLOOD BKR ORDERABLES Final Result Performing Organization Address City/[facility]/ZIP Co de Phone Number [address] [address] * (ABNORMAL) Sedimentation rate (ESR) (08/24/2025 11:45 AM EDT) ESR 22(H) 0 - 20 mm/h [facility] Blood 08/24/2025 11:4 5 AM EDT 08/24/2025 11:51 AM EDT us Thelma Anna MD LAB BLOOD BKR ORDERABLES Final Result Performing Organization Address [facility] Co de Phone Number [address] [address] * (ABNORMAL) CBC and differential (08/24/2025 11:45 AM EDT) WBC 4.92 4.00 - 11.00 K/uL [facility] RBC 4.40(L) 4.50 - 5.90 M/uL [facility] HGB 13.7 13.5 - 17.5 g/dL [facility] HCT 41.4 41.0 - 53.0 % [facility] PLT 255 150 - 450 K/uL [facility] MCV 94.1 80.0 - 100.0 fL [facility] MCH 31.1(H) 27.0 - 31.0 pg [facility] MCHC 33.1 32.0 - 36.0 g/dL [facility] RDW 12.7 11.5 - 14.5 % [facility] MPV 11.2 8.4 - 12.0 fL [facility] NRBC 0.00 0.00 /100 WBCs [facility] ABSOLUTE NRBC 0.00 0.00 K/uL [facility] DIFF METHOD Auto [facility] NEUTS 74.0 48.0 - 76.0 % [facility] LYMPHS 15.7(L) 18.0 - 41.0 % [facility] MONOS 8.1 4.0 - 11.0 % [facility] EOS 1.4 0.0 - 5.0 % [facility] BASOS 0.6 0.0 - 1.5 % [facility] Granulocytes, immature (%) 0.2 0.0 - 0.9 % [facility] ABSOLUTE NEUTS 3.64 1.92 - 7.60 K/uL [facility] ABSOLUTE LYMPHS 0.77 0.72 - 4.10 K/uL [facility] ABSOLUTE MONOS 0.40 0.16 - 1.10 K/uL [facility] ABSOLUTE EOS 0.07 0.00 - 0.50 K/uL [facility] ABSOLUTE BASOS 0.03 0.00 - 0.15 K/uL [facility] Granulocytes, immature 0.01 0.00 - 0.09 K/uL [facility] Blood 08/24/2025 11:4 5 AM EDT 08/24/2025 11:51 AM EDT us Thelma Anna MD LAB BLOOD BKR ORDERABLES Final Result Performing Organization Address City/State/[facility] Co de Phone Number [address] [address] * C-Reactive Protein (08/24/2025 11:45 AM EDT) C REACTIVE PROTEIN <3.0 0.0 - 4.0 mg/L [facility] Blood 08/24/2025 11:4 5 AM EDT 08/24/2025 11:51 AM EDT us Thelma Anna MD LAB BLOOD BKR ORDERABLES Final Result [address] [address] * Hepatitis C antibody, qualitative (08/25/2024 11:42 AM EDT) HCV NON-REACTIV E NON-REACTI VE [facility] Blood 08/25/2024 11:4 2 AM EDT 08/25/2024 11:48 AM EDT us Thelma Anna MD LAB BLOOD BKR ORDERABLES Final Result Performing Organization Address [facility] Co de Phone Number [address] [address] * (ABNORMAL) Lipid panel (08/25/2024 11:42 AM EDT) HDL 69 mg/dL [facility] Comment: Interpretation <40 mg/dL: Low HDL cholesterol (major risk factor for CHD) Greater than or equal to 60 mg/dL: High HDL cholesterol ( negative risk factor for CHD) HDL - cholesterol is affected by a number of factors, e.g. smoking, excerise, hormones, sex and age. CHOLESTEROL 239 0 - 240 mg/dL [facility] TRIGLYCERIDES 77 30 - 160 mg/dL [facility] LDL 155(H) 50 - 129 mg/dL [facility] Comment: LDL levels in terms of risk for coronary heart disease: <100 mg/dL: Optimal 100-129 mg/dL: Near or above optimal 130-159 mg/dL: Borderline high 160-189 mg/dL: High >190 mg/dL: Very High CARDIAC RISK RATIO 3.5 3.4 - 5.0 [facility] Blood 08/25/2024 11:4 2 AM EDT 08/25/2024 11:48 AM EDT us Thelma Anna MD LAB BLOOD BKR ORDERABLES Final Result Performing Organization Address City/[facility]/ZIP Co de Phone Number [address] [address] from Last 3 Months or Most Recently Relevant to Health Maintenance [facility] & [facility] & B Member Subscriber Plan / Payer (Ef fective 2011-Present) Name:Emiliano Zamarripa Member ID:[id number] Relation to Subscriber:Self Name:Emiliano Zamarripa Subscriber ID:[id number] Payer ID:[id number] Group ID:Not on file Type:Medicare Address: [employer] [address] [place] [id number] [place] MEDIC[place] PART A & B [facility] & [facility] & [facility] & B [facility] MEDICARE PART A & B Care Teams Ceo And Founder Relationship Specialty Start Date End Date Michelle Richardson PA [address] [place] [phone] [email or web address] - General Physician Seeing Eye Dog Trainer 06/12/23 Thelma Anna MD [address] [place] [address] [address] [place] [address] [email or web address] Historical LMR Provider 09/10/17 Additional Source Comments The information contained in this document represents components of the legal health record. It is not the complete legal health record.[facility]
--- OUTSIDE RECORDS SUMMARY | 2025-10-20 18:13 | XMS_ITS | Encounter Summary ---
Author Organization [facility] Address [address] [place] [address] Phone Care Team Providers Care Stained Glass Glazier Name Role Phone Thelma Anna MD Unavailable [phone] Ketan Hoffmann MD Unavailable [phone] Duc Burch Primary Care Provider [phone] Michelle Richardson Primary Care Provider [phone] Encounter Details Date Type Department Care Team (Late st Contact Info) Description 01/18/2020 Procedure Pass [address] [place] [address] Social History Tobacco Use Types Packs/Day Years [...] Description 12/27/2025 9:00 AM EST Office Visit [facility] Rheumatology [address] [place] [address] Thelma Anna MD 22 [facility] [address] [place] [address] [email or web address] documented as of this encounter Visit Diagnoses Not on filedocumented in this encounter Care Teams Stained Glass Glazier Relationship Specialty Start Date End Date Duc Burch PA [address] [address] [email or web address] General Unknown Provider Specialty 09/29/18 06/11/23 Michelle Richardson PA [address] [place] [phone] [email or web address] - General Physician [email or web address] Design Mechanical Engineer 06/12/23 Thelma Anna MD [address] [address] [email or web address] Historical LMR Provider 09/10/17 Ketan Hoffmann MD [address] [address] Historical LMR Provider 09/10/17 2 documented as of this encounter Additional Source Comments The information contained in this document represents components of the legal health record. It is not the complete legal health record.[facility]
--- OUTSIDE RECORDS SUMMARY | 2025-10-20 18:13 | XMS_ITS | Encounter Summary ---
Author Organization [facility] Address [address] [place] [address] [place] [address] Phone Care Team Providers Care Orthopedic Technician Name Role Phone Thelma Anna MD Unavailable Ketan Hoffmann MD Unavailable [phone] Duc Burch Primary Care Provider [phone] Michelle Richardson Primary Care Provider [phone] Reason for Referral * MRI/CAT Scan - Closed Specialty Diagnoses / Procedures Referred By Contac t Referred To Contact Radiology Diagnoses Other intervertebral disc displacement, lumbar region Procedures MRI Lumbar Spine Ulysses Weaver MD [address] [place] [address] Phone: tel: fax: Referral ID Status Reason Start Date Expiration Date Visits Re quested Visits Authorized [id number] Closed 01/18/2020 01/17/2021 1 1 Encounter Details Date Type Department Care Team (Late st Contact Info) Description 01/18/2020 Ancillary Orders Virtual Department [address] [place] [address] Ulysses Weaver MD [address] [place] [address] Other intervertebral disc displacement, lumbar region Social [...] Description 12/27/2025 9:00 AM EST Office Visit [facility] Rheumatology [address] [place] [address] Thelma Anna MD 22 [facility], [address] [place] [address] [email or web address] documented as of this encounter Results * [...] on the left at L4-L5. POS - [id number] Narrative 01/20/2020 6:00 PM EST EXAM: MRI [...] on the left at L4-L5. POS - [id number] Ulysses Weaver MD [facility] [place]SPECIALTY Final Result documented in this encounter Visit Diagnoses Diagnosis Other intervertebral disc displacement, lumbar region Other intervertebral disc displacement, lumbar region documented in this encounter Care Teams Orthopedic Technician Relationship Specialty Start Date End Date Duc Burch PA [address] [facility] [address] [place] [address] [email or web address] - General Unknown Provider Specialty 09/29/18 06/11/23 Michelle Richardson PA [address] [place] [phone] [email or web address] - General Physician [email or web address] Installer 06/12/23 Thelma Anna MD 22 [facility] [address] [place] [address] [email or web address] Historical LMR Provider 09/10/17 Ketan Hoffmann MD [address] [address] Historical LMR Provider 09/10/17 2 documented as of this encounter Additional Source Comments The information contained in this document represents components of the legal health record. It is not the complete legal health record.[facility]
--- OUTSIDE RECORDS SUMMARY | 2025-10-20 18:13 | XMS_ITS | Patient Health Record ---
Author Organization [facility] Address [address] [place] [address] Care Team Providers Care Hand Paster Name Role Phone JENNIFER MIRAMONTES Primary Care Provider Young Correa Unavailable [phone] Allergies Allergen (clinical drug ingredient) Drug/Non Drug Allergy documented on EMR Reaction Allergy Type Onset Date Status diphenhydramine Benadryl Unknown Drug Allergy A ctive carisoprodol Soma Unknown Drug Allergy Acti ve Reason For Referral No Information Medications Medication SIG (Take, Route, Frequency, Duration) Notes Start Date End Date Status oxyCODONE HCl Orally Active Levothyroxine Sodium 125 MCG Tablet 1 tablet in the morning on an empty stomach Orally Once a day Active Enbrel 50 MG/ML Solution Prefilled Syringe 1 ml Subcutaneous weekly Active Omeprazole 20 MG Capsule Delayed Release 1 capsule 30 minutes before morning meal Orally Once a day Active Imitrex as needed Active Immunizations Vaccine Route Administration Date Status Comme nts Influenza Unknown 08/23/2015 Administered Influenza Unknown 07/24/2020 Administered Social History Social History Additional Details Category Social Info Options Details Miscellaneous: Marital status: 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 Section Notes: Nonsmoker; no sig alcohol Nonsmoker; no sig alcohol Problems Problem Type SNOMED Code ICD Code Onset Dates Problem Status W/U Status Risk Notes Problem Screening for malignant neoplasm of colon (178012282) Encounter for screening for malignant neoplasm of colon (Z12.11) Active confirmed Problem History of adenomatous polyp of colon (417222477) History of adenomatous polyp of colon (Z86.010) Active confirmed Problem Gastroesophageal reflux disease (410932150) GERD (gastroesophag eal reflux disease) (K21.9) Active [...] OF [place] [address] [place] [address] [phone] [id number] PHIL LANCE Self - patient is the insured [facility] [address] [place] [address] [id number] PHIL LANCE Self - patient is the insured Medical (General) History Medical History History ICD Code Colonoscopy 07-22-2010--1 sma ll tubular adenoma, mild diiverticulosis, small internal hemorrhoids Chronic back problems--on Oxycodone Hypothyroidism Hyperlipidemia Denies AK,DM,CVA,Lung disease,renal dise ase Psoriatic arthritis--Dr. Bose Negative colonoscopy in 12/2015 Migraines GERD Surgical History Surgery Date(Month/Year) 2 lower back operations--L4/L5 surgery on a left varicocele hernia-right inguinal and 2 on the left [facility]
== END 2025-10-20 18:11 | disposition home or self-care (01) ==
LOC: HO.MRI 18:10
PROVIDERS: PCP Physician Assistant; Visit Provider Internal Medicine
DX: M54.16 Radiculopathy, lumbar region (principal)
CPT/HCPCS: 72148

== ENCOUNTER 2025-11-15 09:48 | Outpatient (REF) | payer MEDICARE, MEDICAID, SELFPAY ==
--- OUTSIDE RECORDS SUMMARY | 2011-08-14 23:00 | XMS_ITS | Encounter Summary ---
Author Organization [facility] Address [address] [place] [address] [place] [phone] Phone Care Team Providers Care Biblical Languages Professor Name Role Phone Unavailable Primary Care Provider Unavailabl e Encounter Details Date Type Department Care Team (Late st Contact Info) Description 08/15/2011 Hospital Encounter [facility],Outside Imaging [address] [place], [place] [id number] System, Provider Not In, PhD [address] [address] Social History Tobacco Use Types Packs/Day Years Used Date Smoking Tobacco: Never Smokeless Tobacco: Never Alcohol Use Standard Drinks/Week Comments No 0 (1 standard drink = 0.6 oz pur e alcohol) Education Answer Date Recorded Are you interested in more education? Not on alyson e 03/20/2023 Are you concerned about learning? Not on file 03/20/2023 No 03/20/2023 No 03/20/2023 Digital Access Answer Date Recorded No 04/15/2023 No 04/15/2023 Reliable internet access at home? Not on file 04/15/2023 Device with a working camera? Not on file Sex and Gender Information Value Date Recorded Sex Assigned at Not on file Legal Sex Male 9:47 PM EDT Gender Identity Not on file Sexual Orientation Not on file documented as of this encounter Plan of Treatment Upcoming Encounters Date Type Department Care Team (Late st Contact Info) Description 12/27/2025 9:00 AM EST Office Visit [facility] Rheumatology Clinic [address] [place] [address] Thelma Anna MD 22 [facility], [address] [place] [address] [email or web address] documented as of this encounter Procedures Procedure Name Priority Date/Time Associated Diagnosis Comments MRI LOWER EXTREMITY OUTSIDE (NO INTERPRETATION) Routine 08/15/2011 12:00 AM EDT documented in this encounter Results * MRI Lower Extremity Outside (No Interpretation) (08/15/2011 12:00 AM EDT) Narrative SYSTEMGENERATED, DOCUMENTATION - 01/24/2020 5:24 PM EST This study is for PACS storage only and not for interpretation. us Provider Not In System PhD IMG OUTSIDE IMAGING W /OUT INTERPRETATION Final Result documented in this encounter Visit Diagnoses Not on filedocumented in this encounter Additional Source Comments The information contained in this document represents components of the legal health record. It is not the complete legal health record.[facility]
--- OUTSIDE RECORDS SUMMARY | 2025-11-15 09:53 | XMS_ITS | Clinical Summary ---
Author Organization [facility] Address [address] [place] [address] Care Team Providers Care Boarder Hand Name Role Phone Michelle Richardson Primary Care Provider [phone] Surgical History Surgery Date Site/Laterality Comments CHOLECYSTECTOMY PROCEDURE: DE LAPAROSCOPY SURG CHOLECYSTECTOMY HERNIA REPAIR Bilateral PROCEDURE: DE RPR 1ST INGUN HRNA AGE 7 MO-5 YRS REDUCIBLE OTHER SURGICAL HISTORY N/A PROCEDURE: DE ESOPHAG MUC INTEG W/ESO EGD COLONOSCOPY N/A [...] Health Maintenance Due Date Last Done Comments Colorectal Cancer Screening: Colonoscopy 1961 DTaP,Tdap,and Td Vaccines (1 - Tdap) 1980 Pneumococcal Vaccine: 50+ Ye ars (1 of 1 - PCV) 2011 Zoster Vaccines (1 of 2) 2011 Cholesterol Screening (Lipid Panel) 12/22/2023 HIV Screening 12/22/2023 Hepatitis C Screening 12/22/2023 Social Influencers of Health Screening 12/22/2023 Depression Screening 11/23/2024 COVID-19 Vaccine (1 - 2024-2 6 season) 2025 Influenza Vaccine (#1) 2025 RSV Immunization Adult Patie nts (1 [...] age to complete this topic Care Teams Boarder Hand Relationship Specialty Start Date End Date Michelle Richardson PA [address] [place] [address] PCP - General 08/01/24
--- OUTSIDE RECORDS SUMMARY | 2025-11-15 09:54 | XMS_ITS | Encounter Summary ---
Author Organization [facility] Address [address] [place] [address] Phone Care Team Providers Care Tray Drier Operator Name Role Phone Thelma Anna MD Unavailable [phone] Ketan Hoffmann MD Unavailable [phone] Duc Burch Primary Care Provider [phone] Michelle Richardson Primary Care Provider [phone] Encounter Details Date Type Department Care Team (Late st Contact Info) Description 01/18/2020 Procedure Pass [address] [place] [address] Social History Tobacco Use Types Packs/Day Years [...] Description 12/27/2025 9:00 AM EST Office Visit [facility] [address] [place] [address] Thelma Anna MD 22 [facility] [address] [place] [address] [email or web address] documented as of this encounter Visit Diagnoses Not on filedocumented in this encounter Care Teams Tray Drier Operator Relationship Specialty Start Date End Date Duc Burch PA [address] [address] [email or web address] PCP - General Unknown Provider Specialty 09/29/18 06/11/23 Michelle Richardson PA [address] [place] [id number] [email or web address] PCP - General Physician Associate Professor Of Biostatistics 06/12/23 Thelma Anna MD [address] [place] [address] Historical LMR Provider 09/10/17 Ketan Hoffmann MD [address] [address] Historical LMR Provider 09/10/17 2 documented as of this encounter Additional Source Comments The information contained in this document represents components of the legal health record. It is not the complete legal health record.[facility]
--- OUTSIDE RECORDS SUMMARY | 2025-11-15 09:54 | XMS_ITS | Encounter Summary ---
Author Organization [facility] Address [address] [place] [address] [place] [address] Phone Care Team Providers Care Receiving Distribution Station Operator Name Role Phone Thelma Anna MD Unavailable [phone] Ketan Hoffmann MD Unavailable [phone] Duc Burch Primary Care Provider [phone] Michelle Richardson Primary Care Provider [phone] Encounter Details Date Type Department Care Team (Late st Contact Info) Description 01/24/2020 Ancillary Orders [facility] [address] [place], [place] [id number] System, Provider Not In, [place] [address] Social History Tobacco Use Types Packs/Day Years [...] Description 12/27/2025 9:00 AM EST Office Visit [facility] [address] [place] [address] Thelma Anna MD 22 [facility], [address] [place] [address] [email or web address] documented as of this encounter Results * [...] on filedocumented in this encounter Care Teams Receiving Distribution Station Operator Relationship Specialty Start Date End Date Duc Burch PA [address] [place] [address] [email or web address] PCP - General Unknown Provider Specialty 09/29/18 06/11/23 Michelle Richardson PA [address] [place] [phone] [email or web address] PCP - General Physician Clinical Analyst 06/12/23 Thelma Anna MD 22 [facility], [address] [place] [address] [email or web address] Historical LMR Provider 09/10/17 Ketan Hoffmann MD [address] [address] Historical LMR Provider 09/10/17 2 documented as of this encounter Additional Source Comments The information contained in this document represents components of the legal health record. It is not the complete legal health record.[facility]
--- OUTSIDE RECORDS SUMMARY | 2025-11-15 09:54 | XMS_ITS | Clinical Summary ---
Author Organization [facility] Address [address] [place] [address] Phone Care Team Providers Care Scale Assembly Set Up Worker Name Role Phone Thelma Anna MD Unavailable Michelle Richardson Primary Care Provider [phone] Allergies Active Allergy Reactions Criticality Noted Date [...] sure to inform any new MD, PA, [employer]BESTOS REMOVAL WORKER about chronic therapy with Cosentyx particularly in [...] is scheduled for it on Thursday-07/20/2024 at [facility] in [place] with Dr. Valadez Assessment & Plan (05/17/2024 [...] disease. Get monitoring labs today-standing orders in [facility]. Gentle, regular exercise routine. Get yearly influenza [...] to next visit - standing orders in [facility]. Carefully monitor his disease as he decided [...] to next visit - standing orders in [facility]. Carefully continue current medications as prescribed. Joint [...] to next visit - standing orders in [facility]. Carefully continue current medications as prescribed. Joint [...] to next visit - standing orders in [facility]. Carefully continue current medications as prescribed. Joint [...] to next visit - standing orders in [facility]. Carefully continue current medications as prescribed. Joint [...] Consider massage versus warm pool exercise program correction current use of opiate analgesic 2017 Assessment [...] sure to inform any new MD, PA, [employer]BE[employer] REMOVAL WORKER about chronic therapy with Enbrel particularly in [...] sure to inform any new MD, PA, ASBE[employer]OS REMOVAL WORKER about chronic therapy with Xeljanz particularly in [...] Make sure to inform any new MD, ASBESTOS REMOVAL WORKER or PA about chronic immunosuppression with Enbrel [...] Make sure to inform any new MD, ASBESTOS REMOVAL WORKER or PA about chronic immunosuppression with Enbrel [...] Make sure to inform any new MD, ASBESTOS REMOVAL WORKER or PA about chronic immunosuppression with Enbrel [...] Make sure to inform any new MD, ASBESTOS REMOVAL WORKER or PA about chronic immunosuppression with Enbrel especially in emergency situations. Avoid sick contacts. Regular laboratory and office visits for monitoring safety as scheduled. Assessment & Plan (04/16/2022 10:20 AM EDT): Make sure to inform any new MD, ASBESTOS REMOVAL WORKER or PA about chronic immunosuppression with Enbrel especially in emergency situations. Avoid sick contacts. Regular laboratory and office visits for monitoring safety as scheduled. Assessment & Plan (11/25/2021 10:20 AM EST): Make sure to inform any new MD, ASBESTOS REMOVAL WORKER or PA about chronic immunosuppression with Enbrel especially in emergency situations. Avoid sick contacts. Regular laboratory and office visits for monitoring safety as scheduled. Assessment & Plan (08/14/2021 8:14 AM EDT): Make sure to inform any new MD, ASBESTOS REMOVAL WORKER or PA about chronic immunosuppression with Enbrel especially in emergency situations. Avoid sick contacts. Regular laboratory and office visits for monitoring safety as scheduled. Assessment & Plan (05/13/2021 8:26 AM EDT): Make sure to inform any new MD, ASBESTOS REMOVAL WORKER or PA about chronic immunosuppression with Enbrel especially in emergency situations. Avoid sick contacts. Regular laboratory and office visits for monitoring safety as scheduled. Assessment & Plan (11/09/2020 4:04 PM EST): Make sure to inform any new MD, ASBESTOS REMOVAL WORKER or PA about chronic immunosuppression with Enbrel especially in emergency situations. Avoid sick contacts. Regular laboratory and office visits for monitoring safety as scheduled. Assessment & Plan (08/02/2020 11:16 AM EDT): Make sure to inform any new MD, ASBESTOS REMOVAL WORKER or PA about chronic immunosuppression with Enbrel especially in emergency situations. Avoid sick contacts. Regular laboratory and office visits for monitoring safety as scheduled. Assessment & Plan (05/07/2020 9:00 AM EDT): Make sure to inform any new MD, ASBESTOS REMOVAL WORKER or PA about chronic immunosuppression with Enbrel especially in emergency situations. Avoid sick contacts. Regular laboratory and office visits for monitoring safety as scheduled. Assessment & Plan (11/25/2019 8:32 AM EST): Make sure to inform any new MD, ASBESTOS REMOVAL WORKER or PA about chronic immunosuppression with Enbrel especially in emergency situations. Avoid sick contacts. Regular laboratory and office visits for monitoring safety as scheduled. Assessment & Plan (09/06/2019 3:50 PM EDT): Make sure to inform any new MD, ASBESTOS REMOVAL WORKER or PA about chronic immunosuppression with Enbrel especially in emergency situations. Avoid sick contacts. Regular laboratory and office visits for monitoring safety as scheduled. Assessment & Plan (05/24/2019 11:45 PM EDT): Make sure to inform any new MD, ASBESTOS REMOVAL WORKER or PA about chronic immunosuppression with Enbrel especially in emergency situations. Regular laboratory and office visits for monitoring safety as scheduled. Assessment & Plan (01/23/2019 11:44 AM EST): Make sure to inform any new MD, ASBESTOS REMOVAL WORKER or PA about chronic immunosuppression with Enbrel [...] - 08/24/2025 11:59 PM EDT Hospital Encounter [address] [place] [address] Thelma Anna MD Discharge Disposition: Home or Self Care 08/24/2025 11:00 AM EDT Office Visit [facility] [address] [place] [address] Thelma Anna MD Psoriatic arthritis (Primary Dx); Long-term current use of secukinumab; tank terminal gauger current use of opiate analgesic; Gastroesophageal reflux [...] Description 12/27/2025 9:00 AM EST Office Visit [facility] [address] [place] [address] Thelma Anna MD 22 [facility], [address] [place] [address] [email or web address] Health Maintenance Due Date Last Done Comments [...] Routine 08/24/2025 11:45 AM EDT Psoriatic arthritis correction current use of opiate analgesic Encounter for monitoring of etanercept therapy C-REACTIVE PROTEIN (CRP) Routine 08/24/2025 11:45 AM EDT Psoriatic arthritis tank terminal gauger current use of opiate analgesic Encounter for monitoring of etanercept therapy SEDIMENTATION RATE (ESR) Routine 08/24/2025 11:45 AM EDT Psoriatic arthritis tank terminal gauger current use of opiate analgesic Encounter for monitoring of etanercept therapy CBC AND DIFFERENTIAL Routine 08/24/2025 11:45 AM EDT Psoriatic arthritis correction current use of opiate analgesic Encounter for monitoring of etanercept therapy LIPID PANEL Routine 08/25/2024 11:42 AM EDT Psoriatic arthritis HEPATITIS C ANTIBODY, QUALITATIVE Routine 08/25/2024 11:42 AM EDT Psoriatic arthritis Need for hepatitis C screening test from Last 3 Months or Most Recently Relevant to Health Maintenance Results * Comprehensive metabolic panel (08/24/2025 11:45 AM EDT) SODIUM 141 133 - 146 mmol/L [facility] POTASSIUM 4.1 3.3 - 5.1 mmol/L [facility] CHLORIDE 104 96 - 108 mmol/L [facility] CO2 25 21 - 35 mmol/L [facility] BUN 19 6 - 19 mg/dL [facility] CREATININE 0.90 0.5 - 1.5 mg/dL [facility] GLUCOSE 84 70 - 99 mg/dL [facility] ALBUMIN 4.4 3.9 - 4.8 g/dL [facility] TOTAL PROTEIN 7.2 6.5 - 8.0 g/dL [facility] CALCIUM 9.0 8.4 - 10.3 mg/dL [facility] ALKALINE PHOSPHATASE 89 39 - 117 U/L [facility] TOTAL BILIRUBIN 0.4 0.0 - 1.2 mg/dL [facility] AST 24 0 - 37 U/L [facility] ALT 13 0 - 40 U/L [facility] GLOBULIN 2.8 1 - 4.8 g/dL [facility] EGFR 95 >59 mL/min/1.7 3m2 [facility] Comment:Estimated glomerular filtration rate calculated using the CKD-EPI refit equation. ANION GAP 16 10 - 20 mmol/L [facility] Blood 08/24/2025 11:4 5 AM EDT 08/24/2025 11:51 AM EDT us Thelma Anna MD LAB BLOOD BKR ORDERABLES Final Result [address] [address] * (ABNORMAL) Sedimentation rate (ESR) (08/24/2025 11:45 AM EDT) ESR 22(H) 0 - 20 mm/h [facility] Blood 08/24/2025 11:4 5 AM EDT 08/24/2025 11:51 AM EDT us Thelma Anna MD LAB BLOOD BKR ORDERABLES Final Result Performing Organization Address [facility] Co de Phone Number [address] [address] * (ABNORMAL) CBC and differential (08/24/2025 11:45 AM EDT) WBC 4.92 4.00 - 11.00 K/uL [facility] RBC 4.40(L) 4.50 - 5.90 M/uL [facility] HGB 13.7 13.5 - 17.5 g/dL [facility] HCT 41.4 41.0 - 53.0 % [facility] PLT 255 150 - 450 K/uL [facility] MCV 94.1 80.0 - 100.0 fL [facility] MCH 31.1(H) 27.0 - 31.0 pg [facility] MCHC 33.1 32.0 - 36.0 g/dL [facility] RDW 12.7 11.5 - 14.5 % [facility] MPV 11.2 8.4 - 12.0 fL [facility] NRBC 0.00 0.00 /100 WBCs [facility] ABSOLUTE NRBC 0.00 0.00 K/uL [facility] DIFF METHOD Auto [facility] NEUTS 74.0 48.0 - 76.0 % [facility] LYMPHS 15.7(L) 18.0 - 41.0 % [facility] MONOS 8.1 4.0 - 11.0 % [facility] EOS 1.4 0.0 - 5.0 % [facility] BASOS 0.6 0.0 - 1.5 % [facility] Granulocytes, immature (%) 0.2 0.0 - 0.9 % [facility] ABSOLUTE NEUTS 3.64 1.92 - 7.60 K/uL [facility] ABSOLUTE LYMPHS 0.77 0.72 - 4.10 K/uL [facility] ABSOLUTE MONOS 0.40 0.16 - 1.10 K/uL [facility] ABSOLUTE EOS 0.07 0.00 - 0.50 K/uL [facility] ABSOLUTE BASOS 0.03 0.00 - 0.15 K/uL [facility] Granulocytes, immature 0.01 0.00 - 0.09 K/uL [facility] Blood 08/24/2025 11:4 5 AM EDT 08/24/2025 11:51 AM EDT us Thelma Anna MD LAB BLOOD BKR ORDERABLES Final Result Performing Organization Address City/State/[facility] Co de Phone Number [address] [address] * C-Reactive Protein (08/24/2025 11:45 AM EDT) C REACTIVE PROTEIN <3.0 0.0 - 4.0 mg/L [facility] Blood 08/24/2025 11:4 5 AM EDT 08/24/2025 11:51 AM EDT us Thelma Anna MD LAB BLOOD BKR ORDERABLES Final Result Performing Organization Address City/[facility]/ZIP Co de Phone Number [address] [address] * Hepatitis C antibody, qualitative (08/25/2024 11:42 AM EDT) HCV NON-REACTIV E NON-REACTI VE [facility] Blood 08/25/2024 11:4 2 AM EDT 08/25/2024 11:48 AM EDT us Thelma Anna MD LAB BLOOD BKR ORDERABLES Final Result Performing Organization Address [facility] Co de Phone Number [address] [address] * (ABNORMAL) Lipid panel (08/25/2024 11:42 AM EDT) HDL 69 mg/dL [facility] Comment: Interpretation <40 mg/dL: Low HDL cholesterol (major risk factor for CHD) Greater than or equal to 60 mg/dL: High HDL cholesterol ( negative risk factor for CHD) HDL - cholesterol is affected by a number of factors, e.g. smoking, excerise, hormones, sex and age. CHOLESTEROL 239 0 - 240 mg/dL [facility] TRIGLYCERIDES 77 30 - 160 mg/dL [facility] LDL 155(H) 50 - 129 mg/dL [facility] Comment: LDL levels in terms of risk for coronary heart disease: <100 mg/dL: Optimal 100-129 mg/dL: Near or above optimal 130-159 mg/dL: Borderline high 160-189 mg/dL: High >190 mg/dL: Very High CARDIAC RISK RATIO 3.5 3.4 - 5.0 C [facility] Blood 08/25/2024 11:4 2 AM EDT 08/25/2024 11:48 AM EDT us Thelma Anna MD LAB BLOOD BKR ORDERABLES Final Result Performing Organization Address City/[facility]/ZIP Co de Phone Number [address] [address] from Last 3 Months or Most Recently Relevant to Health Maintenance Insurance [place] [employer] [facility] & [facility] PART A & [facility] & [place] [facility] [facility] & [facility] MED[facility] PART A & B [facility] MEDIC[facility] PART A & B Care Teams Scale Assembly Set Up Worker Relationship Specialty Start Date End Date Michelle Richardson PA [address] [place] [phone] [email or web address] PCP - General Physician Afterschool 06/12/23 Thelma Anna MD [address] [place] [address] [email or web address] Historical LMR Provider 09/10/17 Additional Source Comments The information contained in this document represents components of the legal health record. It is not the complete legal health record.[facility]
--- OUTSIDE RECORDS SUMMARY | 2025-11-15 09:54 | XMS_ITS | Encounter Summary ---
Author Organization [facility] Address [address] [place] [address] [place] [address] Phone Care Team Providers Care Cue Worker Name Role Phone Thelma Anna MD Unavailable [phone] Ketan Hoffmann MD Unavailable [phone] Duc Burch Primary Care Provider [phone] Michelle Richardson Primary Care Provider [phone] Reason for Referral * MRI/CAT Scan - Closed Specialty Diagnoses / Procedures Referred By Contac t Referred To Contact Radiology Diagnoses Other intervertebral disc displacement, lumbar region Procedures MRI Lumbar Spine Ulysses Weaver MD [address] [place] [address] Phone: tel: fax: Referral ID Status Reason Start Date Expiration Date Visits Re quested Visits Authorized [id number] Closed 01/18/2020 01/17/2021 1 1 Encounter Details Date Type Department Care Team (Late st Contact Info) Description 01/18/2020 Ancillary Orders Virtual Department [address] [place] [address] Ulysses Weaver MD [address] [place] [address] Other intervertebral disc displacement, lumbar region Social [...] Description 12/27/2025 9:00 AM EST Office Visit [facility] [address] [place] [address] Thelma Anna MD 22 [facility], [address] [place] [address] [email or web address] documented as of this encounter Results [...] on the left at L4-L5. POS - [id number] Narrative 01/20/2020 6:00 PM EST EXAM: MRI [...] on the left at L4-L5. POS - [id number] Ulysses Weaver MD [facility] [place]CIALTY Final Result documented in this encounter Visit Diagnoses Diagnosis Other intervertebral disc displacement, lumbar region Other intervertebral disc displacement, lumbar region documented in this encounter Care Teams Cue Worker Relationship Specialty Start Date End Date Duc Burch PA [address] [facility] [address] [place] [address] [email or web address] PCP - General Unknown Provider Specialty 09/29/18 06/11/23 Michelle Richardson PA [address] [place] [phone] [email or web address] PCP - General Physician 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 It is not the complete legal health record.[facility]
--- OUTSIDE RECORDS SUMMARY | 2025-11-15 09:54 | XMS_ITS | Patient Health Record ---
Author Organization [facility] Address [address] [place] [address] Care Team Providers Care Bilingual Student Tutor Name Role Phone JENNIFER MIRAMONTES Primary Care Provider Young Correa Unavailable [phone] Allergies Allergen (clinical drug ingredient) Drug/Non Drug [...] Problem Screening for malignant neoplasm of colon (003160372) Encounter for screening for malignant neoplasm of colon (Z12.11) Active confirmed Problem History of adenomatous polyp of colon (020682690) History of adenomatous polyp of colon (Z86.010) Active confirmed Problem Gastroesophageal reflux disease (544150749) GERD (gastroesophag eal reflux disease) (K21.9) Active confirmed Plan Of Treatment Pending Test Test Name Order Date Pathology 03/06/2021 Future Test Test Name Order Date COLONOSCOPY 10/02/2015 UPPER GI ENDOSCOPY 02/12/2021 COLONOSCOPY 02/12/2021 Next Appt Details Provider Name:Young Dillon , 03/22/2026 09:00:00 AM, [address], [address], [place], [address], Insurance Providers Payer Name Payer Address Payer Phone Subscriber Number Group Number Insured Name Patient Relationship to Insured Coverage Start Date Coverage End Date [place] [address] [place] [address] [id number] PHIL LANCE Self - patient is the insured MEDICAID OF [facility] [address] [place] [address] [id number] PHIL LANCE Self - patient is the insured Medical (General) History Medical History History ICD Code Colonoscopy 07-22-2010--1 sma ll tubular adenoma, mild diiverticulosis, small internal hemorrhoids Chronic back problems--on Oxycodone Hypothyroidism Hyperlipidemia Denies NE,DM,CVA,Lung disease,renal dise ase Psoriatic arthritis--Dr. Bose Negative colonoscopy in 12/2015 Migraines GERD Surgical History Surgery Date(Month/Year) 2 lower back operations--L4/L5 surgery on a left varicocele hernia-right inguinal and 2 on the left [facility]Y
== END 2025-11-15 09:49 | disposition home or self-care (01) ==
LOC: HO.HAP 09:48
PROVIDERS: Visit Provider Physician Assistant
DX: Z46.1 Encounter for fitting and adjustment of hearing aid (principal)
CPT/HCPCS: V5266